=== PATIENT | female | born 1940 | race Caucasian/White ===

== ENCOUNTER 2016-07-31 18:40 | Inpatient (IN) | payer MEDICARE, BC ==
[~2016-07-31] VITALS: Ht 152.4 cm; Wt 57.1 kg
[2016-07-31] MEDS ORDERED: IV NORMAL SALINE 1,000ML 1,000 ML IV SCH (19:09)
[2016-07-31] MEDS ORDERED: 0.9 % SODIUM CHLORIDE 10 ML DISP.SYRIN. IV PRN (19:15)
--- NOTE | 2016-07-31 19:25 | PHYS DOC ---
General Chief Complaint: PSYCH EVALUATION Stated Complaint: patient is not eating or drinking and refuses to cooperate with staff Time Seen by MD: 18:44 Source: patient, family, EMS, EMS notes reviewed, [facility] records Exam Limitations: clinical condition Problems: History of Present Illness Initial Comments Patient is a pleasant 75-year-old female with history of Alzheimer's, Parkinson' s, spinal stenosis, unspecified breast mass and breast cancer, with a history of hypertension and hyperlipidemia who presents because she is refusing medication her sleep cycles off she combative since being admitted to their [facility] facility she's been throwing shoes refusing to eat refusing to cooperate with staff. She is also continuing to deteriorate in the way of effusion despite being given something for sleep at night. She was recently had Ambien added to her regimen for sleep as well as melatonin and Ativan. She's been referred to our hospital for inpatient evaluation and admission for psychiatric services. She at this time denies any chest pain abdominal pain or other complaints. Timing/Duration: getting worse, changing over time Severity: moderate Associated Symptoms: denies symptoms Past Medical History Psych/General History: other (Alzheimer's, Parkinson's, dementia, spinal stenosis, breast cancer, hypertension, hyperlipidemia,) Family History Significant Family History: no pertinent family hx Social History Smoker: non-smoker Alcohol: none Drugs: none Review of Systems Constitutional: no symptoms reported EENTM: no symptoms reported Respiratory: no symptoms reported Cardiovascular: no symptoms reported Gastrointestinal: no symptoms reported Genitourinary: no symptoms reported Musculoskeletal: no symptoms reported Skin: no symptoms reported Psychiatric/Neurological: see HPI All Other Systems: Reviewed and Negative Physical Exam General Appearance: no apparent distress, thin HEENT: PERRL/EOMI, normal ENT inspection, pharynx normal Neck: non-tender, full range of motion, supple, normal inspection Respiratory: chest non-tender, lungs clear, normal breath sounds, no respiratory distress Cardiovascular: normal peripheral pulses, regular rate, rhythm, no edema Gastrointestinal: normal bowel sounds, non tender Extremities: non-tender, normal range of motion Neurological/Psychiatric: alert, calm, responds to pain Appearance/Memory/Insight: appropriate appearance, denies illness, impaired insight, impaired recent memory Behavior/Eye Contact/Speech: cooperative Thoughts/Hallucinations: delusions Skin: normal color, warm/dry Orders, Labs, Meds Patient is oriented except at the scene peripheral health care unit here at [facility] we will complete a medical screening exam to ensure that no other source of infection is causing her altered mental status changes to include urinalysis, solid non-ST segment elevated patient my as well as electrolyte abnormalities or localized infection. 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 SUJATHA CORONADO MD Jul 31, 2016 19:24
[2016-07-31 19:55] LABS: BASO % 0 % (0-3); EOS # 0.1 x10^3/uL (0.0-0.7); EOS % 2 % (0-3); HEMATOCRIT 36.9 % (36.0-47.0); HEMOGLOBIN 12.1 g/dL (12.0-15.5); LYMPH # 2.1 x10^3/uL (1.0-4.8); LYMPH % 36 % (24-48); MEAN CORPUSCULAR HEMOGLOBIN 30 pg (25-35); MEAN CORPUSCULAR HGB CONC 33 g/dL (31-37); MEAN CORPUSCULAR VOLUME 91 fL (79-100); MONO # 0.9 x10^3/uL (0.0-1.1); MONO % 16 % (0-9); NEUT # 2.7 x10^3uL (1.8-7.7); NEUT % 46 % (31-73); PLATELET COUNT 364 x10^3/uL (140-400); RED BLOOD COUNT 4.04 x10^6/uL (3.50-5.40); RED CELL DISTRIBUTION WIDTH 14.2 % (11.5-14.5); WHITE BLOOD COUNT 5.9 x10^3/uL (4.0-11.0)
[2016-07-31 20:05] LABS: CALCIUM 8.8 mg/dL (8.5-10.1); CREATININE 1.3 mg/dL (0.6-1.0); GFR 39.9; MAGNESIUM 1.8 mg/dL (1.8-2.4); POTASSIUM 3.5 mmol/L (3.5-5.1)
[2016-07-31 20:11] LABS: ACETAMIN < 2 mcg/mL (10-30); SALIC 0.3 mg/dL (2.8-20.0)
[2016-07-31 20:54] LABS: BILIRUBIN,URINE NEG (NEG); CLARITY,URINE CLOUDY; COLOR,URINE AMBER; GLUCOSE,URINE 100 mg/dL (NEG)
[2016-07-31 20:55] LABS: NITRITE,URINE NEG (NEG); UROBILINOGEN,URINE 2 mg/dL (0.2 mg/dL)
[2016-07-31 20:56] LABS: BACTERIA,URINE FEW /HPF (0-FEW); SQUAMOUS EPITHELIAL CELL,UR MANY /LPF
--- NOTE | 2016-07-31 22:10 | ACF ---
Admission Criteria Forms PSYCHIATRIC DISORDERS Clinical Indications for Inpatient Care (Place 'X' for any and all applicable criteria): Ongoing inpatient care may be needed for ANY ONE of the following(1)(2)(3)(4)(6) (7)(8): [ ]I. Danger to self or others not manageable at lower level of care. [ ]II. Grave disability (eg, inability to perform self care necessary at lower level of care) [X ]III. Agitation or inappropriate behavior interfering with care for primary condition (eg, attempting to discontinue lines or drains prematurely, unable to cooperate with respiratory care) [ ]IV. Severe disability or disorder indicated by ALL of the following: [ ]a) Severe behavioral health disorder-related symptoms or condition indicated by ANY ONE of the following: [ ]i) Severe problem with cognition, memory, judgment, or impulse control [ ]ii) Severe clinical manifestations (eg, hallucinations, delusions, other acute psychotic symptoms, terrell, extreme agitation or anxiety) [ ]b) Patient management at lower level of care is not feasible until acute intervention or modification is initiated. Extended stay beyond goal length of stay for the primary condition may be indicated when ANY ONE of the following is present: (1)(2)(3)(4): [ ]a) Patient is a danger to self or others and not manageable at lower level of care. [ ]b) Behavior crisis management, including physical or chemical restraints, is required and is not available at a lower level of care. [ ]c) Behavioral symptoms (e.g., agitation, somnolence, inappropriate behavior) are present, and are not manageable at a lower level of care. [ ]d) Patient cannot understand follow-up treatment and crisis plan. [ ]e) Provider and supports are not sufficiently available at lower level of care. [ ]f) Patient cannot participate (e.g., verify absence of plan for harm) and is in needed of monitoring. The original [employer] content created by [employer] has been revised. The portions of the content which have been revised are identified through the use of italic text or in bold, and [facility] has neither reviewed nor approved the modified material. All other unmodified content is copyright [facility] [employer]. Please see references footnoted in the original [employer] [facility] edition 2016 Admission Criteria Met?: Yes DMITRY BARRAZA Jul 31, 2016 22:10
[2016-08-01] MEDS ORDERED: NIFE60TA16 PO (00:16)
[2016-08-01] MEDS ORDERED: LEVO88TA4 PO (00:17)
[2016-08-01] MEDS ORDERED: FENO160T PO (00:19)
[2016-08-01] MEDS ORDERED: CITA40TA5 PO (00:19)
[2016-08-01] MEDS ORDERED: BUPR150T11 PO (00:20)
[2016-08-01] MEDS ORDERED: METO100T11 PO (00:21)
[2016-08-01] MEDS ORDERED: TRIA1CAP3 PO (00:22)
[2016-08-01] MEDS ORDERED: POLY17PO5 PO (00:26)
[2016-08-01] MEDS ORDERED: DOCU100C28 PO (00:31)
[2016-08-01] MEDS ORDERED: DONE10TA7 PO (00:31)
[2016-08-01] MEDS ORDERED: LORA0.5T PO ×2 (00:31)
[2016-08-01] MEDS ORDERED: CARB1TAB2 PO (00:31)
[2016-08-01] MEDS ORDERED: TRAV5DRO OU (00:31)
[2016-08-01] MEDS ORDERED: ASPI-612 PO (00:31)
[2016-08-01] MEDS ORDERED: MELA3TAB2 PO (00:31)
[2016-08-01] MEDS ORDERED: TIMO5DRO5 EACHEYE (00:31)
--- NOTE | 2016-08-01 00:40 | NUR ---
Pt arrived to floor @0030 accompanied by EMS. Pt admitted to Dr. Laguna, Dx: Dementia w/BD. Pt A/O to self. Pt calm, compliant, cooperative w/assessment and questions. Pt thinks she is here for a job. LCTA, HRRR, no edema noted, active bowel sounds all quads, abdomen soft, non-distended. Pt has a large bruise to left hip from previous fall prior to admit. Pt/DPOA oriented to room and unit. All questions answered at this time.
[2016-08-01 00:56] VITALS: BP 153/54
[2016-08-01 01:00] VITALS: BP 153/54
[2016-08-01] MEDS ORDERED: METHYL SALICYLATE/MENTHOL TOPICAL OINTMENT 29GM TUBE. TP PRN (01:15)
[2016-08-01] MEDS ORDERED: POLYETHYLENE GLYCOL 3350 17 GM PACKET. PO PRN (01:15)
[2016-08-01] MEDS ORDERED: MAG HYDROX/AL HYDROX/SIMETH 30 ML ORAL.SUSP PO PRN (01:15)
[2016-08-01] MEDS ORDERED: DOCUSATE SODIUM 100 MG CAPSULE PO PRN (01:15)
[2016-08-01] MEDS ORDERED: MAGNESIUM HYDROXIDE 2,400 MG/30 ML ORAL.SUSP. PO PRN (01:15)
[2016-08-01] MEDS ORDERED: ACETAMINOPHEN 325 MG TABLET PO PRN (01:15)
--- NOTE | 2016-08-01 04:21 | EKG ---
[address] [address] Test Date: 2016-07-31 Test Time: 19:16:36 Pat Name: DESI SLATER Department: Room: [address] [place] [address] Gender: F [employer]ision Instrument Maker And Repairer: : 1940 Requested By: SUJATHA CORONADO Order Number: [id number] Reading MD: Lenny White Measurements Intervals [place] Rate: 82 P: 41 UT: 130 QRS: 14 QRSD: 84 T: 39 QT: 396 QTc: 466 Interpretive Statements SINUS RHYTHM Electronically Signed On 08-04-2016 9:37:55 CDT by Lenny White
[2016-08-01 05:48] VITALS: BP 129/79
[2016-08-01] MEDS: LORazepam 0.5 MG TABLET PO SCH ×2 (08:07→19:13)
[2016-08-01] MEDS: LEVOTHYROXINE 88 MCG TABLET PO SCH (08:08)
[2016-08-01] MEDS: TRIAMTERENE/HCTZ 37.5/25MG TABLET. PO SCH (08:08)
[2016-08-01] MEDS: CARBIDOPA/LEVODOPA 25/100MG TABLET PO SCH ×3 (08:08→19:13)
[2016-08-01] MEDS: FENOFIBRATE NANOCRYSTALLIZED 145 MG TABLET PO SCH (08:08)
[2016-08-01] MEDS: CITALOPRAM 20 MG TABLET. PO SCH (08:08)
[2016-08-01] MEDS: ASPIRIN ENTERIC COATED 81 MG TABLET.DR. PO SCH (08:08)
[2016-08-01] MEDS: DONEPEZIL HCL 10 MG TABLET PO SCH (08:09)
[2016-08-01] MEDS: buPROPion SR 150 MG TABLET.SA PO SCH ×2 (08:09→19:13)
[2016-08-01] MEDS: TIMOLOL 0.5% OPHTH SOLUTION 5ML BOTTLE. OU SCH ×2 (08:09→19:13)
[2016-08-01] MEDS: METOPROLOL SUCC 24HR ER 100 MG TAB.ER.24H. PO SCH (08:09)
--- NOTE | 2016-08-01 08:25 | NUR ---
Behavior Intervention Response and Plan: BIRP Note: Behavior: Assumed Care of patient, patient located in Day Room at shift change. Patient exhibited the following behavior Calm, Disorganized, Compliant. Brief assessment on rounds of vital signs, medication needs, lab studies, and pain. Treatment plan problems 1 & 2. Intervention: Patient assessed and the following interventions initiated safety checks 15 Minute Checks Cognitive Assessment , Head to toe Assessment , Medications. Response: After interactions and interventions patient responded in the following manner, Calm , Compliant ,Cooperative. Continue to assess behaviors and condition will continue to monitor throughout the shift as needed. 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 Continue to assess patient for changes in above assessment. Monitor for medication needs, pain, and safety concerns. Hourly rounding performed to ensure safe environment.
--- NOTE | 2016-08-01 09:37 | NUR ---
SW reviewed Pt insurance upon admit. Face sheet, C-Snap and intake state Pt's insurance is Medicare and [employer].
[2016-08-01 15:34] VITALS: BP 155/66
[2016-08-01] MEDS: LATANOPROST 0.005% OPHTH SOLUTION 2.5ML BOTTLE. OU SCH (19:13)
--- NOTE | 2016-08-01 20:55 | PDOC ---
Exam Benson Demential Exam: Benson Note: Please also refer to the separate dictated note~for this date of service dictated separately.~Patient seen individually. Discussed the patient with Nursing staff reviewed the chart.~Reviewed interim history and current functioning. Reviewed vital signs,~Labs/ Radiology~and current medications noted below. Continue current treatment with the changes noted in the dictated addendum note Assessment: Vital Signs: Vital Signs Date Time Temp Pulse Resp B/P Pulse Ox O2 Delivery O2 Flow Rate FiO2 08/01/16 15:34 97.5 62 16 155/66 95 Room Air I&O Intake and Output 08/01/16 07:00 Intake Total 100 ml Balance 100 ml Intake Oral 100 ml # Voids 2 Current Medications: Meds: Current Medications Sodium Chloride (Iv Sodium Chloride 0.9% 1,000ml) 1,000 ml @ 100 mls/hr Q10H IV Last administered on 07/31/16 19:09; Start 07/31/16 at 19:09; Stop at 05:08; Status DC Sodium Chloride (Normal Saline Flush) 10 ml QSHIFT PRN IV AFTER MEDS AND BLOOD DRAWS Last administered on 07/31/16 20:05; Start 07/31/16 at 19:15 Acetaminophen (Tylenol) 650 mg PRN Q6HRS PRN PO PAIN / TEMP; Start 08/01/16 at 01:15 Multi-Ingredient Ointment (Analgesic Darfur) 1 shadia PRN QID PRN TP MUSCLE PAIN; Start 08/01/16 at 01:15 Al Hydroxide/Mg Hydroxide (Mylanta Plus Xs) 15 ml PRN AFTMEALHC PRN PO DYSPEPSIA; Start 08/01/16 at 01:15 Magnesium Hydroxide (Milk Of Magnesia) 2,400 mg PRN QHS PRN PO CONSTIPATION; Start 08/01/16 at 01:15 Aspirin (Aspirin Enteric Coated) 81 mg DAILY PO Last administered on 08/01/16 08:08; Start 08/01/16 at 09:00 Carbidopa/Levodopa (Sinemet 25/100) 1 tab TID PO Last administered on 19:13; Start 08/01/16 at 09:00 Docusate Sodium (Colace) 100 mg PRN DAILY PRN PO CONSTIPATION; Start 08/01/16 at 01:15 Levothyroxine Sodium (Synthroid) 88 mcg DAILYAC PO Last administered on 08:08; Start 08/01/16 at 07:30 Metoprolol Succinate (Toprol Xl) 100 mg DAILY PO Last administered on 08:09; Start 08/01/16 at 09:00 Polyethylene Glycol (miraLAX) 17 gm PRN DAILY PRN PO CONSTIPATION; Start at 01:15 Timolol Maleate (Timoptic 0.5% [facility]) 1 drop BID OU Last administered on 19:13; Start 08/01/16 at 09:00 Fenofibrate (Tricor) 145 mg DAILY PO Last administered on 08/01/16 08:08; Start 08/01/16 at 09:00 Nifedipine (Procardia Xl) 60 mg DAILY PO Last administered on 08/01/16 08:10; Start 08/01/16 at 09:00 Latanoprost (Xalatan) 1 drop QHS OU Last administered on 08/01/16 19:13; Start 08/01/16 at 21:00 Triamterene/HCTZ (Maxzide 37.5/ 25mg) 1 tab DAILY PO Last administered on 08:08; Start 08/01/16 at 09:00 Bupropion HCl (Wellbutrin Sr) 150 mg BID PO Last administered on 08/01/16 19: 13; Start 08/01/16 at 09:00 Donepezil HCl (Aricept) 10 mg DAILY PO Last administered on 08/01/16 08:09; Start 08/01/16 at 09:00 Lorazepam (Ativan) 0.5 mg BID PO Last administered on 08/01/16 19:13; Start at 09:00 Lorazepam (Ativan) 0.5 mg PRN Q6HRS PRN PO ANXIETY / AGITATION; Start 08/01/16 at 01:15 Melatonin 3 mg PRN QHS PRN PO INSOMNIA; Start 08/01/16 at 01:15 Citalopram Hydrobromide (Celexa) 40 mg DAILY PO Last administered on 08/01/16 08:08; Start 08/01/16 at 09:00 Active Scripts Active Reported Timolol Maleate 10 Ml Drops 1 Drop EACHEYE BID Docusate Sodium 100 Mg Capsule 100 Mg PO PRN DAILY PRN Melatonin 3 Mg Tablet 3 Mg PO PRN QHS PRN Lorazepam 0.5 Mg Tablet 0.5 Mg PO PRN Q6HRS PRN Travatan Z (Travoprost) 5 Ml Drops 1 Drop OU QHS Lorazepam 0.5 Mg Tablet 0.5 Mg PO BID Donepezil Hcl 10 Mg Tablet 10 Mg PO DAILY Sinemet 25-100 Mg Tablet (Carbidopa/Levodopa) 1 Each Tablet 1 Tab PO TID Aspirin Ec (Aspirin) 81 Mg Tablet.dr 81 Mg PO DAILY Miralax (Polyethylene Glycol 3350) 17 Gm Powd.pack 17 Gm PO PRN DAILY PRN Triamterene-Hctz 37.5-25 Mg Cp (Triamterene/Hydrochlorothiazid) 1 Each Capsule 1 Tab PO DAILY PRN Metoprolol Succinate ( Xl ) (Metoprolol Succinate) 100 Mg Tab.er.24h 100 Mg PO DAILY Bupropion Hcl Sr (Bupropion Hcl) 150 Mg Tablet.er 150 Mg PO BID Citalopram Hbr (Citalopram Hydrobromide) 40 Mg Tablet 40 Mg PO DAILY Fenofibrate 160 Mg Tablet 160 Mg PO DAILY Levothyroxine Sodium 88 Mcg Tablet 88 Mcg PO DAILYAC Nifedipine Er (Nifedipine) 60 Mg Tab.er.24 60 Mg PO DAILY Diagnosis: Problems: (1) Altered mental status (2) Acute adjustment disorder BHAVNA CAMARA MD Aug 01, 2016 20:55
--- NOTE | 2016-08-02 03:15 | NUR ---
Behavior Intervention Response and Plan: BIRP Note: Behavior: Assumed Care of patient, patient located in Day Room at shift change. Patient exhibited the following behavior Calm, Interactive, Cooperative. Brief assessment on rounds of vital signs, medication needs, lab studies, and pain. Treatment plan problems 1 and 2. Intervention: Patient assessed and the following interventions initiated safety checks 15 Minute Checks Cognitive Assessment , Head to toe Assessment , Medications. Response: After interactions and interventions patient responded in the following manner, Calm , Compliant ,Cooperative. Continue to assess behaviors and condition will continue to monitor throughout the shift as needed. 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 Continue to assess patient for changes in above assessment. Monitor for medication needs, pain, and safety concerns. Hourly rounding performed to ensure safe environment.
[2016-08-02 05:10] LABS: HEMOGLOBIN A1C 5.3 % (4.8-5.6)
[2016-08-02 05:54] VITALS: BP 97/62
[2016-08-02 06:09] LABS: T3 TOTAL 68 ng/dL (71-180); THYROXINE 6.6 ug/dL (4.5-12.0)
[2016-08-02] MEDS: METOPROLOL SUCC 24HR ER 100 MG TAB.ER.24H. PO SCH (09:00)
[2016-08-02] MEDS: DONEPEZIL HCL 10 MG TABLET PO SCH (09:38)
[2016-08-02] MEDS: TRIAMTERENE/HCTZ 37.5/25MG TABLET. PO SCH (09:38)
[2016-08-02] MEDS: buPROPion SR 150 MG TABLET.SA PO SCH ×2 (09:38→19:44)
[2016-08-02] MEDS: FENOFIBRATE NANOCRYSTALLIZED 145 MG TABLET PO SCH (09:38)
[2016-08-02] MEDS: CARBIDOPA/LEVODOPA 25/100MG TABLET PO SCH ×3 (09:38→19:44)
[2016-08-02] MEDS: LEVOTHYROXINE 88 MCG TABLET PO SCH (09:39)
[2016-08-02] MEDS: CITALOPRAM 20 MG TABLET. PO SCH (09:39)
[2016-08-02] MEDS: ASPIRIN ENTERIC COATED 81 MG TABLET.DR. PO SCH (09:39)
[2016-08-02] MEDS: LORazepam 0.5 MG TABLET PO SCH ×2 (09:41→19:44)
[2016-08-02] MEDS: TIMOLOL 0.5% OPHTH SOLUTION 5ML BOTTLE. OU SCH ×2 (09:41→19:44)
--- NOTE | 2016-08-02 12:01 | NUR ---
Patient was leaning on cupboard in day room and was witnessed sliding to the floor. No injuries were obtained. Patient could not answer what she was doing. Patient appeared unsteady when assisted to standing and kept closing her eyes. Asked her if she is tired, she denies. Assisted to chair and will continue to monitor. Addendum: 08/02/16 at 1859 by NOELLE ALFARO RN per Dr. powers, consulted Dr. Heredia. He is concerned that it may have been seizure like. Yan paged and notified.
--- NOTE | 2016-08-02 15:03 | CONS ---
DATE OF CONSULTATION: 08/01/2016 REASON FOR CONSULTATION: Medical management. HISTORY OF PRESENT ILLNESS: The patient is a 75-year-old female patient with past medical history significant for Alzheimer disease, Parkinson's disease, spinal stenosis, who came from [facility] in account of using medication. Her sleep cycle off. She is combatic since being admitted to that [place] [facility]. She has been throwing shoes, refusing to eat, refusing to cooperate with staff. She also continued to deteriorate in the way of confusion despite being given something for sleep at night. She was recently on Ambien and that was added to her regimen for sleep as well as melatonin and Ativan and was [facility]. The patient herself seemed to be extremely confused, was in no apparent distress and denied any complaint. PAST MEDICAL HISTORY: Significant for breast cancer, hypertension, hyperlipidemia, hypothyroidism, Parkinson's disease, spinal stenosis. PAST PSYCHIATRIC HISTORY: Significant for Alzheimer's disease for advanced dementia. PAST SURGICAL HISTORY: Unremarkable. FAMILY HISTORY: Noncontributory. SOCIAL HISTORY: She is a [place] [facility] resident. Does not smoke, drink alcohol or use recreational drugs. REVIEW OF SYSTEMS: As per history of present illness. ALLERGIES: She is allergic to LOVASTATIN, NIACIN, NICKEL and . MEDICATIONS: She is currently on following medications: She is on aspirin 81 mg once a day, Wellbutrin 150 mg twice a day, carbidopa/levodopa 25/100 one tablet 3 times a day, citalopram hydrobromide 40 mg once a day, sodium 100 mg once a day, Aricept 10 mg once a day, fenofibrate 160 mg once a day, levothyroxine sodium 88 mcg once a day, lorazepam 0.5 mg twice a day, lorazepam 0.5 mg every 6 hours as needed, melatonin 3 mg tablet once a day, metoprolol succinate 100 mg once a day, nifedipine 60 mg daily, polyethylene glycol 17 grams as needed for constipation, timolol maleate 10 mL one drop to each eye twice a day, travoprost for Travatan 1 drop to both eyes at bedtime, triamterene/hydrochlorothiazide 37.5/25 one tablet once a day. PHYSICAL EXAMINATION: GENERAL: When I examined her, she looked well and was clearly in no apparent respiratory distress, pale, but no jaundice, cyanosis or thyromegaly. No jugular venous distention. No limb edema. VITAL SIGNS: Her heart rate was 62, blood pressure 155/66, temperature was 97.5, respiratory rate was 16 and oxygen saturation was 95%. HEAD, EYES, EARS, NOSE AND THROAT: Showed normocephalic, atraumatic. NECK: Supple. HEART: Showed normal first and second heart sounds with no gallop, rub or murmur. CHEST: Clear to auscultation. No crepitation or rhonchi. ABDOMEN: Distended, soft, nontender. No guarding or rigidity. No organomegaly. All hernial orifices intact. Bowel sounds normal. NEUROLOGIC: She is demented, very confused, but all her cranial nerves are intact. EXTREMITIES: She moves her extremities without difficulty. She ambulates without assistance or assistive devices. LABORATORY DATA: Showed a white cell count of 5900, hemoglobin 12, hematocrit 36, MCV 91, and platelet count of 364,000 with normal manual differential. Her chemistry showed a serum sodium 140, potassium 3.5, chloride 104, bicarbonate 28, anion gap of 8, BUN 32, creatinine 1.3, estimated GFR was 40 mL per minute. Her glucose was 108, calcium was 8.8, and magnesium was 1.8. Her TSH was 2.295. Serum iron was 53, total iron binding capacity was 223 and percent saturation was 24%. Her urinalysis showed the urine was cloudy with a pH of 7, specific gravity of 115. There was trace of protein, small amount of glucose, trace of ketones, trace of blood, negative for nitrite and small amount of leukocyte esterase, 1 to 2 rbc's, 11 to 20 wbc's, very few bacteria. Toxic screen was negative. IMPRESSION: In summary, this is a 75-year-old female patient, resident at [facility], who was admitted on the account of refusing her medication. Her sleep cycle off. She is combative since being admitted to the [place] [facility]. She has been throwing shoes, refusing to eat, refusing to cooperate with staff. She is also continuing to deteriorate in the way of confusion despite being given something for sleep at night time. She was admitted to this unit for inpatient psychiatric stabilization. She has multiple medical problems including hyperlipidemia, hypertension, Parkinson's disease, hypothyroidism, breast cancer and spinal stenosis. When evaluating her vital signs are all within acceptable range. Her lab works are also within acceptable range except that her BUN and creatinine are slightly elevated, probably reflecting the fact that she is not eating and drinking. She is also on diuretics. I will definitely continue with all her medication from now. We will push fluid and repeat her labs. Her lab work, perhaps tomorrow or Thursday to make sure that her BUN and creatinine are back to the baseline. Thank you, Dr. Laguna for allowing me to participate in the care of this patient. LUCIANA GUERRERO MD DR: AZAR/zunilda JOB#: [id number] / [id number]
--- NOTE | 2016-08-02 15:43 | NUR ---
Behavior Intervention Response and Plan: BIRP Note: Behavior: Assumed Care of patient, patient located in Day Room at shift change. Patient exhibited the following behavior Drowsy, Non Compliant with Meds, Disorganized. Brief assessment on rounds of vital signs, medication needs, lab studies, and pain. Treatment plan problems 1 and 2. Intervention: Patient assessed and the following interventions initiated safety checks 15 Minute Checks Head to toe Assessment , Medications , Oral Hydration. Response: After interactions and interventions patient responded in the following manner, Calm , Disorganized ,Compliant. Continue to assess behaviors and condition will continue to monitor throughout the shift as needed. Plan: Continue to monitor Master Treatment Plan for patient's progress toward short term goals of Decreased Agitation, Decreased Aggression, laborer marine terminal goals to return to previous living setting vs placement. Continue to assess patient for changes in above assessment. Monitor for medication needs, pain, and safety concerns. Hourly rounding performed to ensure safe environment.
[2016-08-02 16:22] VITALS: BP 93/53
[2016-08-02] MEDS: LATANOPROST 0.005% OPHTH SOLUTION 2.5ML BOTTLE. OU SCH (19:44)
--- NOTE | 2016-08-02 22:22 | PDOC ---
Exam Benson Demential Exam: Benson Note: Please also refer to the separate dictated note~for this date of service dictated separately.~Patient seen individually. Discussed the patient with Nursing staff reviewed the chart.~Reviewed interim history and current functioning. Reviewed vital signs,~Labs/ Radiology~and current medications noted below. Continue current treatment with the changes noted in the dictated addendum note Assessment: Vital Signs: Vital Signs Date Time Temp Pulse Resp B/P Pulse Ox O2 Delivery O2 Flow Rate FiO2 08/02/16 16:22 96.8 76 16 93/53 97 08/01/16 15:34 Room Air I&O Intake and Output 08/02/16 07:00 Intake Total 700 ml Balance 700 ml Intake Oral 700 ml Current Medications: Meds: Current Medications Sodium Chloride (Iv Sodium Chloride 0.9% 1,000ml) 1,000 ml @ 100 mls/hr Q10H IV Last administered on 07/31/16 19:09; Start 07/31/16 at 19:09; Stop at 05:08; Status DC Sodium Chloride (Normal Saline Flush) 10 ml QSHIFT PRN IV AFTER MEDS AND BLOOD DRAWS Last administered on 07/31/16 20:05; Start 07/31/16 at 19:15 Acetaminophen (Tylenol) 650 mg PRN Q6HRS PRN PO PAIN / TEMP; Start 08/01/16 at 01:15 Multi-Ingredient Ointment (Analgesic [place]) 1 shadia PRN QID PRN TP MUSCLE PAIN; Start 08/01/16 at 01:15 Al Hydroxide/Mg Hydroxide (Mylanta Plus Xs) 15 ml PRN AFTMEALHC PRN PO DYSPEPSIA; Start 08/01/16 at 01:15 Magnesium Hydroxide (Milk Of Magnesia) 2,400 mg PRN QHS PRN PO CONSTIPATION; Start 08/01/16 at 01:15 Aspirin (Aspirin Enteric Coated) 81 mg DAILY PO Last administered on 08/02/16 09:39; Start 08/01/16 at 09:00 Carbidopa/Levodopa (Sinemet 25/100) 1 tab TID PO Last administered on 19:44; Start 08/01/16 at 09:00 Docusate Sodium (Colace) 100 mg PRN DAILY PRN PO CONSTIPATION; Start 08/01/16 at 01:15 Levothyroxine Sodium (Synthroid) 88 mcg DAILYAC PO Last administered on 09:39; Start 08/01/16 at 07:30 Metoprolol Succinate (Toprol Xl) 100 mg DAILY PO Last administered on 08:09; Start 08/01/16 at 09:00 Polyethylene Glycol (miraLAX) 17 gm PRN DAILY PRN PO CONSTIPATION; Start at 01:15 Timolol Maleate (Timoptic 0.5% [facility]) 1 drop BID OU Last administered on 19:44; Start 08/01/16 at 09:00 Fenofibrate (Tricor) 145 mg DAILY PO Last administered on 08/02/16 09:38; Start 08/01/16 at 09:00 Nifedipine (Procardia Xl) 60 mg DAILY PO Last administered on 08/01/16 08:10; Start 08/01/16 at 09:00 Latanoprost (Xalatan) 1 drop QHS OU Last administered on 08/02/16 19:44; Start 08/01/16 at 21:00 Triamterene/HCTZ (Maxzide 37.5/ 25mg) 1 tab DAILY PO Last administered on 09:38; Start 08/01/16 at 09:00 Bupropion HCl (Wellbutrin Sr) 150 mg BID PO Last administered on 08/02/16 19: 44; Start 08/01/16 at 09:00 Donepezil HCl (Aricept) 10 mg DAILY PO Last administered on 08/02/16 09:38; Start 08/01/16 at 09:00 Lorazepam (Ativan) 0.5 mg BID PO Last administered on 08/02/16 19:44; Start at 09:00 Lorazepam (Ativan) 0.5 mg PRN Q6HRS PRN PO ANXIETY / AGITATION; Start 08/01/16 at 01:15 Melatonin 3 mg PRN QHS PRN PO INSOMNIA; Start 08/01/16 at 01:15 Citalopram Hydrobromide (Celexa) 40 mg DAILY PO Last administered on 08/02/16 09:39; Start 08/01/16 at 09:00 Active Scripts Active Reported Timolol Maleate 10 Ml Drops 1 Drop EACHEYE BID Docusate Sodium 100 Mg Capsule 100 Mg PO PRN DAILY PRN Melatonin 3 Mg Tablet 3 Mg PO PRN QHS PRN Lorazepam 0.5 Mg Tablet 0.5 Mg PO PRN Q6HRS PRN Travatan Z (Travoprost) 5 Ml Drops 1 Drop OU QHS Lorazepam 0.5 Mg Tablet 0.5 Mg PO BID Donepezil Hcl 10 Mg Tablet 10 Mg PO DAILY Sinemet 25-100 Mg Tablet (Carbidopa/Levodopa) 1 Each Tablet 1 Tab PO TID Aspirin Ec (Aspirin) 81 Mg Tablet.dr 81 Mg PO DAILY Miralax (Polyethylene Glycol 3350) 17 Gm Powd.pack 17 Gm PO PRN DAILY PRN Triamterene-Hctz 37.5-25 Mg Cp (Triamterene/Hydrochlorothiazid) 1 Each Capsule 1 Tab PO DAILY PRN Metoprolol Succinate ( Xl ) (Metoprolol Succinate) 100 Mg Tab.er.24h 100 Mg PO DAILY Bupropion Hcl Sr (Bupropion Hcl) 150 Mg Tablet.er 150 Mg PO BID Citalopram Hbr (Citalopram Hydrobromide) 40 Mg Tablet 40 Mg PO DAILY Fenofibrate 160 Mg Tablet 160 Mg PO DAILY Levothyroxine Sodium 88 Mcg Tablet 88 Mcg PO DAILYAC Nifedipine Er (Nifedipine) 60 Mg Tab.er.24 60 Mg PO DAILY Diagnosis: Problems: (1) Altered mental status (2) Acute adjustment disorder BHAVNA CAMARA MD Aug 02, 2016 22:22
[2016-08-02] MEDS: LORazepam 0.5 MG TABLET PO PRN (22:42)
[2016-08-02] MEDS: MELATONIN 3 MG TABLET PO PRN (22:42)
--- NOTE | 2016-08-02 22:45 | NUR ---
Pt anxious and unable to sleep, attempting to get OOB without assist several times. PRN Melatonin for sleep and PRN Ativan for anxiety administered as ordered at this time.
--- NOTE | 2016-08-02 23:25 | NUR ---
Behavior Intervention Response and Plan: BIRP Note: Behavior: Assumed Care of patient, patient located in Day Room at shift change. Patient exhibited the following behavior Restless, Disorganized, Compliant. Brief assessment on rounds of vital signs, medication needs, lab studies, and pain. Treatment plan problems 1 and 2. Intervention: Patient assessed and the following interventions initiated safety checks 15 Minute Checks Cognitive Assessment , Head to toe Assessment , Medications. Response: After interactions and interventions patient responded in the following manner, Calm , Compliant ,Anxious. Continue to assess behaviors and condition will continue to monitor throughout the shift as needed. Plan: Continue to monitor Master Treatment Plan for patient's progress toward short term goals of Decreased Anxiety, Medication Compliance, extermination inspector goals to return to previous living setting vs placement. Continue to assess patient for changes in above assessment. Monitor for medication needs, pain, and safety concerns. Hourly rounding performed to ensure safe environment.
[2016-08-03 06:05] VITALS: BP 108/64
[2016-08-03] MEDS: LEVOTHYROXINE 88 MCG TABLET PO SCH (07:30)
[2016-08-03] MEDS: METOPROLOL SUCC 24HR ER 100 MG TAB.ER.24H. PO SCH ×2 (07:46→09:00)
[2016-08-03] MEDS: CARBIDOPA/LEVODOPA 25/100MG TABLET PO SCH ×4 (07:46→19:58)
[2016-08-03] MEDS: CITALOPRAM 20 MG TABLET. PO SCH ×2 (07:46→09:00)
[2016-08-03] MEDS: buPROPion SR 150 MG TABLET.SA PO SCH ×3 (07:46→19:58)
[2016-08-03] MEDS: ASPIRIN ENTERIC COATED 81 MG TABLET.DR. PO SCH ×2 (07:46→09:00)
[2016-08-03] MEDS: TRIAMTERENE/HCTZ 37.5/25MG TABLET. PO SCH ×2 (07:47→09:00)
[2016-08-03] MEDS: FENOFIBRATE NANOCRYSTALLIZED 145 MG TABLET PO SCH ×2 (07:47→09:00)
[2016-08-03] MEDS: DONEPEZIL HCL 10 MG TABLET PO SCH ×2 (07:47→09:00)
[2016-08-03] MEDS: LORazepam 0.5 MG TABLET PO SCH ×3 (07:49→19:58)
[2016-08-03] MEDS: TIMOLOL 0.5% OPHTH SOLUTION 5ML BOTTLE. OU SCH ×3 (07:49→19:58)
--- NOTE | 2016-08-03 12:51 | NUR ---
Patient very disoriented today, she slept in until approx. 1130, and is not able to follow instructions without being told multiple times to do something, and has to be guided. She has her arms crossed and eyes shut while in the dining room and is refusing to take medications after multiple attempts, she just swings her hands toward staff. Patient is also refusing VS at this time, will continue to monitor.
--- NOTE | 2016-08-03 13:12 | NUR ---
Behavior Intervention Response and Plan: BIRP Note: Behavior: Assumed Care of patient, patient located in Patient Room at shift change. Patient exhibited the following behavior Resistive, Irritable, Non Compliant with Meds. Brief assessment on rounds of vital signs, medication needs, lab studies, and pain. Treatment plan problems . Intervention: Patient assessed and the following interventions initiated safety checks 15 Minute Checks , Head to toe Assessment , Medications. Response: After interactions and interventions patient responded in the following manner, Calm , Compliant ,Cooperative. Continue to assess behaviors and condition will continue to monitor throughout the shift as needed. Plan: Continue to monitor Master Treatment Plan for patient's progress toward short term goals of Decreased Anxiety, Medication Compliance, fci goals to return to previous living setting vs placement. Continue to assess patient for changes in above assessment. Monitor for medication needs, pain, and safety concerns. Hourly rounding performed to ensure safe environment.
[2016-08-03 17:39] VITALS: BP 125/80
[2016-08-03] MEDS: LATANOPROST 0.005% OPHTH SOLUTION 2.5ML BOTTLE. OU SCH (19:58)
[2016-08-03] MEDS: busPIRone 5 MG TABLET. PO SCH (19:59)
--- NOTE | 2016-08-04 01:05 | NUR ---
Behavior Intervention Response and Plan: BIRP Note: Behavior: Assumed Care of patient, patient located in Patient Room at shift change. Patient exhibited the following behavior Withdrawn, Somatic, Drowsy. Brief assessment on rounds of vital signs, medication needs, lab studies, and pain. Treatment plan problems 1-2. Intervention: Patient assessed and the following interventions initiated safety checks 15 Minute Checks Cognitive Assessment , Head to toe Assessment , Medications. Response: After interactions and interventions patient responded in the following manner, Calm , Sleeping ,Withdrawn. Continue to assess behaviors and condition will continue to monitor throughout the shift as needed. 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 Continue to assess patient for changes in above assessment. Monitor for medication needs, pain, and safety concerns. Hourly rounding performed to ensure safe environment.
[2016-08-04 06:04] VITALS: BP 103/55
[2016-08-04] MEDS: LEVOTHYROXINE 88 MCG TABLET PO SCH (06:44)
[2016-08-04] MEDS: TIMOLOL 0.5% OPHTH SOLUTION 5ML BOTTLE. OU SCH ×2 (06:49→20:16)
--- NOTE | 2016-08-04 07:37 | NUR ---
Patient in day room sitting up on the couch with eyes closed and arms crossed. Nurse approached patient and asked her if she needed to use the restroom, patient responded, "get away from me before I slap you in the face right here", will attempt to collect urine at another time. Addendum: 08/04/16 at 0930 by RL BAGLEY RN Patient extremely combative during shower, screaming and punching at staff. She continues to refuse to eat and take her medications, will continue to monitor. Addendum: 08/04/16 at 1418 by RL BAGLEY RN Nurse approached patient, who is sitting outside dining room with arms crossed and eyes shut. Patient is still refusing medications, because she states we are being mean to her but would not elaborate, will continue to monitor.
[2016-08-04] MEDS: DONEPEZIL HCL 10 MG TABLET PO SCH (09:00)
[2016-08-04] MEDS: buPROPion SR 150 MG TABLET.SA PO SCH ×2 (09:00→20:10)
[2016-08-04] MEDS: busPIRone 5 MG TABLET. PO SCH ×2 (09:00→20:09)
[2016-08-04] MEDS: CHOLECALCIFEROL (VITAMIN D3) 50,000 UNIT CAPSULE PO SCH (09:00)
[2016-08-04] MEDS: LORazepam 0.5 MG TABLET PO SCH ×2 (09:00→20:11)
[2016-08-04] MEDS: CARBIDOPA/LEVODOPA 25/100MG TABLET PO SCH ×3 (09:00→20:10)
[2016-08-04] MEDS: ASPIRIN ENTERIC COATED 81 MG TABLET.DR. PO SCH (09:00)
[2016-08-04] MEDS: TRIAMTERENE/HCTZ 37.5/25MG TABLET. PO SCH (09:00)
[2016-08-04] MEDS: METOPROLOL SUCC 24HR ER 100 MG TAB.ER.24H. PO SCH (09:00)
[2016-08-04] MEDS: FENOFIBRATE NANOCRYSTALLIZED 145 MG TABLET PO SCH (09:00)
[2016-08-04] MEDS: CITALOPRAM 20 MG TABLET. PO SCH (09:00)
[2016-08-04 11:02] LABS: AMORPHOUS SEDIMENT,UR PRESENT /HPF; BACTERIA,URINE 0 /HPF (0-FEW); BILIRUBIN,URINE NEG (NEG); CLARITY,URINE CLEAR; COLOR,URINE YELLOW; GLUCOSE,URINE NEG (NEG); HYALINE CASTS, URINE OCC /HPF; NITRITE,URINE NEG (NEG); RBC,URINE 0 /HPF (0-2); SQUAMOUS EPITHELIAL CELL,UR FEW /LPF; UROBILINOGEN,URINE 0.2 mg/dL (0.2 mg/dL); WBC,URINE RARE /HPF (0-4)
--- NOTE | 2016-08-04 12:00 | HP ---
ADMIT DATE: 08/01/2016 PSYCHIATRIC ADMISSION HISTORY AND EVALUATION IDENTIFYING DATA: The patient is a 75-year-old female referred to us from [facility] by Dr. Ramsey Jordan on account of increasing agitation. The patient was refusing medications, having significant sleep changes, agitated, combative, refusing to eat and will only eat if her son comes in and that is even very intermittently. She is being treated for diagnosis of Lewy body dementia, which has been increasingly psychotic recently, unmanageable, referred for this inpatient psychiatric stabilization. CHIEF COMPLAINT: "No, I don't know." The patient responded after I introduced myself and asked her when she came here and from where. HISTORY OF PRESENT ILLNESS: The patient reportedly has a history of dementia, Lewy body type versus Alzheimer's, vascular. She has been residing at the above facility for some time. More recently she has appeared increasingly agitated, confused, paranoid, psychotic. She has had sleep and appetite changes and behaviors have been unmanageable, potentially dangerous, thus resulting in this referral. No clear symptoms of bipolar disorder, suicidal or homicidal ideation. PAST PSYCHIATRIC HISTORY: As above. MEDICAL HISTORY: Positive for Parkinson's disease, hyperlipidemia, hypertension, hypothyroidism, spinal stenosis, osteoarthritis, sleep apnea, chronic kidney disease, chronic constipation. UA was positive in the ER. Culture is pending. CODE STATUS: DNR. ALLERGIES: NIASPAN, LOVASTATIN, VESICARE, NICKEL. CURRENT PSYCHOTROPICS: Wellbutrin 150 mg b.i.d., Celexa 40 mg a day, Aricept 10 mg a day, Ativan 0.5 b.i.d. plus p.r.n., melatonin 3 mg at bedtime p.r.n. FAMILY HISTORY: Noncontributory. SOCIAL HISTORY: No history of alcohol or drug abuse, physical, sexual, or elder abuse history is noted. She is not known to be a perpetrator. MENTAL STATUS EXAMINATION: The patient was seen individually on 08/01/2016. She ambulates on her own. Oriented to herself. Insight, judgment, recent and remote memory, attention, concentration, fund of knowledge poor, consistent with her diagnosis. VITAL SIGNS: Temperature 97.5, pulse 62, BP 155/66. REVIEW OF SYSTEMS: No CV, , pulmonary, eye, ENT system symptoms on review. Reliability poor. IMPRESSION: Major neurocognitive disorder, Lewy body, Alzheimer's, vascular with depression, delusion, behavioral disturbance; anxiety disorder, unspecified; impulse control disorder, unspecified. Rest diagnoses unchanged. PLAN: Admit to the geropsychiatry unit at [facility]. I will see the patient daily individually. Medical follow up with Dr. Joseph/Dr. Espinoza. Continue the patient on current medications. Treat the UTI if confirmed. We will defer to Dr. Espinoza. Observe baseline, then adjust psychotropics as clinically indicated. MAN Hannah CAMARA MD DR: RYLIE/zunilda JOB#: [id number] / [id number]
--- NOTE | 2016-08-04 12:05 | PN ---
DATE: 08/02/2016 PSYCHIATRIC PROGRESS NOTE This is a late entry 08/02/2016, covers elements not covered in my initial note. SUBJECTIVE: The patient remains confused. Blood pressure was low morning at 08/02/2016 of 97/62. Metoprolol was held. She refused her a.m. medications, took them later at 10:00 a.m. Slid herself down to the floor, questionable seizure-like activity, but probably not, as the family felt she feigns illness. Nevertheless, we will have a Neurology consult with Dr. Heredia. Gait somewhat unsteady. REVIEW OF SYSTEMS: No CV, , pulmonary, eye, ENT system symptoms on review. Reliability poor. MENTAL STATUS EXAM: Oriented to herself. Insight, judgment, recent and remote memory, attention, concentration, fund of knowledge poor, consistent with her diagnosis mentioned in my initial note. IMPRESSION: Major neurocognitive disorder, Alzheimer, vascular and Lewy body with depression, delusion and behavioral disturbance; anxiety disorder, unspecified; impulse control disorder, unspecified. Rest unchanged. Possible urinary tract infection. PLAN: Admit to Geropsychiatry Unit at [facility]. I will see the patient daily individually, medical followup with Dr. Joseph/Dr. Espinoza possibly treat the UTI. Make further adjustments in the psychotropics as clinically indicated. MAN Hannah CAMARA MD DR: RYLIE/zunilda JOB#: [id number] / [id number]
--- NOTE | 2016-08-04 15:20 | NUR ---
ACTIVITY THERAPY ASSESSMENT Completed based on observations and interview on this day at this time in [facility]. FLYER MAKER approached Pt. after she had vital signs taken. She had her eyes closed the entire time and appeared to be calm. Pt. would not greet FLYER MAKER and mumbled answers. She opened her eyes occasionally. As the questions continued, Pt. kicked FLYER MAKER twice and clearly stated "look lady, I'm not going to talk to you." She closed her eyes, crossed her arms and ignored FLYER MAKER. Pt. has minimal to no interaction with others. Initial goal: Pt. will participate fully in at least one group before discharge.
[2016-08-04 15:44] VITALS: BP 145/67
--- NOTE | 2016-08-04 20:05 | NUR ---
Nursing: Dr. Heredia here to see patient for neuro consult. Pt up in chair at end of dumas, sitting with eyes closed and arms crossed. Pt did open eyes and respond to several questions. Amb in dumas with Dr. Heredia and went to sit with peers in dayroom. Agreed to take HS pills whole, but required some coaxing. Drank entire juice. Then proceeded to close eyes and cross arms, refusing to open them to admin eye drops. Will monitor.
[2016-08-04] MEDS: MEMANTINE 5 MG TABLET. PO SCH (20:10)
[2016-08-04] MEDS: QUEtiapine 25 MG TABLET. PO SCH (20:10)
[2016-08-04] MEDS: MELATONIN 3 MG TABLET PO PRN (20:10)
[2016-08-04] MEDS: LATANOPROST 0.005% OPHTH SOLUTION 2.5ML BOTTLE. OU SCH (20:16)
--- NOTE | 2016-08-04 20:37 | PDOC ---
Exam Benson Demential Exam: Benson Note: Please also refer to the separate dictated note~for this date of service dictated separately.~Patient seen individually. Discussed the patient with Nursing staff reviewed the chart.~Reviewed interim history and current functioning. Reviewed vital signs,~Labs/ Radiology~and current medications noted below. Continue current treatment with the changes noted in the dictated addendum note Assessment: Vital Signs: Vital Signs Date Time Temp Pulse Resp B/P Pulse Ox O2 Delivery O2 Flow Rate FiO2 08/04/16 15:44 97.0 74 19 145/67 96 08/01/16 15:34 Room Air I&O Intake and Output 08/04/16 07:00 Intake Total 650 ml Balance 650 ml Intake Oral 0 ml Tube Feeding 650 ml Labs: Laboratory Tests Test 08/04/16 00:00 Urine Collection Type U cath Urine Color Yellow Urine Clarity Clear Urine pH 5.0 Urine Specific [place] 1.010 Urine Protein Neg (NEG-TRACE) Urine Glucose (UA) Negmg/dL (NEG) Urine Ketones (Stick) Negmg/dL (NEG) Urine Blood Neg (NEG) Urine Nitrite Neg (NEG) Urine Bilirubin Neg (NEG) Urine Urobilinogen Dipstick 0.2mg/dL (0.2 mg/dL) Urine Leukocyte Esterase Neg (NEG) Urine RBC 0/HPF (0-2) Urine WBC Rare/HPF (0-4) Urine Squamous Epithelial Cells Few/LPF Urine Transitional Epithelial Cells Occ/LPF Urine Amorphous Sediment Present/HPF Urine Bacteria 0/HPF (0-FEW) Urine Hyaline Casts Occ/HPF Urine Mucus Slight/LPF Current Medications: Meds: Current Medications Sodium Chloride (Iv Sodium Chloride 0.9% 1,000ml) 1,000 ml @ 100 mls/hr Q10H IV Last administered on 07/31/16 19:09; Start 07/31/16 at 19:09; Stop at 05:08; Status DC Sodium Chloride (Normal Saline Flush) 10 ml QSHIFT PRN IV AFTER MEDS AND BLOOD DRAWS Last administered on 07/31/16 20:05; Start 07/31/16 at 19:15 Acetaminophen (Tylenol) 650 mg PRN Q6HRS PRN PO PAIN / TEMP; Start 08/01/16 at 01:15 Multi-Ingredient Ointment (Analgesic [place]) 1 shadia PRN QID PRN TP MUSCLE PAIN; Start 08/01/16 at 01:15 Al Hydroxide/Mg Hydroxide (Mylanta Plus Xs) 15 ml PRN AFTMEALHC PRN PO DYSPEPSIA; Start 08/01/16 at 01:15 Magnesium Hydroxide (Milk Of Magnesia) 2,400 mg PRN QHS PRN PO CONSTIPATION; Start 08/01/16 at 01:15 Aspirin (Aspirin Enteric Coated) 81 mg DAILY PO Last administered on 08/02/16 09:39; Start 08/01/16 at 09:00 Carbidopa/Levodopa (Sinemet 25/100) 1 tab TID PO Last administered on 08/04/16 20:10; Start 08/01/16 at 09:00 Docusate Sodium (Colace) 100 mg PRN DAILY PRN PO CONSTIPATION; Start 08/01/16 at 01:15 Levothyroxine Sodium (Synthroid) 88 mcg DAILYAC PO Last administered on 07:30; Start 08/01/16 at 07:30; Stop 08/03/16 at 07:43; Status DC Metoprolol Succinate (Toprol Xl) 100 mg DAILY PO Last administered on 08:09; Start 08/01/16 at 09:00 Polyethylene Glycol (miraLAX) 17 gm PRN DAILY PRN PO CONSTIPATION; Start at 01:15 Timolol Maleate (Timoptic 0.5% [facility]) 1 drop BID OU Last administered on 19:58; Start 08/01/16 at 09:00 Fenofibrate (Tricor) 145 mg DAILY PO Last administered on 08/02/16 09:38; Start 08/01/16 at 09:00 Nifedipine (Procardia Xl) 60 mg DAILY PO Last administered on 08/01/16 08:10; Start 08/01/16 at 09:00 Latanoprost (Xalatan) 1 drop QHS OU Last administered on 08/03/16 19:58; Start 08/01/16 at 21:00 Triamterene/HCTZ (Maxzide 37.5/ 25mg) 1 tab DAILY PO Last administered on 09:38; Start 08/01/16 at 09:00 Bupropion HCl (Wellbutrin Sr) 150 mg BID PO Last administered on 08/04/16 20:10 ; Start 08/01/16 at 09:00 Donepezil HCl (Aricept) 10 mg DAILY PO Last administered on 08/02/16 09:38; Start 08/01/16 at 09:00 Lorazepam (Ativan) 0.5 mg BID PO Last administered on 08/04/16 20:11; Start at 09:00 Lorazepam (Ativan) 0.5 mg PRN Q6HRS PRN PO ANXIETY / AGITATION Last administered on 08/02/16 22:42; Start 08/01/16 at 01:15 Melatonin 3 mg PRN QHS PRN PO INSOMNIA Last administered on 08/04/16 20:10; Start 08/01/16 at 01:15 Citalopram Hydrobromide (Celexa) 40 mg DAILY PO Last administered on 08/02/16 09:39; Start 08/01/16 at 09:00; Stop 08/03/16 at 18:27; Status DC Levothyroxine Sodium (Synthroid) 88 mcg DAILY06 PO Last administered on 06:44; Start 08/04/16 at 06:00 Vitamin D (Vitamin D3) 50,000 unit WEEKLY PO ; Start 08/04/16 at 09:00 Citalopram Hydrobromide (Celexa) 20 mg DAILY PO ; Start 08/04/16 at 09:00 Buspirone HCl (Buspar) 5 mg BID PO Last administered on 08/04/16 20:09; Start 08/03/16 at 21:00 Memantine (Namenda) 5 mg BID PO Last administered on 08/04/16 20:10; Start 08/04 at 21:00 Quetiapine Fumarate (SEROquel) 12.5 mg BID PO Last administered on 08/04/16 20: 10; Start 08/04/16 at 21:00 Active Scripts Active Reported Timolol Maleate 10 Ml Drops 1 Drop EACHEYE BID Docusate Sodium 100 Mg Capsule 100 Mg PO PRN DAILY PRN Melatonin 3 Mg Tablet 3 Mg PO PRN QHS PRN Lorazepam 0.5 Mg Tablet 0.5 Mg PO PRN Q6HRS PRN Travatan Z (Travoprost) 5 Ml Drops 1 Drop OU QHS Lorazepam 0.5 Mg Tablet 0.5 Mg PO BID Donepezil Hcl 10 Mg Tablet 10 Mg PO DAILY Sinemet 25-100 Mg Tablet (Carbidopa/Levodopa) 1 Each Tablet 1 Tab PO TID Aspirin Ec (Aspirin) 81 Mg Tablet.dr 81 Mg PO DAILY Miralax (Polyethylene Glycol 3350) 17 Gm Powd.pack 17 Gm PO PRN DAILY PRN Triamterene-Hctz 37.5-25 Mg Cp (Triamterene/Hydrochlorothiazid) 1 Each Capsule 1 Tab PO DAILY PRN Metoprolol Succinate ( Xl ) (Metoprolol Succinate) 100 Mg Tab.er.24h 100 Mg PO DAILY Bupropion Hcl Sr (Bupropion Hcl) 150 Mg Tablet.er 150 Mg PO BID Citalopram Hbr (Citalopram Hydrobromide) 40 Mg Tablet 40 Mg PO DAILY Fenofibrate 160 Mg Tablet 160 Mg PO DAILY Levothyroxine Sodium 88 Mcg Tablet 88 Mcg PO DAILYAC Nifedipine Er (Nifedipine) 60 Mg Tab.er.24 60 Mg PO DAILY Diagnosis: Problems: (1) Altered mental status (2) Acute adjustment disorder (3) Anxiety disorder (4) Impulse control disorder (5) Dementia, vascular, with depression (6) Dementia, vascular, with delusions (7) Dementia in Alzheimer's disease with depression (8) Dementia in Alzheimer's disease with delusions BHAVNA CAMARA MD August 04, 2016 20:37
--- NOTE | 2016-08-04 22:05 | NUR ---
Behavior Intervention Response and Plan: BIRP Note: Behavior: Assumed Care of patient, patient located in Patient Room at shift change. Patient exhibited the following behavior Withdrawn, Somatic, Non-compliant. Brief assessment on rounds of vital signs, medication needs, lab studies, and pain. Treatment plan problems 1-2. Intervention: Patient assessed and the following interventions initiated safety checks 15 Minute Checks Cognitive Assessment , Head to toe Assessment , Medications. Response: After interactions and interventions patient responded in the following manner, Meds with coaxing, Resting. Continue to assess behaviors and condition will continue to monitor throughout the shift as needed. 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 Continue to assess patient for changes in above assessment. Monitor for medication needs, pain, and safety concerns. Hourly rounding performed to ensure safe environment.
--- NOTE | 2016-08-05 02:01 | PN ---
DATE: 08/03/2016 PSYCHIATRIC PROGRESS NOTE This is late entry of 08/03/2016, covers elements not covered in my initial note. OBJECTIVE: Temperature 97.6, BP 106/56, respirations 20, pulse 70. SUBJECTIVE: The patient has been in bed all day on 08/03/2016, up for lunch, arms crossed in front of her, paranoid, suspicious, refused oral intake, refused her medications. UA showed mixed long, will be repeated. Slept 4-3/4 hours previous night. REVIEW OF SYSTEMS: No CV, , pulmonary, eye, ENT system symptoms on review. Reliability poor. MENTAL STATUS EXAMINATION: Oriented to herself. Insight, judgment, recent and remote memory, attention, concentration, fund of knowledge poor, consistent with her diagnosis. IMPRESSION: Major neurocognitive disorder, Alzheimer, vascular with depression, delusion, behavioral disturbance. Rest unchanged. PLAN: Maintain Wellbutrin 150 b.i.d., reduce Celexa from 40 to 20 mg a day, continue Aricept 10 mg a day, Ativan p.r.n., melatonin p.r.n., repeat UA, start BuSpar 5 b.i.d., consider adding Remeron, but since she is oversleeping I would like to avoid this. BHAVNA CAMARA MD DR: RYLIE/zunilda JOB#: [id number] / [id number]
[2016-08-05] MEDS: LEVOTHYROXINE 88 MCG TABLET PO SCH ×2 (05:41→05:51)
--- NOTE | 2016-08-05 05:54 | NUR ---
Nursing: Offered PO fluids, pt declined to take a drink. Pt refused Synthroid this AM, after multiple attempts, swinging at this RN. Remains in bed with eyes closed and in position. Bed in lowest position with alarm set.
[2016-08-05 06:15] LABS: HEMATOCRIT 37.7 % (36.0-47.0); HEMOGLOBIN 12.4 g/dL (12.0-15.5); RED BLOOD COUNT 4.13 x10^6/uL (3.50-5.40); RED CELL DISTRIBUTION WIDTH 14.2 % (11.5-14.5); WHITE BLOOD COUNT 6.1 x10^3/uL (4.0-11.0)
[2016-08-05 06:23] LABS: ALBUMIN 2.7 g/dL (3.4-5.0); ALBUMIN/GLOBULIN RATIO 0.8 (1.0-1.7); CALCIUM 8.6 mg/dL (8.5-10.1); CREATININE 1.8 mg/dL (0.6-1.0); GFR 27.4; MAGNESIUM 1.8 mg/dL (1.8-2.4); POTASSIUM 3.8 mmol/L (3.5-5.1); TOTAL BILIRUBIN 0.6 mg/dL (0.2-1.0); TOTAL PROTEIN 6.3 g/dL (6.4-8.2)
[2016-08-05 06:25] VITALS: BP 122/77
[2016-08-05] MEDS: CARBIDOPA/LEVODOPA 25/100MG TABLET PO SCH ×3 (09:57→20:50)
[2016-08-05] MEDS: TRIAMTERENE/HCTZ 37.5/25MG TABLET. PO SCH (09:57)
[2016-08-05] MEDS: CITALOPRAM 20 MG TABLET. PO SCH (09:57)
[2016-08-05] MEDS: QUEtiapine 25 MG TABLET. PO SCH ×2 (09:57→20:50)
[2016-08-05] MEDS: FENOFIBRATE NANOCRYSTALLIZED 145 MG TABLET PO SCH (09:57)
[2016-08-05] MEDS: DONEPEZIL HCL 10 MG TABLET PO SCH (09:57)
[2016-08-05] MEDS: MEMANTINE 5 MG TABLET. PO SCH ×2 (09:57→20:50)
[2016-08-05] MEDS: ASPIRIN ENTERIC COATED 81 MG TABLET.DR. PO SCH (09:58)
[2016-08-05] MEDS: buPROPion SR 150 MG TABLET.SA PO SCH ×2 (09:58→20:50)
[2016-08-05] MEDS: busPIRone 5 MG TABLET. PO SCH ×2 (09:58→20:50)
[2016-08-05] MEDS: METOPROLOL SUCC 24HR ER 100 MG TAB.ER.24H. PO SCH (10:01)
[2016-08-05] MEDS: LORazepam 0.5 MG TABLET PO SCH ×2 (10:01→20:54)
[2016-08-05] MEDS: TIMOLOL 0.5% OPHTH SOLUTION 5ML BOTTLE. OU SCH ×2 (10:03→20:56)
--- NOTE | 2016-08-05 14:00 | NUR ---
Behavior Intervention Response and Plan: BIRP Note: Behavior: Assumed Care of patient, patient located in Patient Room at shift change. Patient exhibited the following behavior Calm, Disorganized, Compliant. Brief assessment on rounds of vital signs, medication needs, lab studies, and pain. Treatment plan problems. Intervention: Patient assessed and the following interventions initiated safety checks 15 Minute Checks Call rivera in reach , Medications , Head to toe Assessment. Response: After interactions and interventions patient responded in the following manner, Calm , Disorganized ,Compliant. Continue to assess behaviors and condition will continue to monitor throughout the shift as needed. Plan: Continue to monitor Master Treatment Plan for patient's progress toward short term goals of Decreased Agitation, Decreased Anxiety, custodial goals to return to previous living setting vs placement. Continue to assess patient for changes in above assessment. Monitor for medication needs, pain, and safety concerns. Hourly rounding performed to ensure safe environment.
--- NOTE | 2016-08-05 14:17 | NUR ---
SW tried to engage pt, however pt would not talk or interact with food writer.
[2016-08-05 15:54] VITALS: BP 128/55
[2016-08-05] MEDS: CYPROHEPTADINE 4 MG TABLET. PO SCH (20:54)
[2016-08-05] MEDS: LATANOPROST 0.005% OPHTH SOLUTION 2.5ML BOTTLE. OU SCH (20:56)
[2016-08-05] MEDS ORDERED: CYPROHEPTADINE 4 MG TABLET. PO PRN (21:00)
--- NOTE | 2016-08-05 21:12 | PDOC ---
Exam Benson Demential Exam: Benson Note: Please also refer to the separate dictated note~for this date of service dictated separately.~Patient seen individually. Discussed the patient with Nursing staff reviewed the chart.~Reviewed interim history and current functioning. Reviewed vital signs,~Labs/ Radiology~and current medications noted below. Continue current treatment with the changes noted in the dictated addendum note Assessment: Vital Signs: Vital Signs Date Time Temp Pulse Resp B/P Pulse Ox O2 Delivery O2 Flow Rate FiO2 08/05/16 15:54 97.2 20 20 128/55 96 08/01/16 15:34 Room Air I&O Intake and Output 08/05/16 07:00 Intake Total 200 ml Balance 200 ml Intake Oral 200 ml # Voids 1 Labs: Laboratory Tests Test 08/05/16 05:57 White Blood Count 6.1x10^3/uL (4.0-11.0) Red Blood Count 4.13x10^6/uL (3.50-5.40) Hemoglobin 12.4g/dL (12.0-15.5) Hematocrit 37.7% (36.0-47.0) Mean Corpuscular Volume 91fL (79-100) Mean Corpuscular Hemoglobin 30pg (25-35) Mean Corpuscular Hemoglobin Concent 33g/dL (31-37) Red Cell Distribution Width 14.2% (11.5-14.5) Platelet Count 303x10^3/uL (140-400) Sodium Level 141mmol/L (136-145) Potassium Level 3.8mmol/L (3.5-5.1) Chloride Level 104mmol/L (98-107) Carbon Dioxide Level 31mmol/L (21-32) Anion Gap 6 (6-14) Blood Urea Nitrogen 31mg/dL (7-20) H Creatinine 1.8mg/dL (0.6-1.0) H Estimated GFR (Cockcroft-Gault) 27.4 BUN/Creatinine Ratio 17 (6-20) Glucose Level 79mg/dL (70-99) Calcium Level 8.6mg/dL (8.5-10.1) Magnesium Level 1.8mg/dL (1.8-2.4) Total Bilirubin 0.6mg/dL (0.2-1.0) Aspartate Amino Transferase (AST) 81U/L (15-37) H Alanine Aminotransferase (ALT) 33U/L (14-59) Alkaline Phosphatase 37U/L (46-116) L Total Protein 6.3g/dL (6.4-8.2) L Albumin 2.7g/dL (3.4-5.0) L Albumin/Globulin Ratio 0.8 (1.0-1.7) L Current Medications: Meds: Current Medications Sodium Chloride (Iv Sodium Chloride 0.9% 1,000ml) 1,000 ml @ 100 mls/hr Q10H IV Last administered on 07/31/16 19:09; Start 07/31/16 at 19:09; Stop at 05:08; Status DC Sodium Chloride (Normal Saline Flush) 10 ml QSHIFT PRN IV AFTER MEDS AND BLOOD DRAWS Last administered on 07/31/16 20:05; Start 07/31/16 at 19:15 Acetaminophen (Tylenol) 650 mg PRN Q6HRS PRN PO PAIN / TEMP; Start 08/01/16 at 01:15 Multi-Ingredient Ointment (Analgesic [place]) 1 shadia PRN QID PRN TP MUSCLE PAIN; Start 08/01/16 at 01:15 Al Hydroxide/Mg Hydroxide (Mylanta Plus Xs) 15 ml PRN AFTMEALHC PRN PO DYSPEPSIA; Start 08/01/16 at 01:15 Magnesium Hydroxide (Milk Of Magnesia) 2,400 mg PRN QHS PRN PO CONSTIPATION; Start 08/01/16 at 01:15 Aspirin (Aspirin Enteric Coated) 81 mg DAILY PO Last administered on 08/05/16 09:58; Start 08/01/16 at 09:00 Carbidopa/Levodopa (Sinemet 25/100) 1 tab TID PO Last administered on 08/05/16 20:50; Start 08/01/16 at 09:00 Docusate Sodium (Colace) 100 mg PRN DAILY PRN PO CONSTIPATION; Start 08/01/16 at 01:15 Levothyroxine Sodium (Synthroid) 88 mcg DAILYAC PO Last administered on 07:30; Start 08/01/16 at 07:30; Stop 08/03/16 at 07:43; Status DC Metoprolol Succinate (Toprol Xl) 100 mg DAILY PO Last administered on 08/05/16 10:01; Start 08/01/16 at 09:00 Polyethylene Glycol (miraLAX) 17 gm PRN DAILY PRN PO CONSTIPATION; Start at 01:15 Timolol Maleate (Timoptic 0.5% Ophth) 1 drop BID OU Last administered on 20:56; Start 08/01/16 at 09:00 Fenofibrate (Tricor) 145 mg DAILY PO Last administered on 08/05/16 09:57; Start 08/01/16 at 09:00 Nifedipine (Procardia Xl) 60 mg DAILY PO Last administered on 08/05/16 09:59; Start 08/01/16 at 09:00 Latanoprost (Xalatan) 1 drop QHS OU Last administered on 08/05/16 20:56; Start 08/01/16 at 21:00 Triamterene/HCTZ (Maxzide 37.5/ 25mg) 1 tab DAILY PO Last administered on 09:57; Start 08/01/16 at 09:00 Bupropion HCl (Wellbutrin Sr) 150 mg BID PO Last administered on 08/05/16 20:50 ; Start 08/01/16 at 09:00 Donepezil HCl (Aricept) 10 mg DAILY PO Last administered on 08/05/16 09:57; Start 08/01/16 at 09:00 Lorazepam (Ativan) 0.5 mg BID PO Last administered on 08/05/16 10:01; Start at 09:00; Stop 08/05/16 at 19:21; Status DC Lorazepam (Ativan) 0.5 mg PRN Q6HRS PRN PO ANXIETY / AGITATION Last administered on 08/02/16 22:42; Start 08/01/16 at 01:15 Melatonin 3 mg PRN QHS PRN PO INSOMNIA Last administered on 08/04/16 20:10; Start 08/01/16 at 01:15 Citalopram Hydrobromide (Celexa) 40 mg DAILY PO Last administered on 08/02/16 09:39; Start 08/01/16 at 09:00; Stop 08/03/16 at 18:27; Status DC Levothyroxine Sodium (Synthroid) 88 mcg DAILY06 PO Last administered on 06:44; Start 08/04/16 at 06:00 Vitamin D (Vitamin D3) 50,000 unit WEEKLY PO ; Start 08/04/16 at 09:00 Citalopram Hydrobromide (Celexa) 20 mg DAILY PO Last administered on 08/05/16 09:57; Start 08/04/16 at 09:00 Buspirone HCl (Buspar) 5 mg BID PO Last administered on 08/05/16 20:50; Start 08/03/16 at 21:00 Memantine (Namenda) 5 mg BID PO Last administered on 08/05/16 20:50; Start 08/04 at 21:00 Quetiapine Fumarate (SEROquel) 12.5 mg BID PO Last administered on 08/05/16 20: 50; Start 08/04/16 at 21:00 Cyproheptadine HCl (Periactin) 2 mg PRN QHS PRN PO SUPPLEMENT; Start 08/05/16 at 21:00; Stop 08/05/16 at 21:00; Status DC Cyproheptadine HCl (Periactin) 2 mg HS PO Last administered on 08/05/16 20:54; Start 08/05/16 at 21:00 Lorazepam (Ativan) 0.25 mg BID PO Last administered on 08/05/16 20:54; Start at 21:00; Stop 08/07/16 at 20:59 Lorazepam (Ativan) 0.25 mg DAILY PO ; Start 08/08/16 at 09:00; Stop 08/09/16 at 21 :00 Active Scripts Active Reported Timolol Maleate 10 Ml Drops 1 Drop EACHEYE BID Docusate Sodium 100 Mg Capsule 100 Mg PO PRN DAILY PRN Melatonin 3 Mg Tablet 3 Mg PO PRN QHS PRN Lorazepam 0.5 Mg Tablet 0.5 Mg PO PRN Q6HRS PRN Travatan Z (Travoprost) 5 Ml Drops 1 Drop OU QHS Lorazepam 0.5 Mg Tablet 0.5 Mg PO BID Donepezil Hcl 10 Mg Tablet 10 Mg PO DAILY Sinemet 25-100 Mg Tablet (Carbidopa/Levodopa) 1 Each Tablet 1 Tab PO TID Aspirin Ec (Aspirin) 81 Mg Tablet.dr 81 Mg PO DAILY Miralax (Polyethylene Glycol 3350) 17 Gm Powd.pack 17 Gm PO PRN DAILY PRN Triamterene-Hctz 37.5-25 Mg Cp (Triamterene/Hydrochlorothiazid) 1 Each Capsule 1 Tab PO DAILY PRN Metoprolol Succinate ( Xl ) (Metoprolol Succinate) 100 Mg Tab.er.24h 100 Mg PO DAILY Bupropion Hcl Sr (Bupropion Hcl) 150 Mg Tablet.er 150 Mg PO BID Citalopram Hbr (Citalopram Hydrobromide) 40 Mg Tablet 40 Mg PO DAILY Fenofibrate 160 Mg Tablet 160 Mg PO DAILY Levothyroxine Sodium 88 Mcg Tablet 88 Mcg PO DAILYAC Nifedipine Er (Nifedipine) 60 Mg Tab.er.24 60 Mg PO DAILY Diagnosis: Problems: (1) Altered mental status (2) Acute adjustment disorder (3) Anxiety disorder (4) Impulse control disorder (5) Dementia, vascular, with depression (6) Dementia, vascular, with delusions (7) Dementia in Alzheimer's disease with depression (8) Dementia in Alzheimer's disease with delusions BHAVNA CAMARA MD August 05, 2016 21:12
--- NOTE | 2016-08-05 21:30 | NUR ---
Behavior Intervention Response and Plan: BIRP Note: Behavior: Assumed Care of patient, patient located in Patient Room at shift change. Patient exhibited the following behavior Wandering, Labile Mood alternating between calm and anxious , Disorganized. Brief assessment on rounds of vital signs, medication needs, lab studies, and pain. Treatment plan problems: Dementia with BD and Fall Risk . Intervention: Patient assessed and the following interventions initiated safety checks 15 Minute Checks Cognitive Assessment , Head to toe Assessment , Medications, Oral Hydration, Encouraged Nutrition. Response: After interactions and interventions patient responded in the following manner, Calm , Withdrawn ,Cooperative. Continue to assess behaviors and condition will continue to monitor throughout the shift as needed. Plan: Continue to monitor Master Treatment Plan for patient's progress toward short term goals of Decreased Anxiety, Medication Compliance, Improved Mood, terminologist goals to return to previous living setting vs placement. Continue to assess patient for changes in above assessment. Monitor for medication needs, pain, and safety concerns. Hourly rounding performed to ensure safe environment.
--- NOTE | 2016-08-06 03:40 | PN ---
DATE: 08/04/2016 This late entry for 08/04/2016 covers elements not covered in my initial note. SUBJECTIVE: Per nursing report, the patient has been combative, yelling, screaming, punching at staff, especially during showers. She refuses her medications, withdrawn at other times, irritable, labile, confused. REVIEW OF SYSTEMS: No CV, , pulmonary, eye, ENT system symptoms on review. Reliability poor. MENTAL STATUS EXAM: She sat on the chair, arms crossed across the chest as I met with her. Insight, judgment, recent and remote memory, attention, concentration, fund of knowledge poor, consistent with her diagnosis mentioned in my initial note. PLAN: Start Namenda 5 mg twice a day. Continue Wellbutrin 150 twice a day, start Seroquel 12.5 mg twice a day, Celexa we will continue 20 mg a day, Aricept 10 mg a day, Ativan 0.5 b.i.d. plus p.r.n., melatonin 3 mg at bedtime p.r.n. IMPRESSION: Major neurocognitive disorder, Lewy body, Alzheimer's, vascular with depression, delusion, behavioral disturbance; anxiety disorder, unspecified; impulse control disorder, unspecified. MAN Hannah CAMARA MD DR: RYLIE/zunilda JOB#: [id number] / [id number]
[2016-08-06] MEDS: LEVOTHYROXINE 88 MCG TABLET PO SCH (05:47)
--- NOTE | 2016-08-06 06:20 | NUR ---
Patient resistive with am Synthroid, but eventually able to take with clear, simple explanation re: medication indication and compliance. Attempted to encourage fluid intake with water this am and patient only agreeable to drink 120 ml of water with her medication. Nursing will continue to follow and encourage fluid and nutrition intake.
[2016-08-06 06:24] VITALS: BP 112/55
[2016-08-06] MEDS: buPROPion SR 150 MG TABLET.SA PO SCH ×2 (08:22→20:25)
[2016-08-06] MEDS: busPIRone 5 MG TABLET. PO SCH ×2 (08:22→20:25)
[2016-08-06] MEDS: MEMANTINE 5 MG TABLET. PO SCH ×2 (08:22→20:25)
[2016-08-06] MEDS: ASPIRIN ENTERIC COATED 81 MG TABLET.DR. PO SCH (08:23)
[2016-08-06] MEDS: CARBIDOPA/LEVODOPA 25/100MG TABLET PO SCH ×3 (08:23→20:25)
[2016-08-06] MEDS: CITALOPRAM 20 MG TABLET. PO SCH (08:23)
[2016-08-06] MEDS: FENOFIBRATE NANOCRYSTALLIZED 145 MG TABLET PO SCH (08:23)
[2016-08-06] MEDS: QUEtiapine 25 MG TABLET. PO SCH ×2 (08:26→20:26)
[2016-08-06] MEDS: DONEPEZIL HCL 10 MG TABLET PO SCH (08:27)
[2016-08-06] MEDS: LORazepam 0.5 MG TABLET PO SCH ×2 (08:43→20:24)
[2016-08-06] MEDS: TIMOLOL 0.5% OPHTH SOLUTION 5ML BOTTLE. OU SCH ×2 (09:00→20:27)
[2016-08-06] MEDS: TRIAMTERENE/HCTZ 37.5/25MG TABLET. PO SCH (09:30)
[2016-08-06] MEDS: METOPROLOL SUCC 24HR ER 100 MG TAB.ER.24H. PO SCH (09:33)
--- NOTE | 2016-08-06 10:00 | NUR ---
Behavior Intervention Response and Plan: BIRP Note: Behavior: Assumed Care of patient, patient located in Day Room at shift change. Patient exhibited the following behavior Disorganized, Compliant, Calm. Brief assessment on rounds of vital signs, medication needs, lab studies, and pain. Treatment plan problems . Intervention: Patient assessed and the following interventions initiated safety checks 15 Minute Checks Call rivera in reach , Medications , Nutrition. Response: After interactions and interventions patient responded in the following manner, Calm , Compliant ,Disorganized. Continue to assess behaviors and condition will continue to monitor throughout the shift as needed. Plan: Continue to monitor Master Treatment Plan for patient's progress toward short term goals of Decreased Agitation, Decreased Anxiety, skilled nursing goals to return to previous living setting vs placement. Continue to assess patient for changes in above assessment. Monitor for medication needs, pain, and safety concerns. Hourly rounding performed to ensure safe environment.
[2016-08-06 15:40] VITALS: BP 94/62
--- NOTE | 2016-08-06 17:16 | NUR ---
SW met with pt son while he was helping his mother eat, Pt son will participate by phone for treatment team.
--- NOTE | 2016-08-06 17:16 | NUR ---
Start Time: 13:40 End Time: 1420 Problem: Anxiety Purpose: Reduction of Agitation, Increase awareness, Express feelings Level of Participation: low Behaviors or Symptoms Observed: Pt sat with group and interacted with each other and SW regarding what makes them sad and what makes them happy. Interventions: Reinforcement Response: Pts told or wrote on rain drops what makes them sad/angry as well as how their body responds. Plan: Group Participation Additional Comments: Pt sat at table with the group.
[2016-08-06] MEDS: CYPROHEPTADINE 4 MG TABLET. PO SCH (20:25)
[2016-08-06] MEDS: MELATONIN 3 MG TABLET PO PRN (20:26)
[2016-08-06] MEDS: LATANOPROST 0.005% OPHTH SOLUTION 2.5ML BOTTLE. OU SCH (20:27)
--- NOTE | 2016-08-06 20:58 | PDOC ---
Exam Benson Demential Exam: Benson Note: Please also refer to the separate dictated note~for this date of service dictated separately.~Patient seen individually. Discussed the patient with Nursing staff reviewed the chart.~Reviewed interim history and current functioning. Reviewed vital signs,~Labs/ Radiology~and current medications noted below. Continue current treatment with the changes noted in the dictated addendum note Assessment: Vital Signs: Vital Signs Date Time Temp Pulse Resp B/P Pulse Ox O2 Delivery O2 Flow Rate FiO2 08/06/16 15:40 97.1 76 18 94/62 99 08/01/16 15:34 Room Air I&O Intake and Output 08/06/16 07:00 Intake Total 80 ml Balance 80 ml Intake Oral 80 ml # Voids 1 Current Medications: Meds: Current Medications Sodium Chloride (Iv Sodium Chloride 0.9% 1,000ml) 1,000 ml @ 100 mls/hr Q10H IV Last administered on 07/31/16 19:09; Start 07/31/16 at 19:09; Stop at 05:08; Status DC Sodium Chloride (Normal Saline Flush) 10 ml QSHIFT PRN IV AFTER MEDS AND BLOOD DRAWS Last administered on 07/31/16 20:05; Start 07/31/16 at 19:15 Acetaminophen (Tylenol) 650 mg PRN Q6HRS PRN PO PAIN / TEMP; Start 08/01/16 at 01:15 Multi-Ingredient Ointment (Analgesic [place]) 1 shadia PRN QID PRN TP MUSCLE PAIN; Start 08/01/16 at 01:15 Al Hydroxide/Mg Hydroxide (Mylanta Plus Xs) 15 ml PRN AFTMEALHC PRN PO DYSPEPSIA; Start 08/01/16 at 01:15 Magnesium Hydroxide (Milk Of Magnesia) 2,400 mg PRN QHS PRN PO CONSTIPATION; Start 08/01/16 at 01:15 Aspirin (Aspirin Enteric Coated) 81 mg DAILY PO Last administered on 08/06/16 08:23; Start 08/01/16 at 09:00 Carbidopa/Levodopa (Sinemet 25/100) 1 tab TID PO Last administered on 08/06/16 20:25; Start 08/01/16 at 09:00 Docusate Sodium (Colace) 100 mg PRN DAILY PRN PO CONSTIPATION; Start 08/01/16 at 01:15 Levothyroxine Sodium (Synthroid) 88 mcg DAILYAC PO Last administered on 07:30; Start 08/01/16 at 07:30; Stop 08/03/16 at 07:43; Status DC Metoprolol Succinate (Toprol Xl) 100 mg DAILY PO Last administered on 08/06/16 09:33; Start 08/01/16 at 09:00 Polyethylene Glycol (miraLAX) 17 gm PRN DAILY PRN PO CONSTIPATION; Start at 01:15 Timolol Maleate (Timoptic 0.5% [facility]) 1 drop BID OU Last administered on 20:27; Start 08/01/16 at 09:00 Fenofibrate (Tricor) 145 mg DAILY PO Last administered on 08/06/16 08:23; Start 08/01/16 at 09:00 Nifedipine (Procardia Xl) 60 mg DAILY PO Last administered on 08/06/16 09:32; Start 08/01/16 at 09:00 Latanoprost (Xalatan) 1 drop QHS OU Last administered on 08/06/16 20:27; Start 08/01/16 at 21:00 Triamterene/HCTZ (Maxzide 37.5/ 25mg) 1 tab DAILY PO Last administered on 09:30; Start 08/01/16 at 09:00 Bupropion HCl (Wellbutrin Sr) 150 mg BID PO Last administered on 08/06/16 20:25 ; Start 08/01/16 at 09:00 Donepezil HCl (Aricept) 10 mg DAILY PO Last administered on 08/06/16 08:27; Start 08/01/16 at 09:00 Lorazepam (Ativan) 0.5 mg BID PO Last administered on 08/05/16 10:01; Start at 09:00; Stop 08/05/16 at 19:21; Status DC Lorazepam (Ativan) 0.5 mg PRN Q6HRS PRN PO ANXIETY / AGITATION Last administered on 08/02/16 22:42; Start 08/01/16 at 01:15 Melatonin 3 mg PRN QHS PRN PO INSOMNIA Last administered on 08/06/16 20:26; Start 08/01/16 at 01:15 Citalopram Hydrobromide (Celexa) 40 mg DAILY PO Last administered on 08/02/16 09:39; Start 08/01/16 at 09:00; Stop 08/03/16 at 18:27; Status DC Levothyroxine Sodium (Synthroid) 88 mcg DAILY06 PO Last administered on 05:47; Start 08/04/16 at 06:00 Vitamin D (Vitamin D3) 50,000 unit WEEKLY PO ; Start 08/04/16 at 09:00 Citalopram Hydrobromide (Celexa) 20 mg DAILY PO Last administered on 08/06/16 08:23; Start 08/04/16 at 09:00 Buspirone HCl (Buspar) 5 mg BID PO Last administered on 08/06/16 20:25; Start 08/03/16 at 21:00 Memantine (Namenda) 5 mg BID PO Last administered on 08/06/16 20:25; Start 08/04 at 21:00 Quetiapine Fumarate (SEROquel) 12.5 mg BID PO Last administered on 08/06/16 20: 26; Start 08/04/16 at 21:00 Cyproheptadine HCl (Periactin) 2 mg PRN QHS PRN PO SUPPLEMENT; Start 08/05/16 at 21:00; Stop 08/05/16 at 21:00; Status DC Cyproheptadine HCl (Periactin) 2 mg HS PO Last administered on 08/06/16 20:25; Start 08/05/16 at 21:00 Lorazepam (Ativan) 0.25 mg BID PO Last administered on 08/06/16 20:24; Start at 21:00; Stop 08/07/16 at 20:59 Lorazepam (Ativan) 0.25 mg DAILY PO ; Start 08/08/16 at 09:00; Stop 08/09/16 at 21 :00 Active Scripts Active Reported Timolol Maleate 10 Ml Drops 1 Drop EACHEYE BID Docusate Sodium 100 Mg Capsule 100 Mg PO PRN DAILY PRN Melatonin 3 Mg Tablet 3 Mg PO PRN QHS PRN Lorazepam 0.5 Mg Tablet 0.5 Mg PO PRN Q6HRS PRN Travatan Z (Travoprost) 5 Ml Drops 1 Drop OU QHS Lorazepam 0.5 Mg Tablet 0.5 Mg PO BID Donepezil Hcl 10 Mg Tablet 10 Mg PO DAILY Sinemet 25-100 Mg Tablet (Carbidopa/Levodopa) 1 Each Tablet 1 Tab PO TID Aspirin Ec (Aspirin) 81 Mg Tablet.dr 81 Mg PO DAILY Miralax (Polyethylene Glycol 3350) 17 Gm Powd.pack 17 Gm PO PRN DAILY PRN Triamterene-Hctz 37.5-25 Mg Cp (Triamterene/Hydrochlorothiazid) 1 Each Capsule 1 Tab PO DAILY PRN Metoprolol Succinate ( Xl ) (Metoprolol Succinate) 100 Mg Tab.er.24h 100 Mg PO DAILY Bupropion Hcl Sr (Bupropion Hcl) 150 Mg Tablet.er 150 Mg PO BID Citalopram Hbr (Citalopram Hydrobromide) 40 Mg Tablet 40 Mg PO DAILY Fenofibrate 160 Mg Tablet 160 Mg PO DAILY Levothyroxine Sodium 88 Mcg Tablet 88 Mcg PO DAILYAC Nifedipine Er (Nifedipine) 60 Mg Tab.er.24 60 Mg PO DAILY Diagnosis: Problems: (1) Altered mental status (2) Acute adjustment disorder (3) Anxiety disorder (4) Impulse control disorder (5) Dementia, vascular, with depression (6) Dementia, vascular, with delusions (7) Dementia in Alzheimer's disease with depression (8) Dementia in Alzheimer's disease with delusions BHAVNA CAMARA MD August 06, 2016 20:58
--- NOTE | 2016-08-06 22:54 | NUR ---
Behavior Intervention Response and Plan: BIRP Note: Behavior: Assumed Care of patient, patient located in Day Room at shift change. Patient exhibited the following behavior Restless, Irritable, Disorganized. Brief assessment on rounds of vital signs, medication needs, lab studies, and pain. Treatment plan problems 1 and 2. Intervention: Patient assessed and the following interventions initiated safety checks 15 Minute Checks Cognitive Assessment , Head to toe Assessment , Medications. Response: After interactions and interventions patient responded in the following manner, Wandering , Calm ,Cooperative. Continue to assess behaviors and condition will continue to monitor throughout the shift as needed. Plan: Continue to monitor Master Treatment Plan for patient's progress toward short term goals of Medication Compliance, Decreased Agitation, retirement goals to return to previous living setting vs placement. Continue to assess patient for changes in above assessment. Monitor for medication needs, pain, and safety concerns. Hourly rounding performed to ensure safe environment.
--- NOTE | 2016-08-06 23:45 | NUR ---
Pt up OOB @this time having had emesis x1. Pt and linens changed, pt refused PRN Mylanta and layed down on the other bed in her room and closed her eyes. Will continue to monitor.
--- NOTE | 2016-08-07 02:34 | PN ---
DATE: 08/05/2016 PSYCHIATRIC PROGRESS NOTE This is a late entry for 08/05/2016, covers elements not covered in my initial note. SUBJECTIVE: Per nursing report, the patient took a.m. medications and noon medications, sits with her arms crossed across her chest, eyes closed and son says . She has been for some time. Appetite is poor. REVIEW OF SYSTEMS: I met with her in her room. No CV, , eye, ENT or pulmonary system symptoms on review. Reliability poor. MENTAL STATUS EXAM: Oriented to herself. Insight, judgment, recent and remote memory, attention, concentration, fund of knowledge poor, consistent with her diagnosis mentioned in my initial note. PLAN: Taper and stop the Ativan. Add Periactin 2 mg at bedtime. Maintain the rest of the psychotropics on my initial note. MAN Hannah CAMARA MD DR: RYLIE/zunilda JOB#: [id number] / [id number]
[2016-08-07] MEDS: LEVOTHYROXINE 88 MCG TABLET PO SCH (06:00)
--- NOTE | 2016-08-07 07:23 | NUR ---
Synthroid given from shift engineer, charted in had chart.
[2016-08-07 07:29] VITALS: BP 107/66
[2016-08-07] MEDS: buPROPion SR 150 MG TABLET.SA PO SCH ×2 (09:00→19:40)
[2016-08-07] MEDS: TIMOLOL 0.5% OPHTH SOLUTION 5ML BOTTLE. OU SCH ×2 (09:00→19:39)
[2016-08-07] MEDS: busPIRone 5 MG TABLET. PO SCH ×2 (09:00→19:37)
[2016-08-07] MEDS: MEMANTINE 5 MG TABLET. PO SCH ×2 (09:00→19:37)
[2016-08-07] MEDS: QUEtiapine 25 MG TABLET. PO SCH ×2 (09:00→19:38)
[2016-08-07] MEDS: ASPIRIN ENTERIC COATED 81 MG TABLET.DR. PO SCH (09:00)
[2016-08-07] MEDS: DONEPEZIL HCL 10 MG TABLET PO SCH (09:00)
[2016-08-07] MEDS: FENOFIBRATE NANOCRYSTALLIZED 145 MG TABLET PO SCH (09:00)
[2016-08-07] MEDS: LORazepam 0.5 MG TABLET PO SCH (09:00)
[2016-08-07] MEDS: METOPROLOL SUCC 24HR ER 100 MG TAB.ER.24H. PO SCH (09:00)
[2016-08-07] MEDS: CITALOPRAM 20 MG TABLET. PO SCH (09:00)
[2016-08-07] MEDS: TRIAMTERENE/HCTZ 37.5/25MG TABLET. PO SCH (09:00)
[2016-08-07] MEDS: CARBIDOPA/LEVODOPA 25/100MG TABLET PO SCH ×4 (09:00→19:37)
--- NOTE | 2016-08-07 10:05 | NUR ---
Behavior Intervention Response and Plan: BIRP Note: Behavior: Assumed Care of patient, patient located in Patient Room at shift change. Patient exhibited the following behavior Irritable, Compliant, Resistive. Brief assessment on rounds of vital signs, medication needs, lab studies, and pain. Treatment plan problems . Intervention: Patient assessed and the following interventions initiated safety checks 15 Minute Checks Cognitive Assessment , Head to toe Assessment , Medications. Response: After interactions and interventions patient responded in the following manner, Calm , Compliant ,Cooperative. Continue to assess behaviors and condition will continue to monitor throughout the shift as needed. Plan: Continue to monitor Master Treatment Plan for patient's progress toward short term goals of Medication Compliance, Improved Mood, assistant terminal manager goals to return to previous living setting vs placement. Continue to assess patient for changes in above assessment. Monitor for medication needs, pain, and safety concerns. Hourly rounding performed to ensure safe environment.
--- NOTE | 2016-08-07 10:59 | NUR ---
SW called and pt son was involved in treatment team, SW will follow up with son on Thursday.
[2016-08-07 13:52] VITALS: BP 72/45
--- NOTE | 2016-08-07 13:52 | NUR ---
Patient has scheduled BP medications which were given this AM. She has been refusing to eat/drink, and is withdrawn laying in bed sleeping most of the day. Nurse rechecked BP- 75/45, pulse 59, Dr. Joseph notified, will continue to monitor and attempt to push fluids.
[2016-08-07 15:49] VITALS: BP 107/63
[2016-08-07] MEDS: CYPROHEPTADINE 4 MG TABLET. PO SCH (19:36)
[2016-08-07] MEDS: LATANOPROST 0.005% OPHTH SOLUTION 2.5ML BOTTLE. OU SCH (19:38)
--- NOTE | 2016-08-07 20:18 | PDOC ---
Exam Benson Demential Exam: Benson Note: Please also refer to the separate dictated note~for this date of service dictated separately.~Patient seen individually. Discussed the patient with Nursing staff reviewed the chart.~Reviewed interim history and current functioning. Reviewed vital signs,~Labs/ Radiology~and current medications noted below. Continue current treatment with the changes noted in the dictated addendum note Assessment: Vital Signs: Vital Signs Date Time Temp Pulse Resp B/P (MAP) Pulse Ox O2 Delivery O2 Flow Rate FiO2 08/07/16 15:49 97.4 88 16 107/63 (78) 95 08/01/16 15:34 Room Air I&O Intake and Output 08/07/16 07:00 Intake Total 600 ml Balance 600 ml Intake Oral 600 ml # Voids 1 Current Medications: Meds: Current Medications Sodium Chloride 1,000 ml @ 100 mls/hr Q10H IV Last administered on 07/31/16 19:09; Start 07/31/16 at 19:09; Stop 08/01/16 at 05:08; Status DC Sodium Chloride (Normal Saline Flush) 10 ml QSHIFT PRN IV AFTER MEDS AND BLOOD DRAWS Last administered on 07/31/16 20:05; Start 07/31/16 at 19:15 Acetaminophen (Tylenol) 650 mg PRN Q6HRS PRN PO PAIN / TEMP; Start 08/01/16 at 01:15 Multi-Ingredient Ointment (Analgesic Victor) 1 shadia PRN QID PRN TP MUSCLE PAIN; Start 08/01/16 at 01:15 Al Hydroxide/Mg Hydroxide (Mylanta Plus Xs) 15 ml PRN AFTMEALHC PRN PO DYSPEPSIA; Start 08/01/16 at 01:15 Magnesium Hydroxide (Milk Of Magnesia) 2,400 mg PRN QHS PRN PO CONSTIPATION; Start 08/01/16 at 01:15 Aspirin (Aspirin Enteric Coated) 81 mg DAILY PO Last administered on 08/07/16 09:00; Start 08/01/16 at 09:00 Carbidopa/Levodopa (Sinemet 25/100) 1 tab TID PO Last administered on 08/07/16 19:37; Start 08/01/16 at 09:00 Docusate Sodium (Colace) 100 mg PRN DAILY PRN PO CONSTIPATION; Start 08/01/16 at 01:15 Levothyroxine Sodium (Synthroid) 88 mcg DAILYAC PO Last administered on 07:30; Start 08/01/16 at 07:30; Stop 08/03/16 at 07:43; Status DC Metoprolol Succinate (Toprol Xl) 100 mg DAILY PO Last administered on 08/07/16 09:00; Start 08/01/16 at 09:00 Polyethylene Glycol (miraLAX) 17 gm PRN DAILY PRN PO CONSTIPATION; Start at 01:15 Timolol Maleate (Timoptic 0.5% [facility]) 1 drop BID OU Last administered on 19:39; Start 08/01/16 at 09:00 Fenofibrate (Tricor) 145 mg DAILY PO Last administered on 08/07/16 09:00; Start 08/01/16 at 09:00 Nifedipine (Procardia Xl) 60 mg DAILY PO Last administered on 08/07/16 09:00; Start 08/01/16 at 09:00; Stop 08/07/16 at 14:03; Status DC Latanoprost (Xalatan) 1 drop QHS OU Last administered on 08/07/16 19:38; Start 08/01/16 at 21:00 Triamterene/HCTZ (Maxzide 37.5/ 25mg) 1 tab DAILY PO Last administered on 09:00; Start 08/01/16 at 09:00; Stop 08/07/16 at 14:03; Status DC Bupropion HCl (Wellbutrin Sr) 150 mg BID PO Last administered on 08/07/16 19:40 ; Start 08/01/16 at 09:00 Donepezil HCl (Aricept) 10 mg DAILY PO Last administered on 08/07/16 09:00; Start 08/01/16 at 09:00 Lorazepam (Ativan) 0.5 mg BID PO Last administered on 08/05/16 10:01; Start at 09:00; Stop 08/05/16 at 19:21; Status DC Lorazepam (Ativan) 0.5 mg PRN Q6HRS PRN PO ANXIETY / AGITATION Last administered on 08/02/16 22:42; Start 08/01/16 at 01:15 Melatonin 3 mg PRN QHS PRN PO INSOMNIA Last administered on 08/06/16 20:26; Start 08/01/16 at 01:15 Citalopram Hydrobromide (Celexa) 40 mg DAILY PO Last administered on 08/02/16 09:39; Start 08/01/16 at 09:00; Stop 08/03/16 at 18:27; Status DC Levothyroxine Sodium (Synthroid) 88 mcg DAILY06 PO Last administered on 05:47; Start 08/04/16 at 06:00 Vitamin D (Vitamin D3) 50,000 unit WEEKLY PO ; Start 08/04/16 at 09:00 Citalopram Hydrobromide (Celexa) 20 mg DAILY PO Last administered on 08/07/16 09:00; Start 08/04/16 at 09:00 Buspirone HCl (Buspar) 5 mg BID PO Last administered on 08/07/16 19:37; Start 08/03/16 at 21:00 Memantine (Namenda) 5 mg BID PO Last administered on 08/07/16 19:37; Start 08/04 at 21:00 Quetiapine Fumarate (SEROquel) 12.5 mg BID PO Last administered on 08/07/16 19: 38; Start 08/04/16 at 21:00 Cyproheptadine HCl (Periactin) 2 mg PRN QHS PRN PO SUPPLEMENT; Start 08/05/16 at 21:00; Stop 08/05/16 at 21:00; Status DC Cyproheptadine HCl (Periactin) 2 mg HS PO Last administered on 08/07/16 19:36; Start 08/05/16 at 21:00 Lorazepam (Ativan) 0.25 mg BID PO Last administered on 08/07/16 09:00; Start at 21:00; Stop 08/07/16 at 20:59 Lorazepam (Ativan) 0.25 mg DAILY PO ; Start 08/08/16 at 09:00; Stop 08/09/16 at 21 :00 Active Scripts Active Reported Timolol Maleate 10 Ml Drops 1 Drop EACHEYE BID Docusate Sodium 100 Mg Capsule 100 Mg PO PRN DAILY PRN Melatonin 3 Mg Tablet 3 Mg PO PRN QHS PRN Lorazepam 0.5 Mg Tablet 0.5 Mg PO PRN Q6HRS PRN Travatan Z (Travoprost) 5 Ml Drops 1 Drop OU QHS Lorazepam 0.5 Mg Tablet 0.5 Mg PO BID Donepezil Hcl 10 Mg Tablet 10 Mg PO DAILY Sinemet 25-100 Mg Tablet (Carbidopa/Levodopa) 1 Each Tablet 1 Tab PO TID Aspirin Ec (Aspirin) 81 Mg Tablet.dr 81 Mg PO DAILY Miralax (Polyethylene Glycol 3350) 17 Gm Powd.pack 17 Gm PO PRN DAILY PRN Triamterene-Hctz 37.5-25 Mg Cp (Triamterene/Hydrochlorothiazid) 1 Each Capsule 1 Tab PO DAILY PRN Metoprolol Succinate ( Xl ) (Metoprolol Succinate) 100 Mg Tab.er.24h 100 Mg PO DAILY Bupropion Hcl Sr (Bupropion Hcl) 150 Mg Tablet.er 150 Mg PO BID Citalopram Hbr (Citalopram Hydrobromide) 40 Mg Tablet 40 Mg PO DAILY Fenofibrate 160 Mg Tablet 160 Mg PO DAILY Levothyroxine Sodium 88 Mcg Tablet 88 Mcg PO DAILYAC Nifedipine Er (Nifedipine) 60 Mg Tab.er.24 60 Mg PO DAILY Diagnosis: Problems: (1) Altered mental status (2) Acute adjustment disorder (3) Anxiety disorder (4) Impulse control disorder (5) Dementia, vascular, with depression (6) Dementia, vascular, with delusions (7) Dementia in Alzheimer's disease with depression (8) Dementia in Alzheimer's disease with delusions BHAVNA CAMARA MD August 07, 2016 20:18
--- NOTE | 2016-08-07 21:30 | NUR ---
Behavior Intervention Response and Plan: BIRP Note: Behavior: Assumed Care of patient, patient located in Day Room at shift change. Patient exhibited the following behavior Paranoid, Disorganized, Delusions, Irritable, Resistive, combative at times with care/assessment. Brief assessment on rounds of vital signs, medication needs, lab studies, and pain. Treatment plan problems: Dementia with BD and Fall Risk. Intervention: Patient assessed and the following interventions initiated safety checks 15 Minute Checks Cognitive Assessment , Head to toe Assessment , Medications, Oral Hydration, Nutrition. Response: After interactions and interventions patient responded in the following manner, Cooperative , Anxious ,Wandering. Continue to assess behaviors and condition will continue to monitor throughout the shift as needed. Plan: Continue to monitor Master Treatment Plan for patient's progress toward short term goals of Decreased Anxiety, Decreased Agitation, Decreased Aggression, Improved Mood, Medication Compliance, alf goals to return to previous living setting vs placement. Continue to assess patient for changes in above assessment. Monitor for medication needs, pain, and safety concerns. Hourly rounding performed to ensure safe environment.
[2016-08-08] MEDS: LEVOTHYROXINE 88 MCG TABLET PO SCH (05:13)
[2016-08-08 06:31] VITALS: BP 117/75
[2016-08-08] MEDS: LORazepam 0.5 MG TABLET PO SCH (08:16)
[2016-08-08] MEDS: FENOFIBRATE NANOCRYSTALLIZED 145 MG TABLET PO SCH (08:17)
[2016-08-08] MEDS: MEMANTINE 5 MG TABLET. PO SCH ×2 (08:17→20:06)
[2016-08-08] MEDS: ASPIRIN ENTERIC COATED 81 MG TABLET.DR. PO SCH (08:17)
[2016-08-08] MEDS: busPIRone 5 MG TABLET. PO SCH ×2 (08:18→20:06)
[2016-08-08] MEDS: QUEtiapine 25 MG TABLET. PO SCH (08:18)
[2016-08-08] MEDS: buPROPion SR 150 MG TABLET.SA PO SCH ×2 (08:18→20:06)
[2016-08-08] MEDS: DONEPEZIL HCL 10 MG TABLET PO SCH (08:18)
[2016-08-08] MEDS: CITALOPRAM 20 MG TABLET. PO SCH (08:18)
[2016-08-08] MEDS: METOPROLOL SUCC 24HR ER 100 MG TAB.ER.24H. PO SCH (08:18)
[2016-08-08] MEDS: TIMOLOL 0.5% OPHTH SOLUTION 5ML BOTTLE. OU SCH ×2 (08:23→20:07)
--- NOTE | 2016-08-08 08:35 | NUR ---
pt sitting in hallway in chair with arms crossed. Refused to take am medications at this time, refusing to eat and drink. Swinging at nurse and stating "go away". Will reattempt at a later time.
--- NOTE | 2016-08-08 09:48 | NUR ---
Behavior Intervention Response and Plan: BIRP Note: Behavior: Assumed Care of patient, patient located in Hallway at shift change. Patient exhibited the following behavior Calm, Withdrawn, Drowsy. Brief assessment on rounds of vital signs, medication needs, lab studies, and pain. Treatment plan problems 1 and 2. Intervention: Patient assessed and the following interventions initiated safety checks 15 Minute Checks Cognitive Assessment , Medications , Oral Hydration. Response: After interactions and interventions patient responded in the following manner, Disorganized , Sleeping ,Non Compliant. Continue to assess behaviors and condition will continue to monitor throughout the shift as needed. Plan: Continue to monitor Master Treatment Plan for patient's progress toward short term goals of Decreased Agitation, Decreased Aggression, intermediate accountant goals to return to previous living setting vs placement. Continue to assess patient for changes in above assessment. Monitor for medication needs, pain, and safety concerns. Hourly rounding performed to ensure safe environment.
--- NOTE | 2016-08-08 10:00 | NUR ---
patient resistive yet compliant with medications given a few at a time.
[2016-08-08] MEDS: CARBIDOPA/LEVODOPA 25/100MG TABLET PO SCH ×2 (14:11→20:06)
[2016-08-08 15:46] VITALS: BP 97/45
--- NOTE | 2016-08-08 16:02 | NUR ---
CYNTHIA provided update to Nahed at pt placement (Morning side)
--- NOTE | 2016-08-08 18:17 | NUR ---
Pt has been sleeping most of the day and has had no urinary output to this point today. Dr. Laguna aware. Ordered CBC/CMP for tonight and DC seroquel.
[2016-08-08 19:12] LABS: ALBUMIN 2.8 g/dL (3.4-5.0); ALBUMIN/GLOBULIN RATIO 0.8 (1.0-1.7); CALCIUM 9.4 mg/dL (8.5-10.1); CREATININE 2.3 mg/dL (0.6-1.0); GFR 20.7; POTASSIUM 5.4 mmol/L (3.5-5.1); TOTAL BILIRUBIN 0.6 mg/dL (0.2-1.0); TOTAL PROTEIN 6.5 g/dL (6.4-8.2)
[2016-08-08 19:25] LABS: BASO % 0 % (0-3); EOS # 0.1 x10^3/uL (0.0-0.7); EOS % 2 % (0-3); HEMATOCRIT 38.7 % (36.0-47.0); HEMOGLOBIN 12.5 g/dL (12.0-15.5); LYMPH # 2.3 x10^3/uL (1.0-4.8); LYMPH % 37 % (24-48); MEAN CORPUSCULAR HEMOGLOBIN 30 pg (25-35); MEAN CORPUSCULAR HGB CONC 32 g/dL (31-37); MEAN CORPUSCULAR VOLUME 92 fL (79-100); MONO # 1.1 x10^3/uL (0.0-1.1); MONO % 17 % (0-9); NEUT # 2.7 x10^3uL (1.8-7.7); NEUT % 44 % (31-73); PLATELET COUNT 280 x10^3/uL (140-400); RED CELL DISTRIBUTION WIDTH 14.6 % (11.5-14.5); WHITE BLOOD COUNT 6.2 x10^3/uL (4.0-11.0)
[2016-08-08] MEDS: CYPROHEPTADINE 4 MG TABLET. PO SCH (20:06)
[2016-08-08] MEDS: LATANOPROST 0.005% OPHTH SOLUTION 2.5ML BOTTLE. OU SCH (20:06)
--- NOTE | 2016-08-08 20:08 | PDOC ---
Exam Benson Demential Exam: Benson Note: Please also refer to the separate dictated note~for this date of service dictated separately.~Patient seen individually. Discussed the patient with Nursing staff reviewed the chart.~Reviewed interim history and current functioning. Reviewed vital signs,~Labs/ Radiology~and current medications noted below. Continue current treatment with the changes noted in the dictated addendum note Assessment: Vital Signs: Vital Signs Date Time Temp Pulse Resp B/P (MAP) Pulse Ox O2 Delivery O2 Flow Rate FiO2 08/08/16 15:46 96.7 69 18 97/45 (62) 100 I&O Intake and Output 08/08/16 07:00 Intake Total 600 ml Balance 600 ml Intake Oral 600 ml # Voids 1 Labs: Laboratory Tests Test 08/08/16 18:35 White Blood Count 6.2 x10^3/uL (4.0-11.0) Red Blood Count 4.20 x10^6/uL (3.50-5.40) Hemoglobin 12.5 g/dL (12.0-15.5) Hematocrit 38.7 % (36.0-47.0) Mean Corpuscular Volume 92 fL (79-100) Mean Corpuscular Hemoglobin 30 pg (25-35) Mean Corpuscular Hemoglobin Concent 32 g/dL (31-37) Red Cell Distribution Width 14.6 % (11.5-14.5) H Platelet Count 280 x10^3/uL (140-400) Neutrophils (%) (Auto) 44 % (31-73) Lymphocytes (%) (Auto) 37 % (24-48) Monocytes (%) (Auto) 17 % (0-9) H Eosinophils (%) (Auto) 2 % (0-3) Basophils (%) (Auto) 0 % (0-3) Neutrophils # (Auto) 2.7 x10^3uL (1.8-7.7) Lymphocytes # (Auto) 2.3 x10^3/uL (1.0-4.8) Monocytes # (Auto) 1.1 x10^3/uL (0.0-1.1) Eosinophils # (Auto) 0.1 x10^3/uL (0.0-0.7) Basophils # (Auto) 0.0 x10^3/uL (0.0-0.2) Sodium Level 143 mmol/L (136-145) Potassium Level 5.4 mmol/L (3.5-5.1) H Chloride Level 105 mmol/L (98-107) Carbon Dioxide Level 34 mmol/L (21-32) H Anion Gap 4 (6-14) L Blood Urea Nitrogen 45 mg/dL (7-20) H Creatinine 2.3 mg/dL (0.6-1.0) H Estimated GFR (Cockcroft-Gault) 20.7 BUN/Creatinine Ratio 20 (6-20) Glucose Level 80 mg/dL (70-99) Calcium Level 9.4 mg/dL (8.5-10.1) Total Bilirubin 0.6 mg/dL (0.2-1.0) Aspartate Amino Transferase (AST) 77 U/L (15-37) H Alanine Aminotransferase (ALT) 50 U/L (14-59) Alkaline Phosphatase 40 U/L (46-116) L Total Protein 6.5 g/dL (6.4-8.2) Albumin 2.8 g/dL (3.4-5.0) L Albumin/Globulin Ratio 0.8 (1.0-1.7) L Current Medications: Meds: Current Medications Sodium Chloride 1,000 ml @ 100 mls/hr Q10H IV Last administered on 07/31/16 19:09; Start 07/31/16 at 19:09; Stop 08/01/16 at 05:08; Status DC Sodium Chloride (Normal Saline Flush) 10 ml QSHIFT PRN IV AFTER MEDS AND BLOOD DRAWS Last administered on 07/31/16 20:05; Start 07/31/16 at 19:15 Acetaminophen (Tylenol) 650 mg PRN Q6HRS PRN PO PAIN / TEMP; Start 08/01/16 at 01:15 Multi-Ingredient Ointment (Analgesic Ledger) 1 shadia PRN QID PRN TP MUSCLE PAIN; Start 08/01/16 at 01:15 Al Hydroxide/Mg Hydroxide (Mylanta Plus Xs) 15 ml PRN AFTMEALHC PRN PO DYSPEPSIA; Start 08/01/16 at 01:15 Magnesium Hydroxide (Milk Of Magnesia) 2,400 mg PRN QHS PRN PO CONSTIPATION; Start 08/01/16 at 01:15 Aspirin (Aspirin Enteric Coated) 81 mg DAILY PO Last administered on 08/08/16 08:17; Start 08/01/16 at 09:00 Carbidopa/Levodopa (Sinemet 25/100) 1 tab TID PO Last administered on 08/08/16 20:06; Start 08/01/16 at 09:00 Docusate Sodium (Colace) 100 mg PRN DAILY PRN PO CONSTIPATION Last administered on 08/08/16 08:17; Start 08/01/16 at 01:15 Levothyroxine Sodium (Synthroid) 88 mcg DAILYAC PO Last administered on 07:30; Start 08/01/16 at 07:30; Stop 08/03/16 at 07:43; Status DC Metoprolol Succinate (Toprol Xl) 100 mg DAILY PO Last administered on 08/08/16 08:18; Start 08/01/16 at 09:00 Polyethylene Glycol (miraLAX) 17 gm PRN DAILY PRN PO CONSTIPATION; Start at 01:15 Timolol Maleate (Timoptic 0.5% [facility]) 1 drop BID OU Last administered on 20:07; Start 08/01/16 at 09:00 Fenofibrate (Tricor) 145 mg DAILY PO Last administered on 08/08/16 08:17; Start 08/01/16 at 09:00 Nifedipine (Procardia Xl) 60 mg DAILY PO Last administered on 08/07/16 09:00; Start 08/01/16 at 09:00; Stop 08/07/16 at 14:03; Status DC Latanoprost (Xalatan) 1 drop QHS OU Last administered on 08/08/16 20:06; Start 08/01/16 at 21:00 Triamterene/HCTZ (Maxzide 37.5/ 25mg) 1 tab DAILY PO Last administered on 09:00; Start 08/01/16 at 09:00; Stop 08/07/16 at 14:03; Status DC Bupropion HCl (Wellbutrin Sr) 150 mg BID PO Last administered on 08/08/16 20:06 ; Start 08/01/16 at 09:00 Donepezil HCl (Aricept) 10 mg DAILY PO Last administered on 08/08/16 08:18; Start 08/01/16 at 09:00 Lorazepam (Ativan) 0.5 mg BID PO Last administered on 08/05/16 10:01; Start at 09:00; Stop 08/05/16 at 19:21; Status DC Lorazepam (Ativan) 0.5 mg PRN Q6HRS PRN PO ANXIETY / AGITATION Last administered on 08/02/16 22:42; Start 08/01/16 at 01:15 Melatonin 3 mg PRN QHS PRN PO INSOMNIA Last administered on 08/06/16 20:26; Start 08/01/16 at 01:15 Citalopram Hydrobromide (Celexa) 40 mg DAILY PO Last administered on 08/02/16 09:39; Start 08/01/16 at 09:00; Stop 08/03/16 at 18:27; Status DC Levothyroxine Sodium (Synthroid) 88 mcg DAILY06 PO Last administered on 05:13; Start 08/04/16 at 06:00 Vitamin D (Vitamin D3) 50,000 unit WEEKLY PO ; Start 08/04/16 at 09:00 Citalopram Hydrobromide (Celexa) 20 mg DAILY PO Last administered on 08/08/16 08:18; Start 08/04/16 at 09:00 Buspirone HCl (Buspar) 5 mg BID PO Last administered on 08/08/16 20:06; Start 08/03/16 at 21:00 Memantine (Namenda) 5 mg BID PO Last administered on 08/08/16 20:06; Start 08/04 at 21:00 Quetiapine Fumarate (SEROquel) 12.5 mg BID PO Last administered on 08/08/16 08: 18; Start 08/04/16 at 21:00; Stop 08/08/16 at 18:15; Status DC Cyproheptadine HCl (Periactin) 2 mg PRN QHS PRN PO SUPPLEMENT; Start 08/05/16 at 21:00; Stop 08/05/16 at 21:00; Status DC Cyproheptadine HCl (Periactin) 2 mg HS PO Last administered on 08/08/16 20:06; Start 08/05/16 at 21:00 Lorazepam (Ativan) 0.25 mg BID PO Last administered on 08/07/16 09:00; Start at 21:00; Stop 08/07/16 at 20:59; Status DC Lorazepam (Ativan) 0.25 mg DAILY PO Last administered on 08/08/16 08:16; Start 08/08/16 at 09:00; Stop 08/09/16 at 21:00 Active Scripts Active Reported Timolol Maleate 10 Ml Drops 1 Drop EACHEYE BID Docusate Sodium 100 Mg Capsule 100 Mg PO PRN DAILY PRN Melatonin 3 Mg Tablet 3 Mg PO PRN QHS PRN Lorazepam 0.5 Mg Tablet 0.5 Mg PO PRN Q6HRS PRN Travatan Z (Travoprost) 5 Ml Drops 1 Drop OU QHS Lorazepam 0.5 Mg Tablet 0.5 Mg PO BID Donepezil Hcl 10 Mg Tablet 10 Mg PO DAILY Sinemet 25-100 Mg Tablet (Carbidopa/Levodopa) 1 Each Tablet 1 Tab PO TID Aspirin Ec (Aspirin) 81 Mg Tablet.dr 81 Mg PO DAILY Miralax (Polyethylene Glycol 3350) 17 Gm Powd.pack 17 Gm PO PRN DAILY PRN Triamterene-Hctz 37.5-25 Mg Cp (Triamterene/Hydrochlorothiazid) 1 Each Capsule 1 Tab PO DAILY PRN Metoprolol Succinate ( Xl ) (Metoprolol Succinate) 100 Mg Tab.er.24h 100 Mg PO DAILY Bupropion Hcl Sr (Bupropion Hcl) 150 Mg Tablet.er 150 Mg PO BID Citalopram Hbr (Citalopram Hydrobromide) 40 Mg Tablet 40 Mg PO DAILY Fenofibrate 160 Mg Tablet 160 Mg PO DAILY Levothyroxine Sodium 88 Mcg Tablet 88 Mcg PO DAILYAC Nifedipine Er (Nifedipine) 60 Mg Tab.er.24 60 Mg PO DAILY Diagnosis: Problems: (1) Altered mental status (2) Acute adjustment disorder (3) Anxiety disorder (4) Impulse control disorder (5) Dementia, vascular, with depression (6) Dementia, vascular, with delusions (7) Dementia in Alzheimer's disease with depression (8) Dementia in Alzheimer's disease with delusions BHAVNA CAMARA MD August 08, 2016 20:08
--- NOTE | 2016-08-08 23:14 | NUR ---
Behavior Intervention Response and Plan: BIRP Note: Behavior: Assumed Care of patient, patient located in Patient Room at shift change. Patient exhibited the following behavior Calm, Compliant, Drowsy. Brief assessment on rounds of vital signs, medication needs, lab studies, and pain. Treatment plan problems Dementia with BD and Fall Risk. Intervention: Patient assessed and the following interventions initiated safety checks 15 Minute Checks Cognitive Assessment , Head to toe Assessment , Medications. Response: After interactions and interventions patient responded in the following manner, Calm , Cooperative ,Drowsy. Continue to assess behaviors and condition will continue to monitor throughout the shift as needed. Plan: Continue to monitor Master Treatment Plan for patient's progress toward short term goals of Decreased Agitation, Decreased Aggression, technician terminal and repeater goals to return to previous living setting vs placement. Continue to assess patient for changes in above assessment. Monitor for medication needs, pain, and safety concerns. Hourly rounding performed to ensure safe environment.
--- NOTE | 2016-08-09 02:06 | PN ---
DATE: 08/07/2016 PSYCHIATRIC PROGRESS NOTE This is a late entry for 08/07/2016, covers elements not covered in my initial note. SUBJECTIVE: The patient was staffed at a treatment team meeting with the entire team and patient's son Bird attended this lengthy conference. Reviewed the patient's history, diagnosis, and prognosis. Reportedly, the patient was hallucinating the previous evening, remains withdrawn, resistive to medications, talking to a small child when no one was there and this happened as the son visited her the previous evening. She reportedly used the [employer] as a telephone. REVIEW OF SYSTEMS: No CV, , eye, ENT or pulmonary system symptoms on review. Reliability poor. MENTAL STATUS EXAM: Oriented to herself. Insight, judgment, recent and remote memory, attention, concentration, fund of knowledge poor, consistent with her diagnosis. LABORATORY DATA: Reviewed. IMPRESSION: Unchanged from initial note. PLAN: Continue Wellbutrin, Celexa, and Aricept. Ativan has been tapered. Continue Ativan p.r.n., melatonin, Namenda, Seroquel, BuSpar, and Periactin. Adjust further as clinically indicated. MAN Hannah CAMARA MD DR: RYLIE/zunilda JOB#: [id number] / [id number]
--- NOTE | 2016-08-09 02:16 | PN ---
DATE: 08/06/2016 PSYCHIATRIC PROGRESS NOTE This is a late entry of 08/06/2016, covers elements not covered in my initial note. SUBJECTIVE: Overall, the patient refuses to eat. She did drink some boost, and son brought in some fast food for her, which she did eat intermittently. She remains withdrawn, confused, often sitting with her eyes closed. REVIEW OF SYSTEMS: No CV, , eye, ENT or pulmonary system symptoms on review. Reliability poor. MENTAL STATUS EXAM: Oriented to herself. Insight, judgment, recent and remote memory, attention, concentration, fund of knowledge poor, consistent with her diagnosis. This note covers elements not covered in my initial note. IMPRESSION: Major neurocognitive disorder, Alzheimer, vascular with depression, delusion and behavioral disturbance. Rest diagnoses unchanged. PLAN: Continue psychotropics mentioned in my initial note. Adjust further as clinically indicated. MAN Hannah CAMARA MD DR: RYLIE/zunilda JOB#: [id number] / [id number]
[2016-08-09 06:31] VITALS: BP 103/57
[2016-08-09] MEDS ORDERED: IV DEXTROSE 5 %-0.45 % NACL 1,000 ML IV SCH (08:15)
[2016-08-09] MEDS ORDERED: IV DEXTROSE 5 %-0.45 % NACL 500 ML IV ONE (08:15)
[2016-08-09] MEDS: CITALOPRAM 20 MG TABLET. PO SCH ×2 (09:00→12:45)
[2016-08-09] MEDS: ASPIRIN ENTERIC COATED 81 MG TABLET.DR. PO SCH ×2 (09:00→12:45)
[2016-08-09] MEDS: busPIRone 5 MG TABLET. PO SCH ×4 (09:00→21:32)
[2016-08-09] MEDS: CARBIDOPA/LEVODOPA 25/100MG TABLET PO SCH ×5 (09:00→21:31)
[2016-08-09] MEDS: DONEPEZIL HCL 10 MG TABLET PO SCH ×2 (09:00→12:45)
[2016-08-09] MEDS: MEMANTINE 5 MG TABLET. PO SCH ×4 (09:00→21:31)
[2016-08-09] MEDS: LORazepam 0.5 MG TABLET PO SCH (09:00)
[2016-08-09] MEDS: FENOFIBRATE NANOCRYSTALLIZED 145 MG TABLET PO SCH ×2 (09:00→12:45)
[2016-08-09] MEDS: buPROPion SR 150 MG TABLET.SA PO SCH ×4 (09:00→21:31)
[2016-08-09] MEDS: METOPROLOL SUCC 24HR ER 50 MG TAB.ER.24H. PO SCH (09:00)
[2016-08-09] MEDS: LEVOTHYROXINE 88 MCG TABLET PO SCH (09:00)
[2016-08-09] MEDS: TIMOLOL 0.5% OPHTH SOLUTION 5ML BOTTLE. OU SCH ×3 (09:00→21:00)
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
--- NOTE | 2016-08-09 11:00 | NUR ---
Behavior Intervention Response and Plan: BIRP Note: Behavior: Assumed Care of patient, patient located in Patient Room at shift change. Patient exhibited the following behavior refusing medications, hitting and slapping, refusing assessment, confused, suspicious. Brief assessment on rounds of vital signs, medication needs, lab studies, and pain. Treatment plan problems Dementia with BD and Fall Risk. Intervention: Patient assessed and the following interventions initiated safety checks 15 Minute Checks Cognitive Assessment , Head to toe Assessment , Medications. Response: After interactions and interventions patient responded in the following manner, wandering, confused, difficult to redirect. Continue to assess behaviors and condition will continue to monitor throughout the shift as needed. Plan: Continue to monitor Master Treatment Plan for patient's progress toward short term goals of Decreased Agitation, Decreased Aggression, chcf goals to return to previous living setting vs placement. Continue to assess patient for changes in above assessment. Monitor for medication needs, pain, and safety concerns. Hourly rounding performed to ensure safe environment.
--- NOTE | 2016-08-09 13:23 | NUR ---
Son and ex daughter in law here for lunch. Pt took all am medication for son and drank 1 and a half ensures, a medium diet coke from [employer] and a hamburger from [employer].
--- NOTE | 2016-08-09 16:05 | NUR ---
Pt had about 300cc of emesis and 1 liquid stool. Pt taken to shower. VS 123/80, 84, 20, 97.2, 97%
[2016-08-09 16:08] VITALS: BP 123/80
[2016-08-09 16:17] LABS: CALCIUM 9.5 mg/dL (8.5-10.1); CREATININE 2.4 mg/dL (0.6-1.0); GFR 19.7
--- NOTE | 2016-08-09 16:59 | NUR ---
Dr. Joseph spoke with son, son does not want to pursue IV fluid at this time. Son is going to look into hospice and keep staff updated into thursday.
--- NOTE | 2016-08-09 19:05 | PDOC ---
Exam Benson Demential Exam: Benson Note: Please also refer to the separate dictated note~for this date of service dictated separately.~Patient seen individually. Discussed the patient with Nursing staff reviewed the chart.~Reviewed interim history and current functioning. Reviewed vital signs,~Labs/ Radiology~and current medications noted below. Continue current treatment with the changes noted in the dictated addendum note Assessment: Vital Signs: Vital Signs Date Time Temp Pulse Resp B/P (MAP) Pulse Ox O2 Delivery O2 Flow Rate FiO2 08/09/16 16:08 97.2 84 20 123/80 (94) 97 I&O Intake and Output 08/09/16 07:00 Intake Total 120 ml Balance 120 ml Intake Oral 120 ml # Voids 1 Labs: Laboratory Tests Test 08/09/16 16:00 Sodium Level 142 mmol/L (136-145) Potassium Level 4.0 mmol/L (3.5-5.1) Chloride Level 102 mmol/L (98-107) Carbon Dioxide Level 28 mmol/L (21-32) Anion Gap 12 (6-14) Blood Urea Nitrogen 47 mg/dL (7-20) H Creatinine 2.4 mg/dL (0.6-1.0) H Estimated GFR (Cockcroft-Gault) 19.7 Glucose Level 92 mg/dL (70-99) Calcium Level 9.5 mg/dL (8.5-10.1) Magnesium Level 2.0 mg/dL (1.8-2.4) Current Medications: Meds: Current Medications Sodium Chloride 1,000 ml @ 100 mls/hr Q10H IV Last administered on 07/31/16 19:09; Start 07/31/16 at 19:09; Stop 08/01/16 at 05:08; Status DC Sodium Chloride (Normal Saline Flush) 10 ml QSHIFT PRN IV AFTER MEDS AND BLOOD DRAWS Last administered on 07/31/16 20:05; Start 07/31/16 at 19:15 Acetaminophen (Tylenol) 650 mg PRN Q6HRS PRN PO PAIN / TEMP; Start 08/01/16 at 01:15 Multi-Ingredient Ointment (Analgesic [place]) 1 shadia PRN QID PRN TP MUSCLE PAIN; Start 08/01/16 at 01:15 Al Hydroxide/Mg Hydroxide (Mylanta Plus Xs) 15 ml PRN AFTMEALHC PRN PO DYSPEPSIA; Start 08/01/16 at 01:15 Magnesium Hydroxide (Milk Of Magnesia) 2,400 mg PRN QHS PRN PO CONSTIPATION; Start 08/01/16 at 01:15 Aspirin (Aspirin Enteric Coated) 81 mg DAILY PO Last administered on 08/09/16 12:45; Start 08/01/16 at 09:00 Carbidopa/Levodopa (Sinemet 25/100) 1 tab TID PO Last administered on 08/09/16 12:45; Start 08/01/16 at 09:00 Docusate Sodium (Colace) 100 mg PRN DAILY PRN PO CONSTIPATION Last administered on 08/08/16 08:17; Start 08/01/16 at 01:15 Levothyroxine Sodium (Synthroid) 88 mcg DAILYAC PO Last administered on 07:30; Start 08/01/16 at 07:30; Stop 08/03/16 at 07:43; Status DC Metoprolol Succinate (Toprol Xl) 100 mg DAILY PO Last administered on 08/08/16 08:18; Start 08/01/16 at 09:00; Stop 08/09/16 at 08:05; Status DC Polyethylene Glycol (miraLAX) 17 gm PRN DAILY PRN PO CONSTIPATION; Start at 01:15 Timolol Maleate (Timoptic 0.5% [facility]) 1 drop BID OU Last administered on 12:44; Start 08/01/16 at 09:00 Fenofibrate (Tricor) 145 mg DAILY PO Last administered on 08/09/16 12:45; Start 08/01/16 at 09:00 Nifedipine (Procardia Xl) 60 mg DAILY PO Last administered on 08/07/16 09:00; Start 08/01/16 at 09:00; Stop 08/07/16 at 14:03; Status DC Latanoprost (Xalatan) 1 drop QHS OU Last administered on 08/08/16 20:06; Start 08/01/16 at 21:00 Triamterene/HCTZ (Maxzide 37.5/ 25mg) 1 tab DAILY PO Last administered on 09:00; Start 08/01/16 at 09:00; Stop 08/07/16 at 14:03; Status DC Bupropion HCl (Wellbutrin Sr) 150 mg BID PO Last administered on 08/09/16 12:45 ; Start 08/01/16 at 09:00 Donepezil HCl (Aricept) 10 mg DAILY PO Last administered on 08/09/16 12:45; Start 08/01/16 at 09:00 Lorazepam (Ativan) 0.5 mg BID PO Last administered on 08/05/16 10:01; Start at 09:00; Stop 08/05/16 at 19:21; Status DC Lorazepam (Ativan) 0.5 mg PRN Q6HRS PRN PO ANXIETY / AGITATION Last administered on 08/02/16 22:42; Start 08/01/16 at 01:15 Melatonin 3 mg PRN QHS PRN PO INSOMNIA Last administered on 08/06/16 20:26; Start 08/01/16 at 01:15 Citalopram Hydrobromide (Celexa) 40 mg DAILY PO Last administered on 08/02/16 09:39; Start 08/01/16 at 09:00; Stop 08/03/16 at 18:27; Status DC Levothyroxine Sodium (Synthroid) 88 mcg DAILY06 PO Last administered on 05:13; Start 08/04/16 at 06:00 Vitamin D (Vitamin D3) 50,000 unit WEEKLY PO ; Start 08/04/16 at 09:00 Citalopram Hydrobromide (Celexa) 20 mg DAILY PO Last administered on 08/09/16 12:45; Start 08/04/16 at 09:00 Buspirone HCl (Buspar) 5 mg BID PO Last administered on 08/09/16 12:45; Start 08/03/16 at 21:00 Memantine (Namenda) 5 mg BID PO Last administered on 08/09/16 12:45; Start 08/04 at 21:00 Quetiapine Fumarate (SEROquel) 12.5 mg BID PO Last administered on 08/08/16 08: 18; Start 08/04/16 at 21:00; Stop 08/08/16 at 18:15; Status DC Cyproheptadine HCl (Periactin) 2 mg PRN QHS PRN PO SUPPLEMENT; Start 08/05/16 at 21:00; Stop 08/05/16 at 21:00; Status DC Cyproheptadine HCl (Periactin) 2 mg HS PO Last administered on 08/08/16 20:06; Start 08/05/16 at 21:00 Lorazepam (Ativan) 0.25 mg BID PO Last administered on 08/07/16 09:00; Start at 21:00; Stop 08/07/16 at 20:59; Status DC Lorazepam (Ativan) 0.25 mg DAILY PO Last administered on 08/08/16 08:16; Start 08/08/16 at 09:00; Stop 08/09/16 at 21:00 Metoprolol Succinate (Toprol Xl) 50 mg DAILY PO ; Start 08/09/16 at 09:00 Dextrose/Sodium Chloride 500 ml @ 0 mls/hr 1X ONCE IV ; Start 08/09/16 at 08:15 ; Stop 08/09/16 at 18:05; Status DC Dextrose/Sodium Chloride 1,000 ml @ 100 mls/hr Q10H IV ; Start 08/09/16 at 08:15 ; Stop 08/09/16 at 18:05; Status DC Active Scripts Active Reported Timolol Maleate 10 Ml Drops 1 Drop EACHEYE BID Docusate Sodium 100 Mg Capsule 100 Mg PO PRN DAILY PRN Melatonin 3 Mg Tablet 3 Mg PO PRN QHS PRN Lorazepam 0.5 Mg Tablet 0.5 Mg PO PRN Q6HRS PRN Travatan Z (Travoprost) 5 Ml Drops 1 Drop OU QHS Lorazepam 0.5 Mg Tablet 0.5 Mg PO BID Donepezil Hcl 10 Mg Tablet 10 Mg PO DAILY Sinemet 25-100 Mg Tablet (Carbidopa/Levodopa) 1 Each Tablet 1 Tab PO TID Aspirin Ec (Aspirin) 81 Mg Tablet.dr 81 Mg PO DAILY Miralax (Polyethylene Glycol 3350) 17 Gm Powd.pack 17 Gm PO PRN DAILY PRN Triamterene-Hctz 37.5-25 Mg Cp (Triamterene/Hydrochlorothiazid) 1 Each Capsule 1 Tab PO DAILY PRN Metoprolol Succinate ( Xl ) (Metoprolol Succinate) 100 Mg Tab.er.24h 100 Mg PO DAILY Bupropion Hcl Sr (Bupropion Hcl) 150 Mg Tablet.er 150 Mg PO BID Citalopram Hbr (Citalopram Hydrobromide) 40 Mg Tablet 40 Mg PO DAILY Fenofibrate 160 Mg Tablet 160 Mg PO DAILY Levothyroxine Sodium 88 Mcg Tablet 88 Mcg PO DAILYAC Nifedipine Er (Nifedipine) 60 Mg Tab.er.24 60 Mg PO DAILY Diagnosis: Problems: (1) Altered mental status (2) Acute adjustment disorder (3) Anxiety disorder (4) Impulse control disorder (5) Dementia, vascular, with depression (6) Dementia, vascular, with delusions (7) Dementia in Alzheimer's disease with depression (8) Dementia in Alzheimer's disease with delusions BHAVNA CAMARA MD August 09, 2016 19:05
[2016-08-09] MEDS: CYPROHEPTADINE 4 MG TABLET. PO SCH ×2 (21:00→21:31)
[2016-08-09] MEDS: LATANOPROST 0.005% OPHTH SOLUTION 2.5ML BOTTLE. OU SCH (21:29)
--- NOTE | 2016-08-10 00:56 | NUR ---
Behavior Intervention Response and Plan: BIRP Note: Behavior: Assumed Care of patient, patient located in Day Room at shift change. Patient exhibited the following behavior Calm, Drowsy, Non Compliant. Brief assessment on rounds of vital signs, medication needs, lab studies, and pain. Treatment plan problems:1-2 Intervention: Patient assessed and the following interventions initiated safety checks 15 Minute Checks Cognitive Assessment , Head to toe Assessment , Medications. Response: After interactions and interventions patient responded in the following manner, Disorganized , Defensive ,Non Compliant. Continue to assess behaviors and condition will continue to monitor throughout the shift as needed. Pt spat out her HS meds. She was nonverbal tonight But would nod/shake her head appropriately to simple questions- she also did not open her eyes, even when asked, during our interaction. Pt spat out her HS meds. Plan: Continue to monitor Master Treatment Plan for patient's progress toward short term goals of Medication Compliance, Improved Mood, detention goals to return to previous living setting vs placement. Continue to assess patient for changes in above assessment. Monitor for medication needs, pain, and safety concerns. Hourly rounding performed to ensure safe environment.
[2016-08-10] MEDS: LEVOTHYROXINE 88 MCG TABLET PO SCH (06:01)
[2016-08-10 06:31] VITALS: BP 109/48
[2016-08-10 06:38] LABS: BASO % 0 % (0-3); EOS % 0 % (0-3); HEMATOCRIT 38.8 % (36.0-47.0); HEMOGLOBIN 12.7 g/dL (12.0-15.5); LYMPH # 2.1 x10^3/uL (1.0-4.8); LYMPH % 23 % (24-48); MEAN CORPUSCULAR HEMOGLOBIN 30 pg (25-35); MEAN CORPUSCULAR HGB CONC 33 g/dL (31-37); MEAN CORPUSCULAR VOLUME 92 fL (79-100); MONO % 11 % (0-9); NEUT % 65 % (31-73); PLATELET COUNT 283 x10^3/uL (140-400); RED BLOOD COUNT 4.23 x10^6/uL (3.50-5.40); RED CELL DISTRIBUTION WIDTH 14.4 % (11.5-14.5); WHITE BLOOD COUNT 9.2 x10^3/uL (4.0-11.0)
[2016-08-10 06:57] LABS: ALBUMIN/GLOBULIN RATIO 0.8 (1.0-1.7); CREATININE 2.7 mg/dL (0.6-1.0); GFR 17.2; TOTAL BILIRUBIN 0.7 mg/dL (0.2-1.0)
[2016-08-10 07:07] LABS: % BANDS 2 % (0-9); % LYMPHS 27 % (24-48); % MONOS 10 % (0-10); % SEGS 61 % (35-66)
[2016-08-10 07:08] LABS: PLT ESTIMATE ADEQUATE (ADEQUATE)
[2016-08-10 07:09] LABS: TOXIC GRANULATION SLIGHT
--- NOTE | 2016-08-10 10:57 | NUR ---
Behavior Intervention Response and Plan: BIRP Note: Behavior: Assumed Care of patient, patient located in Patient Room at shift change. Patient exhibited the following behavior refusing medications, confused, withdrawn, refusing medication, sitting with eyes closed. Brief assessment on rounds of vital signs, medication needs, lab studies, and pain. Treatment plan problems Dementia with BD and Fall Risk. Intervention: Patient assessed and the following interventions initiated safety checks 15 Minute Checks Cognitive Assessment , Head to toe Assessment , Medications. Response: After interactions and interventions patient responded in the following manner, sitting quietly, confused. Continue to assess behaviors and condition will continue to monitor throughout the shift as needed. Plan: Continue to monitor Master Treatment Plan for patient's progress toward short term goals of Decreased Agitation, Decreased Aggression, half-way goals to return to previous living setting vs placement. Continue to assess patient for changes in above assessment. Monitor for medication needs, pain, and safety concerns. Hourly rounding performed to ensure safe environment.
[2016-08-10] MEDS: busPIRone 5 MG TABLET. PO SCH ×2 (12:05→21:38)
[2016-08-10] MEDS: CITALOPRAM 20 MG TABLET. PO SCH (12:05)
[2016-08-10] MEDS: CARBIDOPA/LEVODOPA 25/100MG TABLET PO SCH ×3 (12:05→21:38)
[2016-08-10] MEDS: MEMANTINE 5 MG TABLET. PO SCH ×2 (12:06→21:38)
[2016-08-10] MEDS: buPROPion SR 150 MG TABLET.SA PO SCH ×2 (12:06→21:38)
[2016-08-10] MEDS: ASPIRIN ENTERIC COATED 81 MG TABLET.DR. PO SCH (12:06)
[2016-08-10] MEDS: METOPROLOL SUCC 24HR ER 50 MG TAB.ER.24H. PO SCH (12:06)
[2016-08-10] MEDS: DONEPEZIL HCL 10 MG TABLET PO SCH (12:06)
[2016-08-10] MEDS: TIMOLOL 0.5% OPHTH SOLUTION 5ML BOTTLE. OU SCH ×2 (12:09→21:00)
[2016-08-10] MEDS: FENOFIBRATE NANOCRYSTALLIZED 145 MG TABLET PO SCH (12:09)
[2016-08-10 15:39] VITALS: BP 131/55
--- NOTE | 2016-08-10 18:43 | PN ---
DATE: 08/08/2016 PSYCHIATRIC PROGRESS NOTE This is late entry of 08/08/2016, covers elements not covered in my initial note. SUBJECTIVE: The patient slept 2-1/4 hours previous night, refused medications morning of 08/08/2016, oral intake remains poor, blood pressure is better per nursing report. REVIEW OF SYSTEMS: No CV, , pulmonary, eye, ENT system symptoms on review. MENTAL STATUS EXAMINATION: Oriented to herself. Insight, judgment, recent and remote memory, attention, concentration, fund of knowledge poor, consistent with her diagnosis mentioned in my initial note. PLAN: The patient is quite sedated. We will stop Seroquel 12.5 b.i.d. Maintain rest unchanged as noted in my initial note, may need to add Remeron to help with her insomnia. BHAVNA CAMARA MD DR: RYLIE/zunilda JOB#: [id number] / [id number]
--- NOTE | 2016-08-10 18:48 | PN ---
DATE: 08/09/2016 PSYCHIATRIC PROGRESS NOTE This is late entry of 08/09/2016, covers elements not covered in my initial note. SUBJECTIVE: The patient takes her medications crushed, oral intake is poor, BUN 45, creatinine 2.3, potassium 5.4. We will defer to Dr. Joseph for medical management. She gets agitated at times, was hitting, punching at staff, slapping at nursing staff when they attempted to place an IV. REVIEW OF SYSTEMS: No CV, , eye, ENT or pulmonary system symptoms on review. Reliability poor. MENTAL STATUS EXAMINATION: Oriented to herself. Insight, judgment, recent and remote memory, attention, concentration, fund of knowledge poor, consistent with her diagnosis mentioned in my initial note. PLAN: Continue current psychotropics, Seroquel has been stopped. We will make further adjustments as clinically indicated. MAN Hannah CAMARA MD DR: RYLIE/zunilda JOB#: [id number] / [id number]
--- NOTE | 2016-08-10 19:43 | PDOC ---
Exam Benson Demential Exam: Benson Note: Please also refer to the separate dictated note~for this date of service dictated separately.~Patient seen individually. Discussed the patient with Nursing staff reviewed the chart.~Reviewed interim history and current functioning. Reviewed vital signs,~Labs/ Radiology~and current medications noted below. Continue current treatment with the changes noted in the dictated addendum note Assessment: Vital Signs: Vital Signs Date Time Temp Pulse Resp B/P (MAP) Pulse Ox O2 Delivery O2 Flow Rate FiO2 08/10/16 15:39 97.6 84 16 131/55 (80) 92 I&O Intake and Output 08/10/16 07:00 Intake Total 1727 ml Output Total 300 ml Balance 1427 ml Intake Oral 1727 ml Output Emesis 300 ml # Bowel Movements 1 Labs: Laboratory Tests Test 08/10/16 06:29 White Blood Count 9.2 x10^3/uL (4.0-11.0) Red Blood Count 4.23 x10^6/uL (3.50-5.40) Hemoglobin 12.7 g/dL (12.0-15.5) Hematocrit 38.8 % (36.0-47.0) Mean Corpuscular Volume 92 fL (79-100) Mean Corpuscular Hemoglobin 30 pg (25-35) Mean Corpuscular Hemoglobin Concent 33 g/dL (31-37) Red Cell Distribution Width 14.4 % (11.5-14.5) Platelet Count 283 x10^3/uL (140-400) Neutrophils (%) (Auto) 65 % (31-73) Lymphocytes (%) (Auto) 23 % (24-48) L Monocytes (%) (Auto) 11 % (0-9) H Eosinophils (%) (Auto) 0 % (0-3) Basophils (%) (Auto) 0 % (0-3) Neutrophils # (Auto) 6.0 x10^3uL (1.8-7.7) Lymphocytes # (Auto) 2.1 x10^3/uL (1.0-4.8) Monocytes # (Auto) 1.0 x10^3/uL (0.0-1.1) Eosinophils # (Auto) 0.0 x10^3/uL (0.0-0.7) Basophils # (Auto) 0.0 x10^3/uL (0.0-0.2) Segmented Neutrophils % 61 % (35-66) Band Neutrophils % 2 % (0-9) Lymphocytes % 27 % (24-48) Monocytes % 10 % (0-10) Toxic Granulation Slight Platelet Estimate Adequate (ADEQUATE) Large Platelets Occ Sodium Level 141 mmol/L (136-145) Potassium Level 4.0 mmol/L (3.5-5.1) Chloride Level 103 mmol/L (98-107) Carbon Dioxide Level 31 mmol/L (21-32) Anion Gap 7 (6-14) Blood Urea Nitrogen 51 mg/dL (7-20) H Creatinine 2.7 mg/dL (0.6-1.0) H Estimated GFR (Cockcroft-Gault) 17.2 BUN/Creatinine Ratio 19 (6-20) Glucose Level 102 mg/dL (70-99) H Calcium Level 9.0 mg/dL (8.5-10.1) Magnesium Level 2.0 mg/dL (1.8-2.4) Total Bilirubin 0.7 mg/dL (0.2-1.0) Aspartate Amino Transferase (AST) 97 U/L (15-37) H Alanine Aminotransferase (ALT) 68 U/L (14-59) H Alkaline Phosphatase 43 U/L (46-116) L Total Protein 7.0 g/dL (6.4-8.2) Albumin 3.0 g/dL (3.4-5.0) L Albumin/Globulin Ratio 0.8 (1.0-1.7) L Current Medications: Meds: Current Medications Sodium Chloride 1,000 ml @ 100 mls/hr Q10H IV Last administered on 07/31/16 19:09; Start 07/31/16 at 19:09; Stop 08/01/16 at 05:08; Status DC Sodium Chloride (Normal Saline Flush) 10 ml QSHIFT PRN IV AFTER MEDS AND BLOOD DRAWS Last administered on 07/31/16 20:05; Start 07/31/16 at 19:15 Acetaminophen (Tylenol) 650 mg PRN Q6HRS PRN PO PAIN / TEMP; Start 08/01/16 at 01:15 Multi-Ingredient Ointment (Analgesic [place]) 1 shadia PRN QID PRN TP MUSCLE PAIN; Start 08/01/16 at 01:15 Al Hydroxide/Mg Hydroxide (Mylanta Plus Xs) 15 ml PRN AFTMEALHC PRN PO DYSPEPSIA; Start 08/01/16 at 01:15 Magnesium Hydroxide (Milk Of Magnesia) 2,400 mg PRN QHS PRN PO CONSTIPATION; Start 08/01/16 at 01:15 Aspirin (Aspirin Enteric Coated) 81 mg DAILY PO Last administered on 08/10/16 12:06; Start 08/01/16 at 09:00 Carbidopa/Levodopa (Sinemet 25/100) 1 tab TID PO Last administered on 08/10/16 12:05; Start 08/01/16 at 09:00 Docusate Sodium (Colace) 100 mg PRN DAILY PRN PO CONSTIPATION Last administered on 08/08/16 08:17; Start 08/01/16 at 01:15 Levothyroxine Sodium (Synthroid) 88 mcg DAILYAC PO Last administered on 07:30; Start 08/01/16 at 07:30; Stop 08/03/16 at 07:43; Status DC Metoprolol Succinate (Toprol Xl) 100 mg DAILY PO Last administered on 08/08/16 08:18; Start 08/01/16 at 09:00; Stop 08/09/16 at 08:05; Status DC Polyethylene Glycol (miraLAX) 17 gm PRN DAILY PRN PO CONSTIPATION; Start at 01:15 Timolol Maleate (Timoptic 0.5% [facility]) 1 drop BID OU Last administered on 12:44; Start 08/01/16 at 09:00 Fenofibrate (Tricor) 145 mg DAILY PO Last administered on 08/09/16 12:45; Start 08/01/16 at 09:00 Nifedipine (Procardia Xl) 60 mg DAILY PO Last administered on 08/07/16 09:00; Start 08/01/16 at 09:00; Stop 08/07/16 at 14:03; Status DC Latanoprost (Xalatan) 1 drop QHS OU Last administered on 08/09/16 21:29; Start 08/01/16 at 21:00 Triamterene/HCTZ (Maxzide 37.5/ 25mg) 1 tab DAILY PO Last administered on 09:00; Start 08/01/16 at 09:00; Stop 08/07/16 at 14:03; Status DC Bupropion HCl (Wellbutrin Sr) 150 mg BID PO Last administered on 08/10/16 12:06 ; Start 08/01/16 at 09:00 Donepezil HCl (Aricept) 10 mg DAILY PO Last administered on 08/10/16 12:06; Start 08/01/16 at 09:00 Lorazepam (Ativan) 0.5 mg BID PO Last administered on 08/05/16 10:01; Start at 09:00; Stop 08/05/16 at 19:21; Status DC Lorazepam (Ativan) 0.5 mg PRN Q6HRS PRN PO ANXIETY / AGITATION Last administered on 08/02/16 22:42; Start 08/01/16 at 01:15 Melatonin 3 mg PRN QHS PRN PO INSOMNIA Last administered on 08/06/16 20:26; Start 08/01/16 at 01:15 Citalopram Hydrobromide (Celexa) 40 mg DAILY PO Last administered on 08/02/16 09:39; Start 08/01/16 at 09:00; Stop 08/03/16 at 18:27; Status DC Levothyroxine Sodium (Synthroid) 88 mcg DAILY06 PO Last administered on 06:01; Start 08/04/16 at 06:00 Vitamin D (Vitamin D3) 50,000 unit WEEKLY PO ; Start 08/04/16 at 09:00 Citalopram Hydrobromide (Celexa) 20 mg DAILY PO Last administered on 08/10/16 12:05; Start 08/04/16 at 09:00 Buspirone HCl (Buspar) 5 mg BID PO Last administered on 08/10/16 12:05; Start 08/03/16 at 21:00 Memantine (Namenda) 5 mg BID PO Last administered on 08/10/16 12:06; Start 08/04 at 21:00 Quetiapine Fumarate (SEROquel) 12.5 mg BID PO Last administered on 08/08/16 08: 18; Start 08/04/16 at 21:00; Stop 08/08/16 at 18:15; Status DC Cyproheptadine HCl (Periactin) 2 mg PRN QHS PRN PO SUPPLEMENT; Start 08/05/16 at 21:00; Stop 08/05/16 at 21:00; Status DC Cyproheptadine HCl (Periactin) 2 mg HS PO Last administered on 08/08/16 20:06; Start 08/05/16 at 21:00 Lorazepam (Ativan) 0.25 mg BID PO Last administered on 08/07/16 09:00; Start at 21:00; Stop 08/07/16 at 20:59; Status DC Lorazepam (Ativan) 0.25 mg DAILY PO Last administered on 08/08/16 08:16; Start 08/08/16 at 09:00; Stop 08/09/16 at 21:00; Status DC Metoprolol Succinate (Toprol Xl) 50 mg DAILY PO ; Start 08/09/16 at 09:00 Dextrose/Sodium Chloride 500 ml @ 0 mls/hr 1X ONCE IV ; Start 08/09/16 at 08:15 ; Stop 08/09/16 at 18:05; Status DC Dextrose/Sodium Chloride 1,000 ml @ 100 mls/hr Q10H IV ; Start 08/09/16 at 08:15 ; Stop 08/09/16 at 18:05; Status DC Active Scripts Active Reported Timolol Maleate 10 Ml Drops 1 Drop EACHEYE BID Docusate Sodium 100 Mg Capsule 100 Mg PO PRN DAILY PRN Melatonin 3 Mg Tablet 3 Mg PO PRN QHS PRN Lorazepam 0.5 Mg Tablet 0.5 Mg PO PRN Q6HRS PRN Travatan Z (Travoprost) 5 Ml Drops 1 Drop OU QHS Lorazepam 0.5 Mg Tablet 0.5 Mg PO BID Donepezil Hcl 10 Mg Tablet 10 Mg PO DAILY Sinemet 25-100 Mg Tablet (Carbidopa/Levodopa) 1 Each Tablet 1 Tab PO TID Aspirin Ec (Aspirin) 81 Mg Tablet.dr 81 Mg PO DAILY Miralax (Polyethylene Glycol 3350) 17 Gm Powd.pack 17 Gm PO PRN DAILY PRN Triamterene-Hctz 37.5-25 Mg Cp (Triamterene/Hydrochlorothiazid) 1 Each Capsule 1 Tab PO DAILY PRN Metoprolol Succinate ( Xl ) (Metoprolol Succinate) 100 Mg Tab.er.24h 100 Mg PO DAILY Bupropion Hcl Sr (Bupropion Hcl) 150 Mg Tablet.er 150 Mg PO BID Citalopram Hbr (Citalopram Hydrobromide) 40 Mg Tablet 40 Mg PO DAILY Fenofibrate 160 Mg Tablet 160 Mg PO DAILY Levothyroxine Sodium 88 Mcg Tablet 88 Mcg PO DAILYAC Nifedipine Er (Nifedipine) 60 Mg Tab.er.24 60 Mg PO DAILY Diagnosis: Problems: (1) Altered mental status (2) Acute adjustment disorder (3) Anxiety disorder (4) Impulse control disorder (5) Dementia, vascular, with depression (6) Dementia, vascular, with delusions (7) Dementia in Alzheimer's disease with depression (8) Dementia in Alzheimer's disease with delusions BHAVNA CAMARA MD August 10, 2016 19:43
[2016-08-10] MEDS: LATANOPROST 0.005% OPHTH SOLUTION 2.5ML BOTTLE. OU SCH (21:37)
[2016-08-10] MEDS: CYPROHEPTADINE 4 MG TABLET. PO SCH (21:38)
--- NOTE | 2016-08-11 03:03 | NUR ---
Behavior Intervention Response and Plan: BIRP Note: Behavior: Assumed Care of patient, patient located in Day Room at shift change. Patient exhibited the following behavior Calm, Disorganized, Withdrawn. Brief assessment on rounds of vital signs, medication needs, lab studies, and pain. Treatment plan problems:1-2 Intervention: Patient assessed and the following interventions initiated safety checks 15 Minute Checks , Head to toe Assessment , Medications. Response: After interactions and interventions patient responded in the following manner, Calm , Able to Focus on Task ,Cooperative. Continue to assess behaviors and condition will continue to monitor throughout the shift as needed. Plan: Continue to monitor Master Treatment Plan for patient's progress toward short term goals of Medication Compliance, Improved Mood, long-term goals to return to previous living setting vs placement. Continue to assess patient for changes in above assessment. Monitor for medication needs, pain, and safety concerns. Hourly rounding performed to ensure safe environment.
--- NOTE | 2016-08-11 03:08 | NUR ---
Nsg Note: Pt drank 240ml of a boost tonight along w/ approx.40ml of H2O & 60ml of pudding w/ her HS meds. She was slightly more animated tonight vs last night. In addition, she had her eyes open & answered a few simple questions appropriately. Will cont. to monitor & encourage po intake.
[2016-08-11] MEDS: LEVOTHYROXINE 88 MCG TABLET PO SCH (06:26)
[2016-08-11 06:44] VITALS: BP 104/66
[2016-08-11] MEDS: TIMOLOL 0.5% OPHTH SOLUTION 5ML BOTTLE. OU SCH ×2 (08:14→20:18)
[2016-08-11] MEDS: DONEPEZIL HCL 10 MG TABLET PO SCH (08:15)
[2016-08-11] MEDS: ASPIRIN ENTERIC COATED 81 MG TABLET.DR. PO SCH (08:15)
[2016-08-11] MEDS: CARBIDOPA/LEVODOPA 25/100MG TABLET PO SCH ×3 (08:15→20:17)
[2016-08-11] MEDS: MEMANTINE 5 MG TABLET. PO SCH ×2 (08:15→20:17)
[2016-08-11] MEDS: CITALOPRAM 20 MG TABLET. PO SCH (08:15)
[2016-08-11] MEDS: busPIRone 5 MG TABLET. PO SCH ×2 (08:15→20:18)
[2016-08-11] MEDS: buPROPion SR 150 MG TABLET.SA PO SCH ×2 (08:16→20:18)
[2016-08-11] MEDS: FENOFIBRATE NANOCRYSTALLIZED 145 MG TABLET PO SCH (08:16)
[2016-08-11] MEDS: CHOLECALCIFEROL (VITAMIN D3) 50,000 UNIT CAPSULE PO SCH (08:19)
[2016-08-11] MEDS: METOPROLOL SUCC 24HR ER 50 MG TAB.ER.24H. PO SCH (09:00)
--- NOTE | 2016-08-11 10:01 | NUR ---
Behavior Intervention Response and Plan: BIRP Note: Behavior: Assumed Care of patient, patient located in Patient Room at shift change. Patient exhibited the following behavior walking in hallway and pushing her wc, smiling, confused, and cooperative. Brief assessment on rounds of vital signs, medication needs, lab studies, and pain. Treatment plan problems Dementia with BD and Fall Risk. Intervention: Patient assessed and the following interventions initiated safety checks 15 Minute Checks Cognitive Assessment , Head to toe Assessment , Medications. Response: After interactions and interventions patient responded in the following manner, confused, calm, cooperative. Continue to assess behaviors and condition will continue to monitor throughout the shift as needed. Plan: Continue to monitor Master Treatment Plan for patient's progress toward short term goals of Decreased Agitation, Decreased Aggression, [facility] goals to return to previous living setting vs placement. Continue to assess patient for changes in above assessment. Monitor for medication needs, pain, and safety concerns. Hourly rounding performed to ensure safe environment.
--- NOTE | 2016-08-11 10:16 | NUR ---
SW spoke with pt son, he would like pt to be eval for hospice if possible. SW will send information over if pt has a decline. CYNTHIA explained pt was up this am and talking as well as eating some.
--- NOTE | 2016-08-11 10:17 | NUR ---
SW tried to engage pt in group activity, pt was watching TV and did not want to join, pt eyes were open and she was smiling. Pt was sitting in wheel chair however would stand up and sit back down multiple times while watching TV in day room. SW observed her throughout the group time.
--- NOTE | 2016-08-11 10:19 | NUR ---
SW spoke with pt facility and provided them an update. SW will fax over update at a later time today.
[2016-08-11 16:05] VITALS: BP 106/68
--- NOTE | 2016-08-11 19:57 | PDOC ---
Exam Benson Demential Exam: Benson Note: Please also refer to the separate dictated note~for this date of service dictated separately.~Patient seen individually. Discussed the patient with Nursing staff reviewed the chart.~Reviewed interim history and current functioning. Reviewed vital signs,~Labs/ Radiology~and current medications noted below. Continue current treatment with the changes noted in the dictated addendum note Assessment: Vital Signs: Vital Signs Date Time Temp Pulse Resp B/P (MAP) Pulse Ox O2 Delivery O2 Flow Rate FiO2 08/11/16 16:05 97.6 71 16 106/68 (81) 97 I&O Intake and Output 08/11/16 07:00 Intake Total 1060 ml Balance 1060 ml Intake Oral 1060 ml Current Medications: Meds: Current Medications Sodium Chloride 1,000 ml @ 100 mls/hr Q10H IV Last administered on 07/31/16 19:09; Start 07/31/16 at 19:09; Stop 08/01/16 at 05:08; Status DC Sodium Chloride (Normal Saline Flush) 10 ml QSHIFT PRN IV AFTER MEDS AND BLOOD DRAWS Last administered on 07/31/16 20:05; Start 07/31/16 at 19:15 Acetaminophen (Tylenol) 650 mg PRN Q6HRS PRN PO PAIN / TEMP; Start 08/01/16 at 01:15 Multi-Ingredient Ointment (Analgesic [place]) 1 shadia PRN QID PRN TP MUSCLE PAIN; Start 08/01/16 at 01:15 Al Hydroxide/Mg Hydroxide (Mylanta Plus Xs) 15 ml PRN AFTMEALHC PRN PO DYSPEPSIA; Start 08/01/16 at 01:15 Magnesium Hydroxide (Milk Of Magnesia) 2,400 mg PRN QHS PRN PO CONSTIPATION; Start 08/01/16 at 01:15 Aspirin (Aspirin Enteric Coated) 81 mg DAILY PO Last administered on 08/11/16 08:15; Start 08/01/16 at 09:00 Carbidopa/Levodopa (Sinemet 25/100) 1 tab TID PO Last administered on 08/11/16 13:29; Start 08/01/16 at 09:00 Docusate Sodium (Colace) 100 mg PRN DAILY PRN PO CONSTIPATION Last administered on 08/08/16 08:17; Start 08/01/16 at 01:15 Levothyroxine Sodium (Synthroid) 88 mcg DAILYAC PO Last administered on 07:30; Start 08/01/16 at 07:30; Stop 08/03/16 at 07:43; Status DC Metoprolol Succinate (Toprol Xl) 100 mg DAILY PO Last administered on 08/08/16 08:18; Start 08/01/16 at 09:00; Stop 08/09/16 at 08:05; Status DC Polyethylene Glycol (miraLAX) 17 gm PRN DAILY PRN PO CONSTIPATION; Start at 01:15 Timolol Maleate (Timoptic 0.5% [facility]) 1 drop BID OU Last administered on 08:14; Start 08/01/16 at 09:00 Fenofibrate (Tricor) 145 mg DAILY PO Last administered on 08/11/16 08:16; Start 08/01/16 at 09:00 Nifedipine (Procardia Xl) 60 mg DAILY PO Last administered on 08/07/16 09:00; Start 08/01/16 at 09:00; Stop 08/07/16 at 14:03; Status DC Latanoprost (Xalatan) 1 drop QHS OU Last administered on 08/10/16 21:37; Start 08/01/16 at 21:00 Triamterene/HCTZ (Maxzide 37.5/ 25mg) 1 tab DAILY PO Last administered on 09:00; Start 08/01/16 at 09:00; Stop 08/07/16 at 14:03; Status DC Bupropion HCl (Wellbutrin Sr) 150 mg BID PO Last administered on 08/11/16 08:16 ; Start 08/01/16 at 09:00 Donepezil HCl (Aricept) 10 mg DAILY PO Last administered on 08/11/16 08:15; Start 08/01/16 at 09:00 Lorazepam (Ativan) 0.5 mg BID PO Last administered on 08/05/16 10:01; Start at 09:00; Stop 08/05/16 at 19:21; Status DC Lorazepam (Ativan) 0.5 mg PRN Q6HRS PRN PO ANXIETY / AGITATION Last administered on 08/02/16 22:42; Start 08/01/16 at 01:15 Melatonin 3 mg PRN QHS PRN PO INSOMNIA Last administered on 08/06/16 20:26; Start 08/01/16 at 01:15 Citalopram Hydrobromide (Celexa) 40 mg DAILY PO Last administered on 08/02/16 09:39; Start 08/01/16 at 09:00; Stop 08/03/16 at 18:27; Status DC Levothyroxine Sodium (Synthroid) 88 mcg DAILY06 PO Last administered on 06:26; Start 08/04/16 at 06:00 Vitamin D (Vitamin D3) 50,000 unit WEEKLY PO Last administered on 08/11/16 08: 19; Start 08/04/16 at 09:00 Citalopram Hydrobromide (Celexa) 20 mg DAILY PO Last administered on 08/11/16 08:15; Start 08/04/16 at 09:00 Buspirone HCl (Buspar) 5 mg BID PO Last administered on 08/11/16 08:15; Start 08/03/16 at 21:00 Memantine (Namenda) 5 mg BID PO Last administered on 08/11/16 08:15; Start 08/04 at 21:00 Quetiapine Fumarate (SEROquel) 12.5 mg BID PO Last administered on 08/08/16 08: 18; Start 08/04/16 at 21:00; Stop 08/08/16 at 18:15; Status DC Cyproheptadine HCl (Periactin) 2 mg PRN QHS PRN PO SUPPLEMENT; Start 08/05/16 at 21:00; Stop 08/05/16 at 21:00; Status DC Cyproheptadine HCl (Periactin) 2 mg HS PO Last administered on 08/10/16 21:38; Start 08/05/16 at 21:00 Lorazepam (Ativan) 0.25 mg BID PO Last administered on 08/07/16 09:00; Start at 21:00; Stop 08/07/16 at 20:59; Status DC Lorazepam (Ativan) 0.25 mg DAILY PO Last administered on 08/08/16 08:16; Start 08/08/16 at 09:00; Stop 08/09/16 at 21:00; Status DC Metoprolol Succinate (Toprol Xl) 50 mg DAILY PO ; Start 08/09/16 at 09:00 Dextrose/Sodium Chloride 500 ml @ 0 mls/hr 1X ONCE IV ; Start 08/09/16 at 08:15 ; Stop 08/09/16 at 18:05; Status DC Dextrose/Sodium Chloride 1,000 ml @ 100 mls/hr Q10H IV ; Start 08/09/16 at 08:15 ; Stop 08/09/16 at 18:05; Status DC Active Scripts Active Reported Timolol Maleate 10 Ml Drops 1 Drop EACHEYE BID Docusate Sodium 100 Mg Capsule 100 Mg PO PRN DAILY PRN Melatonin 3 Mg Tablet 3 Mg PO PRN QHS PRN Lorazepam 0.5 Mg Tablet 0.5 Mg PO PRN Q6HRS PRN Travatan Z (Travoprost) 5 Ml Drops 1 Drop OU QHS Lorazepam 0.5 Mg Tablet 0.5 Mg PO BID Donepezil Hcl 10 Mg Tablet 10 Mg PO DAILY Sinemet 25-100 Mg Tablet (Carbidopa/Levodopa) 1 Each Tablet 1 Tab PO TID Aspirin Ec (Aspirin) 81 Mg Tablet.dr 81 Mg PO DAILY Miralax (Polyethylene Glycol 3350) 17 Gm Powd.pack 17 Gm PO PRN DAILY PRN Triamterene-Hctz 37.5-25 Mg Cp (Triamterene/Hydrochlorothiazid) 1 Each Capsule 1 Tab PO DAILY PRN Metoprolol Succinate ( Xl ) (Metoprolol Succinate) 100 Mg Tab.er.24h 100 Mg PO DAILY Bupropion Hcl Sr (Bupropion Hcl) 150 Mg Tablet.er 150 Mg PO BID Citalopram Hbr (Citalopram Hydrobromide) 40 Mg Tablet 40 Mg PO DAILY Fenofibrate 160 Mg Tablet 160 Mg PO DAILY Levothyroxine Sodium 88 Mcg Tablet 88 Mcg PO DAILYAC Nifedipine Er (Nifedipine) 60 Mg Tab.er.24 60 Mg PO DAILY Diagnosis: Problems: (1) Altered mental status (2) Acute adjustment disorder (3) Anxiety disorder (4) Impulse control disorder (5) Dementia, vascular, with depression (6) Dementia, vascular, with delusions (7) Dementia in Alzheimer's disease with depression (8) Dementia in Alzheimer's disease with delusions BHAVNA CAMARA MD August 11, 2016 19:57
[2016-08-11] MEDS: CYPROHEPTADINE 4 MG TABLET. PO SCH (20:18)
[2016-08-11] MEDS: LATANOPROST 0.005% OPHTH SOLUTION 2.5ML BOTTLE. OU SCH (20:18)
[2016-08-11] MEDS: MELATONIN 3 MG TABLET PO PRN (20:19)
--- NOTE | 2016-08-11 23:27 | NUR ---
Behavior Intervention Response and Plan: BIRP Note: Behavior: Assumed Care of patient, patient located in Day Room at shift change. Patient exhibited the following behavior Calm, Wandering, Social. Brief assessment on rounds of vital signs, medication needs, lab studies, and pain. Treatment plan problems 1 and 2. Intervention: Patient assessed and the following interventions initiated safety checks 15 Minute Checks Cognitive Assessment , Head to toe Assessment , Medications. Response: After interactions and interventions patient responded in the following manner, Calm , Restless ,Compliant. Continue to assess behaviors and condition will continue to monitor throughout the shift as needed. Plan: Continue to monitor Master Treatment Plan for patient's progress toward short term goals of Decreased Anxiety, Decreased Anxiety, terminal carman goals to return to previous living setting vs placement. Continue to assess patient for changes in above assessment. Monitor for medication needs, pain, and safety concerns. Hourly rounding performed to ensure safe environment.
--- NOTE | 2016-08-12 00:21 | PN ---
DATE: 08/10/2016 PSYCHIATRIC PROGRESS NOTE This is a late entry of 08/10/2016 covers elements not covered in my initial note. SUBJECTIVE: The patient has been extremely confused, labile in her mood. Her son came in fed her a substantial amount of Ensure. I did feed her 3/4 of ____ supper as well myself. The previous evening, she spit out her bedtime medications. REVIEW OF SYSTEMS: Ambulation impaired, poor appetite. No CV, , Pulmonary, eye, ENT system symptoms on review. MENTAL STATUS EXAM: Oriented to herself. Insight, judgment, recent and remote memory, attention, concentration, fund of knowledge poor, consistent with her diagnosis mentioned in my initial note. PLAN: Continue Wellbutrin, Celexa, Aricept, Ativan is being tapered. Continue Ativan p.r.n., melatonin, Namenda, BuSpar, and Periactin. Adjust further as clinically indicated. BHAVNA CAMARA MD DR: RYLIE/zunilda JOB#: [id number] / [id number]
[2016-08-12] MEDS: LEVOTHYROXINE 88 MCG TABLET PO SCH (04:56)
[2016-08-12 05:54] VITALS: BP 172/82
[2016-08-12] MEDS: DONEPEZIL HCL 10 MG TABLET PO SCH (08:36)
[2016-08-12] MEDS: METOPROLOL SUCC 24HR ER 50 MG TAB.ER.24H. PO SCH (08:36)
[2016-08-12] MEDS: ASPIRIN ENTERIC COATED 81 MG TABLET.DR. PO SCH (08:36)
[2016-08-12] MEDS: buPROPion SR 150 MG TABLET.SA PO SCH ×2 (08:36→19:23)
[2016-08-12] MEDS: CITALOPRAM 20 MG TABLET. PO SCH (08:36)
[2016-08-12] MEDS: busPIRone 5 MG TABLET. PO SCH ×2 (08:36→19:23)
[2016-08-12] MEDS: FENOFIBRATE NANOCRYSTALLIZED 145 MG TABLET PO SCH (08:36)
[2016-08-12] MEDS: CARBIDOPA/LEVODOPA 25/100MG TABLET PO SCH ×3 (08:36→19:23)
[2016-08-12] MEDS: MEMANTINE 5 MG TABLET. PO SCH ×2 (08:36→19:23)
[2016-08-12] MEDS: TIMOLOL 0.5% OPHTH SOLUTION 5ML BOTTLE. OU SCH ×2 (08:37→19:22)
--- NOTE | 2016-08-12 10:13 | NUR ---
Behavior Intervention Response and Plan: BIRP Note: Behavior: Assumed Care of patient, patient located in Day Room at shift change. Patient exhibited the following behavior Wandering, Calm, Compliant. Brief assessment on rounds of vital signs, medication needs, lab studies, and pain. Treatment plan problems 1 and 2. Intervention: Patient assessed and the following interventions initiated safety checks 15 Minute Checks Cognitive Assessment , Medications , Oral Hydration. Response: After interactions and interventions patient responded in the following manner, Calm , Disorganized ,Compliant. Continue to assess behaviors and condition will continue to monitor throughout the shift as needed. Plan: Continue to monitor Master Treatment Plan for patient's progress toward short term goals of Medication Compliance, Decreased Agitation, group home goals to return to previous living setting vs placement. Continue to assess patient for changes in above assessment. Monitor for medication needs, pain, and safety concerns. Hourly rounding performed to ensure safe environment.
--- NOTE | 2016-08-12 10:14 | NUR ---
patient up ad enlida wandering in dayroom and hallway. Pleasantly confused. Medication compliant when given on a spoon. Will continue to monitor.
--- NOTE | 2016-08-12 12:56 | NUR ---
CYNTHIA provided [facility] w/an updated order to transition Pt. from HH to Hospice upon dc. CYNTHIA spoke w/Brenda and Chris from [facility].
[2016-08-12 14:42] VITALS: BP 99/62
[2016-08-12] MEDS: CYPROHEPTADINE 4 MG TABLET. PO SCH (19:22)
[2016-08-12] MEDS: LATANOPROST 0.005% OPHTH SOLUTION 2.5ML BOTTLE. OU SCH (19:22)
[2016-08-12] MEDS: MELATONIN 3 MG TABLET PO PRN (19:23)
--- NOTE | 2016-08-12 20:58 | PDOC ---
Exam Benson Demential Exam: Benson Note: Please also refer to the separate dictated note~for this date of service dictated separately.~Patient seen individually. Discussed the patient with Nursing staff reviewed the chart.~Reviewed interim history and current functioning. Reviewed vital signs,~Labs/ Radiology~and current medications noted below. Continue current treatment with the changes noted in the dictated addendum note Assessment: Vital Signs: Vital Signs Date Time Temp Pulse Resp B/P (MAP) Pulse Ox O2 Delivery O2 Flow Rate FiO2 08/12/16 14:42 97.8 69 18 99/62 (74) 98 I&O Intake and Output 08/12/16 07:00 Intake Total 480 ml Balance 480 ml Intake Oral 480 ml Current Medications: Meds: Current Medications Sodium Chloride 1,000 ml @ 100 mls/hr Q10H IV Last administered on 07/31/16 19:09; Start 07/31/16 at 19:09; Stop 08/01/16 at 05:08; Status DC Sodium Chloride (Normal Saline Flush) 10 ml QSHIFT PRN IV AFTER MEDS AND BLOOD DRAWS Last administered on 07/31/16 20:05; Start 07/31/16 at 19:15 Acetaminophen (Tylenol) 650 mg PRN Q6HRS PRN PO PAIN / TEMP; Start 08/01/16 at 01:15 Multi-Ingredient Ointment (Analgesic [place]) 1 shadia PRN QID PRN TP MUSCLE PAIN; Start 08/01/16 at 01:15 Al Hydroxide/Mg Hydroxide (Mylanta Plus Xs) 15 ml PRN AFTMEALHC PRN PO DYSPEPSIA; Start 08/01/16 at 01:15 Magnesium Hydroxide (Milk Of Magnesia) 2,400 mg PRN QHS PRN PO CONSTIPATION; Start 08/01/16 at 01:15 Aspirin (Aspirin Enteric Coated) 81 mg DAILY PO Last administered on 08/12/16 08:36; Start 08/01/16 at 09:00 Carbidopa/Levodopa (Sinemet 25/100) 1 tab TID PO Last administered on 08/12/16 19:23; Start 08/01/16 at 09:00 Docusate Sodium (Colace) 100 mg PRN DAILY PRN PO CONSTIPATION Last administered on 08/08/16 08:17; Start 08/01/16 at 01:15 Levothyroxine Sodium (Synthroid) 88 mcg DAILYAC PO Last administered on 07:30; Start 08/01/16 at 07:30; Stop 08/03/16 at 07:43; Status DC Metoprolol Succinate (Toprol Xl) 100 mg DAILY PO Last administered on 08/08/16 08:18; Start 08/01/16 at 09:00; Stop 08/09/16 at 08:05; Status DC Polyethylene Glycol (miraLAX) 17 gm PRN DAILY PRN PO CONSTIPATION; Start at 01:15 Timolol Maleate (Timoptic 0.5% [facility]) 1 drop BID OU Last administered on 19:22; Start 08/01/16 at 09:00 Fenofibrate (Tricor) 145 mg DAILY PO Last administered on 08/12/16 08:36; Start 08/01/16 at 09:00 Nifedipine (Procardia Xl) 60 mg DAILY PO Last administered on 08/07/16 09:00; Start 08/01/16 at 09:00; Stop 08/07/16 at 14:03; Status DC Latanoprost (Xalatan) 1 drop QHS OU Last administered on 08/12/16 19:22; Start 08/01/16 at 21:00 Triamterene/HCTZ (Maxzide 37.5/ 25mg) 1 tab DAILY PO Last administered on 09:00; Start 08/01/16 at 09:00; Stop 08/07/16 at 14:03; Status DC Bupropion HCl (Wellbutrin Sr) 150 mg BID PO Last administered on 08/12/16 19:23 ; Start 08/01/16 at 09:00 Donepezil HCl (Aricept) 10 mg DAILY PO Last administered on 08/12/16 08:36; Start 08/01/16 at 09:00 Lorazepam (Ativan) 0.5 mg BID PO Last administered on 08/05/16 10:01; Start at 09:00; Stop 08/05/16 at 19:21; Status DC Lorazepam (Ativan) 0.5 mg PRN Q6HRS PRN PO ANXIETY / AGITATION Last administered on 08/02/16 22:42; Start 08/01/16 at 01:15 Melatonin 3 mg PRN QHS PRN PO INSOMNIA Last administered on 08/12/16 19:23; Start 08/01/16 at 01:15 Citalopram Hydrobromide (Celexa) 40 mg DAILY PO Last administered on 08/02/16 09:39; Start 08/01/16 at 09:00; Stop 08/03/16 at 18:27; Status DC Levothyroxine Sodium (Synthroid) 88 mcg DAILY06 PO Last administered on 04:56; Start 08/04/16 at 06:00 Vitamin D (Vitamin D3) 50,000 unit WEEKLY PO Last administered on 08/11/16 08: 19; Start 08/04/16 at 09:00 Citalopram Hydrobromide (Celexa) 20 mg DAILY PO Last administered on 08/12/16 08:36; Start 08/04/16 at 09:00 Buspirone HCl (Buspar) 5 mg BID PO Last administered on 08/12/16 19:23; Start 08/03/16 at 21:00 Memantine (Namenda) 5 mg BID PO Last administered on 08/12/16 19:23; Start 08/04 at 21:00 Quetiapine Fumarate (SEROquel) 12.5 mg BID PO Last administered on 08/08/16 08: 18; Start 08/04/16 at 21:00; Stop 08/08/16 at 18:15; Status DC Cyproheptadine HCl (Periactin) 2 mg PRN QHS PRN PO SUPPLEMENT; Start 08/05/16 at 21:00; Stop 08/05/16 at 21:00; Status DC Cyproheptadine HCl (Periactin) 2 mg HS PO Last administered on 08/12/16 19:22; Start 08/05/16 at 21:00 Lorazepam (Ativan) 0.25 mg BID PO Last administered on 08/07/16 09:00; Start at 21:00; Stop 08/07/16 at 20:59; Status DC Lorazepam (Ativan) 0.25 mg DAILY PO Last administered on 08/08/16 08:16; Start 08/08/16 at 09:00; Stop 08/09/16 at 21:00; Status DC Metoprolol Succinate (Toprol Xl) 50 mg DAILY PO Last administered on 08/12/16t 08:36; Start 08/09/16 at 09:00 Dextrose/Sodium Chloride 500 ml @ 0 mls/hr 1X ONCE IV ; Start 08/09/16 at 08:15 ; Stop 08/09/16 at 18:05; Status DC Dextrose/Sodium Chloride 1,000 ml @ 100 mls/hr Q10H IV ; Start 08/09/16 at 08:15 ; Stop 08/09/16 at 18:05; Status DC Active Scripts Active Reported Timolol Maleate 10 Ml Drops 1 Drop EACHEYE BID Docusate Sodium 100 Mg Capsule 100 Mg PO PRN DAILY PRN Melatonin 3 Mg Tablet 3 Mg PO PRN QHS PRN Lorazepam 0.5 Mg Tablet 0.5 Mg PO PRN Q6HRS PRN Travatan Z (Travoprost) 5 Ml Drops 1 Drop OU QHS Lorazepam 0.5 Mg Tablet 0.5 Mg PO BID Donepezil Hcl 10 Mg Tablet 10 Mg PO DAILY Sinemet 25-100 Mg Tablet (Carbidopa/Levodopa) 1 Each Tablet 1 Tab PO TID Aspirin Ec (Aspirin) 81 Mg Tablet.dr 81 Mg PO DAILY Miralax (Polyethylene Glycol 3350) 17 Gm Powd.pack 17 Gm PO PRN DAILY PRN Triamterene-Hctz 37.5-25 Mg Cp (Triamterene/Hydrochlorothiazid) 1 Each Capsule 1 Tab PO DAILY PRN Metoprolol Succinate ( Xl ) (Metoprolol Succinate) 100 Mg Tab.er.24h 100 Mg PO DAILY Bupropion Hcl Sr (Bupropion Hcl) 150 Mg Tablet.er 150 Mg PO BID Citalopram Hbr (Citalopram Hydrobromide) 40 Mg Tablet 40 Mg PO DAILY Fenofibrate 160 Mg Tablet 160 Mg PO DAILY Levothyroxine Sodium 88 Mcg Tablet 88 Mcg PO DAILYAC Nifedipine Er (Nifedipine) 60 Mg Tab.er.24 60 Mg PO DAILY Diagnosis: Problems: (1) Altered mental status (2) Acute adjustment disorder (3) Anxiety disorder (4) Impulse control disorder (5) Dementia, vascular, with depression (6) Dementia, vascular, with delusions (7) Dementia in Alzheimer's disease with depression (8) Dementia in Alzheimer's disease with delusions BHAVNA CAMARA MD August 12, 2016 20:58
--- NOTE | 2016-08-12 23:11 | NUR ---
Behavior Intervention Response and Plan: BIRP Note: Behavior: Assumed Care of patient, patient located in Day Room at shift change. Patient exhibited the following behavior Calm, Sleeping, Cooperative. Brief assessment on rounds of vital signs, medication needs, lab studies, and pain. Treatment plan problems 1 and 2. Intervention: Patient assessed and the following interventions initiated safety checks 15 Minute Checks Cognitive Assessment , Head to toe Assessment , Medications. Response: After interactions and interventions patient responded in the following manner, Calm , Compliant ,Cooperative. Continue to assess behaviors and condition will continue to monitor throughout the shift as needed. Plan: Continue to monitor Master Treatment Plan for patient's progress toward short term goals of Medication Compliance, Improved Mood, snf goals to return to previous living setting vs placement. Continue to assess patient for changes in above assessment. Monitor for medication needs, pain, and safety concerns. Hourly rounding performed to ensure safe environment.
--- NOTE | 2016-08-12 23:41 | PN ---
DATE: 08/11/2016 This late entry for 08/11/2016 covers elements not covered in my initial note. SUBJECTIVE: The patient has done better on 08/11/2016, little more cooperative, certainly very confused. Appetite is a little better. REVIEW OF SYSTEMS: No CV, , pulmonary, eye, ENT system symptoms on review. Reliability poor. She has been ambulating intermittently on her own. I sat and fed her part of her supper and she was cooperative with this. MENTAL STATUS EXAM: Oriented to herself. Insight, judgment, recent and remote memory, attention, concentration, fund of knowledge poor, consistent with her diagnosis mentioned in my initial note. PLAN: Continue psychotropics mentioned in my initial notes. Transition to [facility] this week. MAN Hannah CAMARA MD DR: RYLIE/zunilda JOB#: [id number] / [id number]
[2016-08-13] MEDS: LORazepam 0.5 MG TABLET PO PRN (00:27)
--- NOTE | 2016-08-13 00:30 | NUR ---
Pt agitation escalating at this time. Pt was brought into day room because she no longer wanted to stay in bed. Pt then began to yell at staff, swinging her hand/fist at [employer], and swearing. Several attempts to redirect pt unsuccessful. PRN Ativan administered as ordered at this time.
[2016-08-13 00:48] VITALS: BP 134/61
[2016-08-13] MEDS: LEVOTHYROXINE 88 MCG TABLET PO SCH (04:55)
[2016-08-13 06:48] VITALS: BP 106/68
--- NOTE | 2016-08-13 08:30 | NUR ---
patient remains asleep on couch in dayroom. Saved breakfast tray and will offer when she awakens. Will continue to monitor.
[2016-08-13] MEDS: TIMOLOL 0.5% OPHTH SOLUTION 5ML BOTTLE. OU SCH ×2 (08:58→19:34)
[2016-08-13] MEDS: ASPIRIN ENTERIC COATED 81 MG TABLET.DR. PO SCH (08:58)
[2016-08-13] MEDS: CITALOPRAM 20 MG TABLET. PO SCH (08:58)
[2016-08-13] MEDS: METOPROLOL SUCC 24HR ER 50 MG TAB.ER.24H. PO SCH (08:58)
[2016-08-13] MEDS: DONEPEZIL HCL 10 MG TABLET PO SCH (08:58)
[2016-08-13] MEDS: busPIRone 5 MG TABLET. PO SCH ×2 (08:59→19:35)
[2016-08-13] MEDS: MEMANTINE 5 MG TABLET. PO SCH ×2 (08:59→19:35)
[2016-08-13] MEDS: buPROPion SR 150 MG TABLET.SA PO SCH ×2 (08:59→19:35)
[2016-08-13] MEDS: CARBIDOPA/LEVODOPA 25/100MG TABLET PO SCH ×3 (08:59→19:34)
[2016-08-13] MEDS: FENOFIBRATE NANOCRYSTALLIZED 145 MG TABLET PO SCH (08:59)
--- NOTE | 2016-08-13 11:25 | NUR ---
Behavior Intervention Response and Plan: BIRP Note: Behavior: Assumed Care of patient, patient located in Day Room at shift change. Patient exhibited the following behavior Calm, Drowsy, Sleeping. Brief assessment on rounds of vital signs, medication needs, lab studies, and pain. Treatment plan problems 1 and 2. Intervention: Patient assessed and the following interventions initiated safety checks 15 Minute Checks Cognitive Assessment , Head to toe Assessment , Medications. Response: After interactions and interventions patient responded in the following manner, Calm , Compliant ,Disorganized. Continue to assess behaviors and condition will continue to monitor throughout the shift as needed. Plan: Continue to monitor Master Treatment Plan for patient's progress toward short term goals of Medication Compliance, Decreased Agitation, half-way goals to return to previous living setting vs placement. Continue to assess patient for changes in above assessment. Monitor for medication needs, pain, and safety concerns. Hourly rounding performed to ensure safe environment.
[2016-08-13 15:49] VITALS: BP 104/49
[2016-08-13] MEDS: LATANOPROST 0.005% OPHTH SOLUTION 2.5ML BOTTLE. OU SCH (19:34)
[2016-08-13] MEDS: CYPROHEPTADINE 4 MG TABLET. PO SCH (19:35)
--- NOTE | 2016-08-13 21:57 | PDOC ---
Exam Benson Demential Exam: Benson Note: Please also refer to the separate dictated note~for this date of service dictated separately.~Patient seen individually. Discussed the patient with Nursing staff reviewed the chart.~Reviewed interim history and current functioning. Reviewed vital signs,~Labs/ Radiology~and current medications noted below. Continue current treatment with the changes noted in the dictated addendum note Assessment: Vital Signs: Vital Signs Date Time Temp Pulse Resp B/P (MAP) Pulse Ox O2 Delivery O2 Flow Rate FiO2 08/13/16 15:49 97.3 58 18 104/49 (67) 92 I&O Intake and Output 08/13/16 07:00 Intake Total 840 ml Balance 840 ml Intake Oral 840 ml Current Medications: Meds: Current Medications Sodium Chloride 1,000 ml @ 100 mls/hr Q10H IV Last administered on 07/31/16 19:09; Start 07/31/16 at 19:09; Stop 08/01/16 at 05:08; Status DC Sodium Chloride (Normal Saline Flush) 10 ml QSHIFT PRN IV AFTER MEDS AND BLOOD DRAWS Last administered on 07/31/16 20:05; Start 07/31/16 at 19:15 Acetaminophen (Tylenol) 650 mg PRN Q6HRS PRN PO PAIN / TEMP; Start 08/01/16 at 01:15 Multi-Ingredient Ointment (Analgesic [place]) 1 shadia PRN QID PRN TP MUSCLE PAIN; Start 08/01/16 at 01:15 Al Hydroxide/Mg Hydroxide (Mylanta Plus Xs) 15 ml PRN AFTMEALHC PRN PO DYSPEPSIA; Start 08/01/16 at 01:15 Magnesium Hydroxide (Milk Of Magnesia) 2,400 mg PRN QHS PRN PO CONSTIPATION; Start 08/01/16 at 01:15 Aspirin (Aspirin Enteric Coated) 81 mg DAILY PO Last administered on 08/13/16 08:58; Start 08/01/16 at 09:00 Carbidopa/Levodopa (Sinemet 25/100) 1 tab TID PO Last administered on 19:34; Start 08/01/16 at 09:00 Docusate Sodium (Colace) 100 mg PRN DAILY PRN PO CONSTIPATION Last administered on 08/08/16 08:17; Start 08/01/16 at 01:15 Levothyroxine Sodium (Synthroid) 88 mcg DAILYAC PO Last administered on 07:30; Start 08/01/16 at 07:30; Stop 08/03/16 at 07:43; Status DC Metoprolol Succinate (Toprol Xl) 100 mg DAILY PO Last administered on 08/08/16 08:18; Start 08/01/16 at 09:00; Stop 08/09/16 at 08:05; Status DC Polyethylene Glycol (miraLAX) 17 gm PRN DAILY PRN PO CONSTIPATION; Start at 01:15 Timolol Maleate (Timoptic 0.5% [facility]) 1 drop BID OU Last administered on 19:34; Start 08/01/16 at 09:00 Fenofibrate (Tricor) 145 mg DAILY PO Last administered on 08/13/16 08:59; Start 08/01/16 at 09:00 Nifedipine (Procardia Xl) 60 mg DAILY PO Last administered on 08/07/16 09:00; Start 08/01/16 at 09:00; Stop 08/07/16 at 14:03; Status DC Latanoprost (Xalatan) 1 drop QHS OU Last administered on 08/13/16 19:34; Start 08/01/16 at 21:00 Triamterene/HCTZ (Maxzide 37.5/ 25mg) 1 tab DAILY PO Last administered on 09:00; Start 08/01/16 at 09:00; Stop 08/07/16 at 14:03; Status DC Bupropion HCl (Wellbutrin Sr) 150 mg BID PO Last administered on 08/13/16 19: 35; Start 08/01/16 at 09:00 Donepezil HCl (Aricept) 10 mg DAILY PO Last administered on 08/13/16 08:58; Start 08/01/16 at 09:00 Lorazepam (Ativan) 0.5 mg BID PO Last administered on 08/05/16 10:01; Start at 09:00; Stop 08/05/16 at 19:21; Status DC Lorazepam (Ativan) 0.5 mg PRN Q6HRS PRN PO ANXIETY / AGITATION Last administered on 08/13/16 00:27; Start 08/01/16 at 01:15 Melatonin 3 mg PRN QHS PRN PO INSOMNIA Last administered on 08/12/16 19:23; Start 08/01/16 at 01:15 Citalopram Hydrobromide (Celexa) 40 mg DAILY PO Last administered on 08/02/16 09:39; Start 08/01/16 at 09:00; Stop 08/03/16 at 18:27; Status DC Levothyroxine Sodium (Synthroid) 88 mcg DAILY06 PO Last administered on 04:55; Start 08/04/16 at 06:00 Vitamin D (Vitamin D3) 50,000 unit WEEKLY PO Last administered on 08/11/16 08: 19; Start 08/04/16 at 09:00 Citalopram Hydrobromide (Celexa) 20 mg DAILY PO Last administered on 08/13/16 08:58; Start 08/04/16 at 09:00 Buspirone HCl (Buspar) 5 mg BID PO Last administered on 08/13/16 08:59; Start 08/03/16 at 21:00; Stop 08/13/16 at 18:18; Status DC Memantine (Namenda) 5 mg BID PO Last administered on 08/13/16 19:35; Start 08/04/16 at 21:00 Quetiapine Fumarate (SEROquel) 12.5 mg BID PO Last administered on 08/08/16 08: 18; Start 08/04/16 at 21:00; Stop 08/08/16 at 18:15; Status DC Cyproheptadine HCl (Periactin) 2 mg PRN QHS PRN PO SUPPLEMENT; Start 08/05/16 at 21:00; Stop 08/05/16 at 21:00; Status DC Cyproheptadine HCl (Periactin) 2 mg HS PO Last administered on 08/13/16 19:35 ; Start 08/05/16 at 21:00 Lorazepam (Ativan) 0.25 mg BID PO Last administered on 08/07/16 09:00; Start at 21:00; Stop 08/07/16 at 20:59; Status DC Lorazepam (Ativan) 0.25 mg DAILY PO Last administered on 08/08/16 08:16; Start 08/08/16 at 09:00; Stop 08/09/16 at 21:00; Status DC Metoprolol Succinate (Toprol Xl) 50 mg DAILY PO Last administered on 08/13/16 08:58; Start 08/09/16 at 09:00 Dextrose/Sodium Chloride 500 ml @ 0 mls/hr 1X ONCE IV ; Start 08/09/16 at 08:15 ; Stop 08/09/16 at 18:05; Status DC Dextrose/Sodium Chloride 1,000 ml @ 100 mls/hr Q10H IV ; Start 08/09/16 at 08:15 ; Stop 08/09/16 at 18:05; Status DC Buspirone HCl (Buspar) 5 mg TID PO Last administered on 08/13/16 19:35; Start 08/13/16 at 21:00 Active Scripts Active Reported Timolol Maleate 10 Ml Drops 1 Drop EACHEYE BID Docusate Sodium 100 Mg Capsule 100 Mg PO PRN DAILY PRN Melatonin 3 Mg Tablet 3 Mg PO PRN QHS PRN Lorazepam 0.5 Mg Tablet 0.5 Mg PO PRN Q6HRS PRN Travatan Z (Travoprost) 5 Ml Drops 1 Drop OU QHS Lorazepam 0.5 Mg Tablet 0.5 Mg PO BID Donepezil Hcl 10 Mg Tablet 10 Mg PO DAILY Sinemet 25-100 Mg Tablet (Carbidopa/Levodopa) 1 Each Tablet 1 Tab PO TID Aspirin Ec (Aspirin) 81 Mg Tablet.dr 81 Mg PO DAILY Miralax (Polyethylene Glycol 3350) 17 Gm Powd.pack 17 Gm PO PRN DAILY PRN Triamterene-Hctz 37.5-25 Mg Cp (Triamterene/Hydrochlorothiazid) 1 Each Capsule 1 Tab PO DAILY PRN Metoprolol Succinate ( Xl ) (Metoprolol Succinate) 100 Mg Tab.er.24h 100 Mg PO DAILY Bupropion Hcl Sr (Bupropion Hcl) 150 Mg Tablet.er 150 Mg PO BID Citalopram Hbr (Citalopram Hydrobromide) 40 Mg Tablet 40 Mg PO DAILY Fenofibrate 160 Mg Tablet 160 Mg PO DAILY Levothyroxine Sodium 88 Mcg Tablet 88 Mcg PO DAILYAC Nifedipine Er (Nifedipine) 60 Mg Tab.er.24 60 Mg PO DAILY BHAVNA CAMARA MD August 13, 2016 21:57
--- NOTE | 2016-08-13 23:00 | NUR ---
Behavior Intervention Response and Plan: BIRP Note: Behavior: Assumed Care of patient, patient located in Day Room at shift change. Patient exhibited the following behavior Calm, Disorganized, Cooperative. Brief assessment on rounds of vital signs, medication needs, lab studies, and pain. Treatment plan problems 1 and 2. Intervention: Patient assessed and the following interventions initiated safety checks 15 Minute Checks Cognitive Assessment , Head to toe Assessment , Medications. Response: After interactions and interventions patient responded in the following manner, Calm , Compliant ,Cooperative. Continue to assess behaviors and condition will continue to monitor throughout the shift as needed. 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 Continue to assess patient for changes in above assessment. Monitor for medication needs, pain, and safety concerns. Hourly rounding performed to ensure safe environment.
[2016-08-14] MEDS: LEVOTHYROXINE 88 MCG TABLET PO SCH (05:03)
[2016-08-14 06:12] VITALS: BP 124/59
[2016-08-14] MEDS: busPIRone 5 MG TABLET. PO SCH ×3 (09:07→19:30)
[2016-08-14] MEDS: MEMANTINE 5 MG TABLET. PO SCH ×2 (09:07→19:30)
[2016-08-14] MEDS: ASPIRIN ENTERIC COATED 81 MG TABLET.DR. PO SCH (09:07)
[2016-08-14] MEDS: METOPROLOL SUCC 24HR ER 50 MG TAB.ER.24H. PO SCH (09:08)
[2016-08-14] MEDS: buPROPion SR 150 MG TABLET.SA PO SCH ×2 (09:09→19:30)
[2016-08-14] MEDS: CARBIDOPA/LEVODOPA 25/100MG TABLET PO SCH ×3 (09:09→19:30)
[2016-08-14] MEDS: DONEPEZIL HCL 10 MG TABLET PO SCH (09:09)
[2016-08-14] MEDS: CITALOPRAM 20 MG TABLET. PO SCH (09:09)
[2016-08-14] MEDS: FENOFIBRATE NANOCRYSTALLIZED 145 MG TABLET PO SCH (09:09)
[2016-08-14] MEDS: TIMOLOL 0.5% OPHTH SOLUTION 5ML BOTTLE. OU SCH ×2 (09:10→19:31)
--- NOTE | 2016-08-14 09:41 | PN ---
DATE: 08/12/2016 PSYCHIATRIC PROGRESS NOTE This is late entry for date of service 08/12/2016 and covers elements not covered in my initial note. SUBJECTIVE: Overall, the patient is doing better, ambulating better, attempting to communicate at times, all of which is an improvement, takes her medications with a spoon and some pudding. REVIEW OF SYSTEMS: No CV, , eye, ENT or pulmonary system symptoms on review. Reliability poor. MENTAL STATUS EXAMINATION: Oriented to herself. Insight, judgment, recent and remote memory, attention, concentration, fund of knowledge poor, consistent with her diagnosis, quite pleasant, smiling, verbal with me individually. LABORATORY DATA: Reviewed. IMPRESSION: Unchanged from initial note. PLAN: Continue Wellbutrin, Celexa, Aricept, Ativan p.r.n., melatonin, Namenda, BuSpar and Periactin. Appetite is better as well. BHAVNA CAMARA MD DR: [email or web address]/zunilda JOB#: [id number] / [id number]
--- NOTE | 2016-08-14 10:15 | NUR ---
Behavior Intervention Response and Plan: BIRP Note: Behavior: Assumed Care of patient, patient located in Hallway at shift change. Patient exhibited the following behavior Wandering, Exit Seeking, Disorganized. Brief assessment on rounds of vital signs, medication needs, lab studies, and pain. Treatment plan problems 1 & 2. Intervention: Patient assessed and the following interventions initiated safety checks 15 Minute Checks Cognitive Assessment , Head to toe Assessment , Medications. Response: After interactions and interventions patient responded in the following manner, Calm , Compliant ,Cooperative. Continue to assess behaviors and condition will continue to monitor throughout the shift as needed. Plan: Continue to monitor Master Treatment Plan for patient's progress toward short term goals of Decreased Agitation, Decreased Aggression, intermediate goals to return to previous living setting vs placement. Continue to assess patient for changes in above assessment. Monitor for medication needs, pain, and safety concerns. Hourly rounding performed to ensure safe environment.
--- NOTE | 2016-08-14 10:45 | NUR ---
THERAPEUTIC RECREATION GROUP NOTE TITLE :Balloon Bop with Noodles ACTIVITY : Activities and Games GOAL : Increase socialization and alertness. Maintain/improve mental and physical functioning. DURATION : 60 Minutes RESPONSE : Minimal participation. Pt. walked in and out of group hitting the balloon a few times as she passed by. She had a smile on her face but politely said she had other things to do instead of stay and play. She sat with the group towards the end and always hit the balloon when it went to her.
--- NOTE | 2016-08-14 13:08 | NUR ---
Patient responding to auditory hallucinations, says she is talking to someone on the phone. Will continue to monitor for behaviours.
--- NOTE | 2016-08-14 13:19 | NUR ---
SW spoke with pt son regarding pt. SW provided pt son update, pt son has no other questions at this time. Pt son will be up to visit this weekend per son.
--- NOTE | 2016-08-14 14:00 | NUR ---
THERAPEUTIC RECREATION GROUP NOTE TITLE :[place]/ 21 ACTIVITY : Activities and Games GOAL : Increase social interaction, fine motor skills. Maintain or improve mental functioning. Decrease restlessness DURATION : 60 minutes RESPONSE : No participation.
[2016-08-14 16:14] VITALS: BP 114/56
[2016-08-14] MEDS: CYPROHEPTADINE 4 MG TABLET. PO SCH (19:30)
[2016-08-14] MEDS: LATANOPROST 0.005% OPHTH SOLUTION 2.5ML BOTTLE. OU SCH (19:31)
--- NOTE | 2016-08-14 20:58 | PDOC ---
Exam Benson Demential Exam: Benson Note: Please also refer to the separate dictated note~for this date of service dictated separately.~Patient seen individually. Discussed the patient with Nursing staff reviewed the chart.~Reviewed interim history and current functioning. Reviewed vital signs,~Labs/ Radiology~and current medications noted below. Continue current treatment with the changes noted in the dictated addendum note Assessment: Vital Signs: Vital Signs Date Time Temp Pulse Resp B/P (MAP) Pulse Ox O2 Delivery O2 Flow Rate FiO2 08/14/16 16:14 97.4 59 16 114/56 (75) 94 I&O Intake and Output 08/14/16 07:00 Intake Total 830 ml Balance 830 ml Intake Oral 830 ml Current Medications: Meds: Current Medications Sodium Chloride 1,000 ml @ 100 mls/hr Q10H IV Last administered on 07/31/16 19:09; Start 07/31/16 at 19:09; Stop 08/01/16 at 05:08; Status DC Sodium Chloride (Normal Saline Flush) 10 ml QSHIFT PRN IV AFTER MEDS AND BLOOD DRAWS Last administered on 07/31/16 20:05; Start 07/31/16 at 19:15 Acetaminophen (Tylenol) 650 mg PRN Q6HRS PRN PO PAIN / TEMP; Start 08/01/16 at 01:15 Multi-Ingredient Ointment (Analgesic [place]) 1 shadia PRN QID PRN TP MUSCLE PAIN; Start 08/01/16 at 01:15 Al Hydroxide/Mg Hydroxide (Mylanta Plus Xs) 15 ml PRN AFTMEALHC PRN PO DYSPEPSIA; Start 08/01/16 at 01:15 Magnesium Hydroxide (Milk Of Magnesia) 2,400 mg PRN QHS PRN PO CONSTIPATION; Start 08/01/16 at 01:15 Aspirin (Aspirin Enteric Coated) 81 mg DAILY PO Last administered on 08/14/16 09:07; Start 08/01/16 at 09:00 Carbidopa/Levodopa (Sinemet 25/100) 1 tab TID PO Last administered on 19:30; Start 08/01/16 at 09:00 Docusate Sodium (Colace) 100 mg PRN DAILY PRN PO CONSTIPATION Last administered on 08/08/16 08:17; Start 08/01/16 at 01:15 Levothyroxine Sodium (Synthroid) 88 mcg DAILYAC PO Last administered on 07:30; Start 08/01/16 at 07:30; Stop 08/03/16 at 07:43; Status DC Metoprolol Succinate (Toprol Xl) 100 mg DAILY PO Last administered on 08/08/16 08:18; Start 08/01/16 at 09:00; Stop 08/09/16 at 08:05; Status DC Polyethylene Glycol (miraLAX) 17 gm PRN DAILY PRN PO CONSTIPATION; Start at 01:15 Timolol Maleate (Timoptic 0.5% [facility]) 1 drop BID OU Last administered on 19:31; Start 08/01/16 at 09:00 Fenofibrate (Tricor) 145 mg DAILY PO Last administered on 08/14/16 09:09; Start 08/01/16 at 09:00 Nifedipine (Procardia Xl) 60 mg DAILY PO Last administered on 08/07/16 09:00; Start 08/01/16 at 09:00; Stop 08/07/16 at 14:03; Status DC Latanoprost (Xalatan) 1 drop QHS OU Last administered on 08/14/16 19:31; Start 08/01/16 at 21:00 Triamterene/HCTZ (Maxzide 37.5/ 25mg) 1 tab DAILY PO Last administered on 09:00; Start 08/01/16 at 09:00; Stop 08/07/16 at 14:03; Status DC Bupropion HCl (Wellbutrin Sr) 150 mg BID PO Last administered on 08/14/16 19: 30; Start 08/01/16 at 09:00 Donepezil HCl (Aricept) 10 mg DAILY PO Last administered on 08/14/16 09:09; Start 08/01/16 at 09:00 Lorazepam (Ativan) 0.5 mg BID PO Last administered on 08/05/16 10:01; Start at 09:00; Stop 08/05/16 at 19:21; Status DC Lorazepam (Ativan) 0.5 mg PRN Q6HRS PRN PO ANXIETY / AGITATION Last administered on 08/13/16 00:27; Start 08/01/16 at 01:15 Melatonin 3 mg PRN QHS PRN PO INSOMNIA Last administered on 08/12/16 19:23; Start 08/01/16 at 01:15 Citalopram Hydrobromide (Celexa) 40 mg DAILY PO Last administered on 08/02/16 09:39; Start 08/01/16 at 09:00; Stop 08/03/16 at 18:27; Status DC Levothyroxine Sodium (Synthroid) 88 mcg DAILY06 PO Last administered on 05:03; Start 08/04/16 at 06:00 Vitamin D (Vitamin D3) 50,000 unit WEEKLY PO Last administered on 08/11/16 08: 19; Start 08/04/16 at 09:00 Citalopram Hydrobromide (Celexa) 20 mg DAILY PO Last administered on 08/14/16 09:09; Start 08/04/16 at 09:00 Buspirone HCl (Buspar) 5 mg BID PO Last administered on 08/13/16 08:59; Start 08/03/16 at 21:00; Stop 08/13/16 at 18:18; Status DC Memantine (Namenda) 5 mg BID PO Last administered on 08/14/16 19:30; Start 08/04/16 at 21:00 Quetiapine Fumarate (SEROquel) 12.5 mg BID PO Last administered on 08/08/16 08: 18; Start 08/04/16 at 21:00; Stop 08/08/16 at 18:15; Status DC Cyproheptadine HCl (Periactin) 2 mg PRN QHS PRN PO SUPPLEMENT; Start 08/05/16 at 21:00; Stop 08/05/16 at 21:00; Status DC Cyproheptadine HCl (Periactin) 2 mg HS PO Last administered on 08/14/16 19:30 ; Start 08/05/16 at 21:00 Lorazepam (Ativan) 0.25 mg BID PO Last administered on 08/07/16 09:00; Start at 21:00; Stop 08/07/16 at 20:59; Status DC Lorazepam (Ativan) 0.25 mg DAILY PO Last administered on 08/08/16 08:16; Start 08/08/16 at 09:00; Stop 08/09/16 at 21:00; Status DC Metoprolol Succinate (Toprol Xl) 50 mg DAILY PO Last administered on 08/14/16 09:08; Start 08/09/16 at 09:00 Dextrose/Sodium Chloride 500 ml @ 0 mls/hr 1X ONCE IV ; Start 08/09/16 at 08:15 ; Stop 08/09/16 at 18:05; Status DC Dextrose/Sodium Chloride 1,000 ml @ 100 mls/hr Q10H IV ; Start 08/09/16 at 08:15 ; Stop 08/09/16 at 18:05; Status DC Buspirone HCl (Buspar) 5 mg TID PO Last administered on 08/14/16 19:30; Start 08/13/16 at 21:00 Active Scripts Active Reported Timolol Maleate 10 Ml Drops 1 Drop EACHEYE BID Docusate Sodium 100 Mg Capsule 100 Mg PO PRN DAILY PRN Melatonin 3 Mg Tablet 3 Mg PO PRN QHS PRN Lorazepam 0.5 Mg Tablet 0.5 Mg PO PRN Q6HRS PRN Travatan Z (Travoprost) 5 Ml Drops 1 Drop OU QHS Lorazepam 0.5 Mg Tablet 0.5 Mg PO BID Donepezil Hcl 10 Mg Tablet 10 Mg PO DAILY Sinemet 25-100 Mg Tablet (Carbidopa/Levodopa) 1 Each Tablet 1 Tab PO TID Aspirin Ec (Aspirin) 81 Mg Tablet.dr 81 Mg PO DAILY Miralax (Polyethylene Glycol 3350) 17 Gm Powd.pack 17 Gm PO PRN DAILY PRN Triamterene-Hctz 37.5-25 Mg Cp (Triamterene/Hydrochlorothiazid) 1 Each Capsule 1 Tab PO DAILY PRN Metoprolol Succinate ( Xl ) (Metoprolol Succinate) 100 Mg Tab.er.24h 100 Mg PO DAILY Bupropion Hcl Sr (Bupropion Hcl) 150 Mg Tablet.er 150 Mg PO BID Citalopram Hbr (Citalopram Hydrobromide) 40 Mg Tablet 40 Mg PO DAILY Fenofibrate 160 Mg Tablet 160 Mg PO DAILY Levothyroxine Sodium 88 Mcg Tablet 88 Mcg PO DAILYAC Nifedipine Er (Nifedipine) 60 Mg Tab.er.24 60 Mg PO DAILY BHAVNA CAMARA MD August 14, 2016 20:58
[2016-08-14] MEDS: MELATONIN 3 MG TABLET PO PRN (23:37)
--- NOTE | 2016-08-14 23:50 | NUR ---
Behavior Intervention Response and Plan: BIRP Note: Behavior: Assumed Care of patient, patient located in Patient Room at shift change. Patient exhibited the following behavior Calm, Compliant, Drowsy. Brief assessment on rounds of vital signs, medication needs, lab studies, and pain. Treatment plan problems Dementia with BD and Fall Risk. Intervention: Patient assessed and the following interventions initiated safety checks 15 Minute Checks Cognitive Assessment , Head to toe Assessment , Medications. Response: After interactions and interventions patient responded in the following manner, Calm , Cooperative ,Drowsy. Continue to assess behaviors and condition will continue to monitor throughout the shift as needed. 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 Continue to assess patient for changes in above assessment. Monitor for medication needs, pain, and safety concerns. Hourly rounding performed to ensure safe environment.
[2016-08-15] MEDS: LEVOTHYROXINE 88 MCG TABLET PO SCH (05:55)
[2016-08-15 06:32] VITALS: BP 100/62
[2016-08-15 06:48] LABS: BASO % 0 % (0-3); EOS # 0.1 x10^3/uL (0.0-0.7); EOS % 2 % (0-3); HEMATOCRIT 33.1 % (36.0-47.0); HEMOGLOBIN 10.8 g/dL (12.0-15.5); LYMPH # 2.3 x10^3/uL (1.0-4.8); LYMPH % 32 % (24-48); MEAN CORPUSCULAR HEMOGLOBIN 30 pg (25-35); MEAN CORPUSCULAR HGB CONC 33 g/dL (31-37); MEAN CORPUSCULAR VOLUME 91 fL (79-100); MONO % 13 % (0-9); NEUT # 3.9 x10^3uL (1.8-7.7); NEUT % 53 % (31-73); PLATELET COUNT 254 x10^3/uL (140-400); RED BLOOD COUNT 3.63 x10^6/uL (3.50-5.40); RED CELL DISTRIBUTION WIDTH 14.1 % (11.5-14.5); WHITE BLOOD COUNT 7.3 x10^3/uL (4.0-11.0)
[2016-08-15 07:01] LABS: ALBUMIN 2.4 g/dL (3.4-5.0); ALBUMIN/GLOBULIN RATIO 0.7 (1.0-1.7); CALCIUM 8.5 mg/dL (8.5-10.1); CREATININE 1.5 mg/dL (0.6-1.0); GFR 33.9; POTASSIUM 3.7 mmol/L (3.5-5.1); TOTAL BILIRUBIN 0.6 mg/dL (0.2-1.0); TOTAL PROTEIN 5.7 g/dL (6.4-8.2)
[2016-08-15] MEDS: METOPROLOL SUCC 24HR ER 50 MG TAB.ER.24H. PO SCH (09:00)
[2016-08-15] MEDS: CITALOPRAM 20 MG TABLET. PO SCH (09:28)
[2016-08-15] MEDS: busPIRone 5 MG TABLET. PO SCH ×3 (09:28→20:04)
[2016-08-15] MEDS: ASPIRIN ENTERIC COATED 81 MG TABLET.DR. PO SCH (09:28)
[2016-08-15] MEDS: buPROPion SR 150 MG TABLET.SA PO SCH ×2 (09:28→20:04)
[2016-08-15] MEDS: FENOFIBRATE NANOCRYSTALLIZED 145 MG TABLET PO SCH (09:28)
[2016-08-15] MEDS: DONEPEZIL HCL 10 MG TABLET PO SCH (09:29)
[2016-08-15] MEDS: CARBIDOPA/LEVODOPA 25/100MG TABLET PO SCH ×3 (09:29→20:04)
[2016-08-15] MEDS: MEMANTINE 5 MG TABLET. PO SCH ×2 (09:29→20:04)
[2016-08-15] MEDS: TIMOLOL 0.5% OPHTH SOLUTION 5ML BOTTLE. OU SCH ×2 (09:31→20:05)
--- NOTE | 2016-08-15 10:00 | NUR ---
THERAPEUTIC RECREATION GROUP NOTE TITLE :Characteristics of a M-[id number] ACTIVITY : Cognitive Stimulation GOAL : Stimulate memory, Increase problem solving DURATION : 45 minutes RESPONSE : No participation.
--- NOTE | 2016-08-15 11:30 | NUR ---
THERAPEUTIC RECREATION GROUP NOTE TITLE :Movement to Music: Flexibility ACTIVITY : Movement/ Exercise GOAL : Increase morale, attention, flexibility. Decrease stress/anxiety. DURATION : 25 minutes RESPONSE : No participation.
--- NOTE | 2016-08-15 11:36 | NUR ---
Behavior Intervention Response and Plan: BIRP Note: Behavior: Assumed Care of patient, patient located in Day Room at shift change. Patient exhibited the following behavior Wandering, Disorganized, Compliant. Brief assessment on rounds of vital signs, medication needs, lab studies, and pain. Treatment plan problems . Intervention: Patient assessed and the following interventions initiated safety checks 15 Minute Checks Cognitive Assessment , Head to toe Assessment , Medications. Response: After interactions and interventions patient responded in the following manner, Calm , Compliant ,Cooperative. Continue to assess behaviors and condition will continue to monitor throughout the shift as needed. Plan: Continue to monitor Master Treatment Plan for patient's progress toward short term goals of Decreased Agitation, Decreased Anxiety, snf goals to return to previous living setting vs placement. Continue to assess patient for changes in above assessment. Monitor for medication needs, pain, and safety concerns. Hourly rounding performed to ensure safe environment.
--- NOTE | 2016-08-15 14:45 | NUR ---
THERAPEUTIC RECREATION GROUP NOTE TITLE :Mother's Day Jeopardy ACTIVITY : Cognitive Stimulation GOAL : Stimulate memory, Increase problem solving DURATION : 45 minutes RESPONSE : No participation.
[2016-08-15 15:28] VITALS: BP 122/58
--- NOTE | 2016-08-15 16:00 | NUR ---
CYNTHIA called pt facility, as well as emailed Vicky with her facility regarding discharge plan multiple times. CYNTHIA left messages for [facility] and county administrator regarding pt. At this time CYNTHIA has not heard back from facility.
[2016-08-15] MEDS: CYPROHEPTADINE 4 MG TABLET. PO SCH (20:04)
[2016-08-15] MEDS: LATANOPROST 0.005% OPHTH SOLUTION 2.5ML BOTTLE. OU SCH (20:05)
--- NOTE | 2016-08-15 20:57 | PDOC ---
Exam Benson Demential Exam: Benson Note: Please also refer to the separate dictated note~for this date of service dictated separately.~Patient seen individually. Discussed the patient with Nursing staff reviewed the chart.~Reviewed interim history and current functioning. Reviewed vital signs,~Labs/ Radiology~and current medications noted below. Continue current treatment with the changes noted in the dictated addendum note Assessment: Vital Signs: Vital Signs Date Time Temp Pulse Resp B/P (MAP) Pulse Ox O2 Delivery O2 Flow Rate FiO2 08/15/16 15:28 98.4 63 16 122/58 (79) 94 I&O Intake and Output 08/15/16 07:00 Intake Total 820 ml Balance 820 ml Intake Oral 820 ml Labs: Laboratory Tests Test 08/15/16 06:35 White Blood Count 7.3 x10^3/uL (4.0-11.0) Red Blood Count 3.63 x10^6/uL (3.50-5.40) Hemoglobin 10.8 g/dL (12.0-15.5) L Hematocrit 33.1 % (36.0-47.0) L Mean Corpuscular Volume 91 fL (79-100) Mean Corpuscular Hemoglobin 30 pg (25-35) Mean Corpuscular Hemoglobin Concent 33 g/dL (31-37) Red Cell Distribution Width 14.1 % (11.5-14.5) Platelet Count 254 x10^3/uL (140-400) Neutrophils (%) (Auto) 53 % (31-73) Lymphocytes (%) (Auto) 32 % (24-48) Monocytes (%) (Auto) 13 % (0-9) H Eosinophils (%) (Auto) 2 % (0-3) Basophils (%) (Auto) 0 % (0-3) Neutrophils # (Auto) 3.9 x10^3uL (1.8-7.7) Lymphocytes # (Auto) 2.3 x10^3/uL (1.0-4.8) Monocytes # (Auto) 1.0 x10^3/uL (0.0-1.1) Eosinophils # (Auto) 0.1 x10^3/uL (0.0-0.7) Basophils # (Auto) 0.0 x10^3/uL (0.0-0.2) Sodium Level 141 mmol/L (136-145) Potassium Level 3.7 mmol/L (3.5-5.1) Chloride Level 105 mmol/L (98-107) Carbon Dioxide Level 32 mmol/L (21-32) Anion Gap 4 (6-14) L Blood Urea Nitrogen 43 mg/dL (7-20) H Creatinine 1.5 mg/dL (0.6-1.0) H Estimated GFR (Cockcroft-Gault) 33.9 BUN/Creatinine Ratio 29 (6-20) H Glucose Level 80 mg/dL (70-99) Calcium Level 8.5 mg/dL (8.5-10.1) Magnesium Level 1.8 mg/dL (1.8-2.4) Total Bilirubin 0.6 mg/dL (0.2-1.0) Aspartate Amino Transferase (AST) 91 U/L (15-37) H Alanine Aminotransferase (ALT) 37 U/L (14-59) Alkaline Phosphatase 31 U/L (46-116) L Total Protein 5.7 g/dL (6.4-8.2) L Albumin 2.4 g/dL (3.4-5.0) L Albumin/Globulin Ratio 0.7 (1.0-1.7) L Current Medications: Meds: Current Medications Sodium Chloride 1,000 ml @ 100 mls/hr Q10H IV Last administered on 07/31/16 19:09; Start 07/31/16 at 19:09; Stop 08/01/16 at 05:08; Status DC Sodium Chloride (Normal Saline Flush) 10 ml QSHIFT PRN IV AFTER MEDS AND BLOOD DRAWS Last administered on 07/31/16 20:05; Start 07/31/16 at 19:15 Acetaminophen (Tylenol) 650 mg PRN Q6HRS PRN PO PAIN / TEMP; Start 08/01/16 at 01:15 Multi-Ingredient Ointment (Analgesic [place]) 1 shadia PRN QID PRN TP MUSCLE PAIN; Start 08/01/16 at 01:15 Al Hydroxide/Mg Hydroxide (Mylanta Plus Xs) 15 ml PRN AFTMEALHC PRN PO DYSPEPSIA; Start 08/01/16 at 01:15 Magnesium Hydroxide (Milk Of Magnesia) 2,400 mg PRN QHS PRN PO CONSTIPATION; Start 08/01/16 at 01:15 Aspirin (Aspirin Enteric Coated) 81 mg DAILY PO Last administered on 08/15/16 09:28; Start 08/01/16 at 09:00 Carbidopa/Levodopa (Sinemet 25/100) 1 tab TID PO Last administered on 20:04; Start 08/01/16 at 09:00 Docusate Sodium (Colace) 100 mg PRN DAILY PRN PO CONSTIPATION Last administered on 08/08/16 08:17; Start 08/01/16 at 01:15 Levothyroxine Sodium (Synthroid) 88 mcg DAILYAC PO Last administered on 07:30; Start 08/01/16 at 07:30; Stop 08/03/16 at 07:43; Status DC Metoprolol Succinate (Toprol Xl) 100 mg DAILY PO Last administered on 08/08/16 08:18; Start 08/01/16 at 09:00; Stop 08/09/16 at 08:05; Status DC Polyethylene Glycol (miraLAX) 17 gm PRN DAILY PRN PO CONSTIPATION; Start at 01:15 Timolol Maleate (Timoptic 0.5% [facility]) 1 drop BID OU Last administered on 20:05; Start 08/01/16 at 09:00 Fenofibrate (Tricor) 145 mg DAILY PO Last administered on 08/15/16 09:28; Start 08/01/16 at 09:00 Nifedipine (Procardia Xl) 60 mg DAILY PO Last administered on 08/07/16 09:00; Start 08/01/16 at 09:00; Stop 08/07/16 at 14:03; Status DC Latanoprost (Xalatan) 1 drop QHS OU Last administered on 08/15/16 20:05; Start 08/01/16 at 21:00 Triamterene/HCTZ (Maxzide 37.5/ 25mg) 1 tab DAILY PO Last administered on 09:00; Start 08/01/16 at 09:00; Stop 08/07/16 at 14:03; Status DC Bupropion HCl (Wellbutrin Sr) 150 mg BID PO Last administered on 08/15/16 20: 04; Start 08/01/16 at 09:00 Donepezil HCl (Aricept) 10 mg DAILY PO Last administered on 08/15/16 09:29; Start 08/01/16 at 09:00 Lorazepam (Ativan) 0.5 mg BID PO Last administered on 08/05/16 10:01; Start at 09:00; Stop 08/05/16 at 19:21; Status DC Lorazepam (Ativan) 0.5 mg PRN Q6HRS PRN PO ANXIETY / AGITATION Last administered on 08/13/16 00:27; Start 08/01/16 at 01:15 Melatonin 3 mg PRN QHS PRN PO INSOMNIA Last administered on 08/14/16 23:37; Start 08/01/16 at 01:15 Citalopram Hydrobromide (Celexa) 40 mg DAILY PO Last administered on 08/02/16 09:39; Start 08/01/16 at 09:00; Stop 08/03/16 at 18:27; Status DC Levothyroxine Sodium (Synthroid) 88 mcg DAILY06 PO Last administered on 05:55; Start 08/04/16 at 06:00 Vitamin D (Vitamin D3) 50,000 unit WEEKLY PO Last administered on 08/11/16 08: 19; Start 08/04/16 at 09:00 Citalopram Hydrobromide (Celexa) 20 mg DAILY PO Last administered on 08/15/16 09:28; Start 08/04/16 at 09:00 Buspirone HCl (Buspar) 5 mg BID PO Last administered on 08/13/16 08:59; Start 08/03/16 at 21:00; Stop 08/13/16 at 18:18; Status DC Memantine (Namenda) 5 mg BID PO Last administered on 08/15/16 20:04; Start 08/04/16 at 21:00 Quetiapine Fumarate (SEROquel) 12.5 mg BID PO Last administered on 08/08/16 08: 18; Start 08/04/16 at 21:00; Stop 08/08/16 at 18:15; Status DC Cyproheptadine HCl (Periactin) 2 mg PRN QHS PRN PO SUPPLEMENT; Start 08/05/16 at 21:00; Stop 08/05/16 at 21:00; Status DC Cyproheptadine HCl (Periactin) 2 mg HS PO Last administered on 08/15/16 20:04 ; Start 08/05/16 at 21:00 Lorazepam (Ativan) 0.25 mg BID PO Last administered on 08/07/16 09:00; Start at 21:00; Stop 08/07/16 at 20:59; Status DC Lorazepam (Ativan) 0.25 mg DAILY PO Last administered on 08/08/16 08:16; Start 08/08/16 at 09:00; Stop 08/09/16 at 21:00; Status DC Metoprolol Succinate (Toprol Xl) 50 mg DAILY PO Last administered on 08/14/16 09:08; Start 08/09/16 at 09:00 Dextrose/Sodium Chloride 500 ml @ 0 mls/hr 1X ONCE IV ; Start 08/09/16 at 08:15 ; Stop 08/09/16 at 18:05; Status DC Dextrose/Sodium Chloride 1,000 ml @ 100 mls/hr Q10H IV ; Start 08/09/16 at 08:15 ; Stop 08/09/16 at 18:05; Status DC Buspirone HCl (Buspar) 5 mg TID PO Last administered on 08/15/16 20:04; Start 08/13/16 at 21:00 Active Scripts Active Reported Timolol Maleate 10 Ml Drops 1 Drop EACHEYE BID Docusate Sodium 100 Mg Capsule 100 Mg PO PRN DAILY PRN Melatonin 3 Mg Tablet 3 Mg PO PRN QHS PRN Lorazepam 0.5 Mg Tablet 0.5 Mg PO PRN Q6HRS PRN Travatan Z (Travoprost) 5 Ml Drops 1 Drop OU QHS Lorazepam 0.5 Mg Tablet 0.5 Mg PO BID Donepezil Hcl 10 Mg Tablet 10 Mg PO DAILY Sinemet 25-100 Mg Tablet (Carbidopa/Levodopa) 1 Each Tablet 1 Tab PO TID Aspirin Ec (Aspirin) 81 Mg Tablet.dr 81 Mg PO DAILY Miralax (Polyethylene Glycol 3350) 17 Gm Powd.pack 17 Gm PO PRN DAILY PRN Triamterene-Hctz 37.5-25 Mg Cp (Triamterene/Hydrochlorothiazid) 1 Each Capsule 1 Tab PO DAILY PRN Metoprolol Succinate ( Xl ) (Metoprolol Succinate) 100 Mg Tab.er.24h 100 Mg PO DAILY Bupropion Hcl Sr (Bupropion Hcl) 150 Mg Tablet.er 150 Mg PO BID Citalopram Hbr (Citalopram Hydrobromide) 40 Mg Tablet 40 Mg PO DAILY Fenofibrate 160 Mg Tablet 160 Mg PO DAILY Levothyroxine Sodium 88 Mcg Tablet 88 Mcg PO DAILYAC Nifedipine Er (Nifedipine) 60 Mg Tab.er.24 60 Mg PO DAILY BHAVNA CAMARA MD August 15, 2016 20:57
--- NOTE | 2016-08-16 04:17 | NUR ---
Behavior Intervention Response and Plan: BIRP Note: Behavior: Assumed Care of patient, patient located in Patient Room at shift change. Patient exhibited the following behavior Calm, Compliant, Drowsy. Brief assessment on rounds of vital signs, medication needs, lab studies, and pain. Treatment plan problems Dementia with BD and Fall Risk. Intervention: Patient assessed and the following interventions initiated safety checks 15 Minute Checks Cognitive Assessment , Head to toe Assessment , Medications. Response: After interactions and interventions patient responded in the following manner, Calm , Cooperative ,Drowsy. Continue to assess behaviors and condition will continue to monitor throughout the shift as needed. Plan: Continue to monitor Master Treatment Plan for patient's progress toward short term goals of Decreased Agitation, Decreased Aggression, joint terminal attack controller goals to return to previous living setting vs placement. Continue to assess patient for changes in above assessment. Monitor for medication needs, pain, and safety concerns. Hourly rounding performed to ensure safe environment.
[2016-08-16] MEDS: LEVOTHYROXINE 88 MCG TABLET PO SCH (05:56)
[2016-08-16 06:19] VITALS: BP 117/47
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
--- NOTE | 2016-08-16 07:47 | PN ---
DATE: 08/14/2016 PSYCHIATRIC PROGRESS NOTE This is late entry of 08/14/2016, covers elements not covered in my initial note. SUBJECTIVE: The patient was staffed at treatment team meeting with the entire team and then seen individually. She slept 6-1/2 hours, was feeding herself better on 08/14/2016. Previous evening, she seemed to have some hallucinations, was wandering, confused, better during the day on 08/14/2016. REVIEW OF SYSTEMS: No CV, , pulmonary, eye, ENT system symptoms on review. Reliability poor. MENTAL STATUS EXAMINATION: Oriented to herself. Insight, judgment, recent and remote memory, attention, concentration, fund of knowledge poor, consistent with her diagnosis mentioned in my initial note. IMPRESSION: Major neurocognitive disorder, Lewy body, Alzheimer, vascular with depression, delusion, behavioral disturbance. Rest diagnoses unchanged. PLAN: Continue current psychotropics including Periactin 2 mg at bedtime to stimulate her appetite, adjust as clinically indicated. MAN Hannah CAMARA MD DR: RYLIE/zunilda JOB#: [id number] / [id number]
[2016-08-16] MEDS: METOPROLOL SUCC 24HR ER 50 MG TAB.ER.24H. PO SCH (09:00)
[2016-08-16] MEDS: TIMOLOL 0.5% OPHTH SOLUTION 5ML BOTTLE. OU SCH ×2 (09:00→20:05)
[2016-08-16] MEDS: CITALOPRAM 20 MG TABLET. PO SCH (09:30)
[2016-08-16] MEDS: ASPIRIN ENTERIC COATED 81 MG TABLET.DR. PO SCH (09:30)
[2016-08-16] MEDS: buPROPion SR 150 MG TABLET.SA PO SCH ×2 (09:30→20:03)
[2016-08-16] MEDS: DONEPEZIL HCL 10 MG TABLET PO SCH (09:30)
[2016-08-16] MEDS: MEMANTINE 5 MG TABLET. PO SCH ×2 (09:30→20:03)
[2016-08-16] MEDS: FENOFIBRATE NANOCRYSTALLIZED 145 MG TABLET PO SCH (09:30)
[2016-08-16] MEDS: CARBIDOPA/LEVODOPA 25/100MG TABLET PO SCH ×3 (09:30→20:03)
[2016-08-16] MEDS: busPIRone 5 MG TABLET. PO SCH ×3 (09:31→20:04)
--- NOTE | 2016-08-16 10:07 | NUR ---
Behavior Intervention Response and Plan: BIRP Note: Behavior: Assumed Care of patient, patient located in Patient Room at shift change. Patient exhibited the following behavior Compliant, Drowsy, Withdrawn. Brief assessment on rounds of vital signs, medication needs, lab studies, and pain. Treatment plan problems . Intervention: Patient assessed and the following interventions initiated safety checks 15 Minute Checks Cognitive Assessment , Head to toe Assessment , Medications. Response: After interactions and interventions patient responded in the following manner, Calm , Compliant ,Cooperative. Continue to assess behaviors and condition will continue to monitor throughout the shift as needed. Plan: Continue to monitor Master Treatment Plan for patient's progress toward short term goals of Decreased Anxiety, Medication Compliance, skilled nursing goals to return to previous living setting vs placement. Continue to assess patient for changes in above assessment. Monitor for medication needs, pain, and safety concerns. Hourly rounding performed to ensure safe environment.
[2016-08-16 15:56] VITALS: BP 104/55
--- NOTE | 2016-08-16 17:10 | NUR ---
Patient had an episode of syncope in hallway while ambulating to dining room from day room. Patient fainted, but caught by staff member who was able to assist her to a chair. BP: 121/50 sitting and 80/40 while standing. Pupils equal and responsive to light, hand grasps strong and equal, denies chest pain, heart sounds regular, patient is alert and responding to questions, although she is keeping her eyes closed. Patient transferred to w/c and taken to dining room to eat dinner, will push fluids and continue to monitor.
[2016-08-16] MEDS: CYPROHEPTADINE 4 MG TABLET. PO SCH (20:04)
[2016-08-16] MEDS: LATANOPROST 0.005% OPHTH SOLUTION 2.5ML BOTTLE. OU SCH (20:05)
--- NOTE | 2016-08-16 20:44 | PDOC ---
Exam Benson Demential Exam: Benson Note: Please also refer to the separate dictated note~for this date of service dictated separately.~Patient seen individually. Discussed the patient with Nursing staff reviewed the chart.~Reviewed interim history and current functioning. Reviewed vital signs,~Labs/ Radiology~and current medications noted below. Continue current treatment with the changes noted in the dictated addendum note Assessment: Vital Signs: Vital Signs Date Time Temp Pulse Resp B/P (MAP) Pulse Ox O2 Delivery O2 Flow Rate FiO2 08/16/16 15:56 98.3 75 16 104/55 (71) 99 I&O Intake and Output 08/16/16 07:00 Intake Total 960 ml Balance 960 ml Intake Oral 960 ml # Voids 1 Current Medications: Meds: Current Medications Sodium Chloride 1,000 ml @ 100 mls/hr Q10H IV Last administered on 07/31/16 19:09; Start 07/31/16 at 19:09; Stop 08/01/16 at 05:08; Status DC Sodium Chloride (Normal Saline Flush) 10 ml QSHIFT PRN IV AFTER MEDS AND BLOOD DRAWS Last administered on 07/31/16 20:05; Start 07/31/16 at 19:15 Acetaminophen (Tylenol) 650 mg PRN Q6HRS PRN PO PAIN / TEMP; Start 08/01/16 at 01:15 Multi-Ingredient Ointment (Analgesic [place]) 1 shadia PRN QID PRN TP MUSCLE PAIN; Start 08/01/16 at 01:15 Al Hydroxide/Mg Hydroxide (Mylanta Plus Xs) 15 ml PRN AFTMEALHC PRN PO DYSPEPSIA; Start 08/01/16 at 01:15 Magnesium Hydroxide (Milk Of Magnesia) 2,400 mg PRN QHS PRN PO CONSTIPATION; Start 08/01/16 at 01:15 Aspirin (Aspirin Enteric Coated) 81 mg DAILY PO Last administered on 08/16/16 09:30; Start 08/01/16 at 09:00 Carbidopa/Levodopa (Sinemet 25/100) 1 tab TID PO Last administered on 20:03; Start 08/01/16 at 09:00 Docusate Sodium (Colace) 100 mg PRN DAILY PRN PO CONSTIPATION Last administered on 08/08/16 08:17; Start 08/01/16 at 01:15 Levothyroxine Sodium (Synthroid) 88 mcg DAILYAC PO Last administered on 07:30; Start 08/01/16 at 07:30; Stop 08/03/16 at 07:43; Status DC Metoprolol Succinate (Toprol Xl) 100 mg DAILY PO Last administered on 08/08/16 08:18; Start 08/01/16 at 09:00; Stop 08/09/16 at 08:05; Status DC Polyethylene Glycol (miraLAX) 17 gm PRN DAILY PRN PO CONSTIPATION; Start at 01:15 Timolol Maleate (Timoptic 0.5% [facility]) 1 drop BID OU Last administered on 20:05; Start 08/01/16 at 09:00 Fenofibrate (Tricor) 145 mg DAILY PO Last administered on 08/16/16 09:30; Start 08/01/16 at 09:00 Nifedipine (Procardia Xl) 60 mg DAILY PO Last administered on 08/07/16 09:00; Start 08/01/16 at 09:00; Stop 08/07/16 at 14:03; Status DC Latanoprost (Xalatan) 1 drop QHS OU Last administered on 08/16/16 20:05; Start 08/01/16 at 21:00 Triamterene/HCTZ (Maxzide 37.5/ 25mg) 1 tab DAILY PO Last administered on 09:00; Start 08/01/16 at 09:00; Stop 08/07/16 at 14:03; Status DC Bupropion HCl (Wellbutrin Sr) 150 mg BID PO Last administered on 08/16/16 20: 03; Start 08/01/16 at 09:00 Donepezil HCl (Aricept) 10 mg DAILY PO Last administered on 08/16/16 09:30; Start 08/01/16 at 09:00 Lorazepam (Ativan) 0.5 mg BID PO Last administered on 08/05/16 10:01; Start at 09:00; Stop 08/05/16 at 19:21; Status DC Lorazepam (Ativan) 0.5 mg PRN Q6HRS PRN PO ANXIETY / AGITATION Last administered on 08/13/16 00:27; Start 08/01/16 at 01:15 Melatonin 3 mg PRN QHS PRN PO INSOMNIA Last administered on 08/14/16 23:37; Start 08/01/16 at 01:15 Citalopram Hydrobromide (Celexa) 40 mg DAILY PO Last administered on 08/02/16 09:39; Start 08/01/16 at 09:00; Stop 08/03/16 at 18:27; Status DC Levothyroxine Sodium (Synthroid) 88 mcg DAILY06 PO Last administered on 05:56; Start 08/04/16 at 06:00 Vitamin D (Vitamin D3) 50,000 unit WEEKLY PO Last administered on 08/11/16 08: 19; Start 08/04/16 at 09:00 Citalopram Hydrobromide (Celexa) 20 mg DAILY PO Last administered on 08/16/16 09:30; Start 08/04/16 at 09:00 Buspirone HCl (Buspar) 5 mg BID PO Last administered on 08/13/16 08:59; Start 08/03/16 at 21:00; Stop 08/13/16 at 18:18; Status DC Memantine (Namenda) 5 mg BID PO Last administered on 08/16/16 20:03; Start 08/04/16 at 21:00 Quetiapine Fumarate (SEROquel) 12.5 mg BID PO Last administered on 08/08/16 08: 18; Start 08/04/16 at 21:00; Stop 08/08/16 at 18:15; Status DC Cyproheptadine HCl (Periactin) 2 mg PRN QHS PRN PO SUPPLEMENT; Start 08/05/16 at 21:00; Stop 08/05/16 at 21:00; Status DC Cyproheptadine HCl (Periactin) 2 mg HS PO Last administered on 08/16/16 20:04 ; Start 08/05/16 at 21:00 Lorazepam (Ativan) 0.25 mg BID PO Last administered on 08/07/16 09:00; Start at 21:00; Stop 08/07/16 at 20:59; Status DC Lorazepam (Ativan) 0.25 mg DAILY PO Last administered on 08/08/16 08:16; Start 08/08/16 at 09:00; Stop 08/09/16 at 21:00; Status DC Metoprolol Succinate (Toprol Xl) 50 mg DAILY PO Last administered on 08/14/16 09:08; Start 08/09/16 at 09:00 Dextrose/Sodium Chloride 500 ml @ 0 mls/hr 1X ONCE IV ; Start 08/09/16 at 08:15 ; Stop 08/09/16 at 18:05; Status DC Dextrose/Sodium Chloride 1,000 ml @ 100 mls/hr Q10H IV ; Start 08/09/16 at 08:15 ; Stop 08/09/16 at 18:05; Status DC Buspirone HCl (Buspar) 5 mg TID PO Last administered on 08/16/16 20:04; Start 08/13/16 at 21:00 Active Scripts Active Reported Timolol Maleate 10 Ml Drops 1 Drop EACHEYE BID Docusate Sodium 100 Mg Capsule 100 Mg PO PRN DAILY PRN Melatonin 3 Mg Tablet 3 Mg PO PRN QHS PRN Lorazepam 0.5 Mg Tablet 0.5 Mg PO PRN Q6HRS PRN Travatan Z (Travoprost) 5 Ml Drops 1 Drop OU QHS Lorazepam 0.5 Mg Tablet 0.5 Mg PO BID Donepezil Hcl 10 Mg Tablet 10 Mg PO DAILY Sinemet 25-100 Mg Tablet (Carbidopa/Levodopa) 1 Each Tablet 1 Tab PO TID Aspirin Ec (Aspirin) 81 Mg Tablet.dr 81 Mg PO DAILY Miralax (Polyethylene Glycol 3350) 17 Gm Powd.pack 17 Gm PO PRN DAILY PRN Triamterene-Hctz 37.5-25 Mg Cp (Triamterene/Hydrochlorothiazid) 1 Each Capsule 1 Tab PO DAILY PRN Metoprolol Succinate ( Xl ) (Metoprolol Succinate) 100 Mg Tab.er.24h 100 Mg PO DAILY Bupropion Hcl Sr (Bupropion Hcl) 150 Mg Tablet.er 150 Mg PO BID Citalopram Hbr (Citalopram Hydrobromide) 40 Mg Tablet 40 Mg PO DAILY Fenofibrate 160 Mg Tablet 160 Mg PO DAILY Levothyroxine Sodium 88 Mcg Tablet 88 Mcg PO DAILYAC Nifedipine Er (Nifedipine) 60 Mg Tab.er.24 60 Mg PO DAILY Diagnosis: Problems: (1) Acute adjustment disorder (2) Anxiety disorder (3) Impulse control disorder (4) Dementia, vascular, with depression (5) Dementia, vascular, with delusions (6) Dementia in Alzheimer's disease with depression (7) Dementia in Alzheimer's disease with delusions BHAVNA CAMARA MD August 16, 2016 20:44
[2016-08-17] MEDS: LORazepam 0.5 MG TABLET PO PRN (01:25)
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
--- NOTE | 2016-08-17 01:40 | NUR ---
Behavior Intervention Response and Plan: BIRP Note: Behavior: Assumed Care of patient, patient located in Hallway at shift change. Patient exhibited the following behavior Wandering, Disorganized, Defensive. Brief assessment on rounds of vital signs, medication needs, lab studies, and pain. Treatment plan problems . Intervention: Patient assessed and the following interventions initiated safety checks 15 Minute Checks Call rivera in reach. Response: After interactions and interventions patient responded in the following manner, Wandering , Resistive ,Agitated. Continue to assess behaviors and condition will continue to monitor throughout the shift as needed. Plan: Continue to monitor Master Treatment Plan for patient's progress toward short term goals of Decreased Agitation, Decreased Anxiety, correction goals to return to previous living setting vs placement. Continue to assess patient for changes in above assessment. Monitor for medication needs, pain, and safety concerns. Hourly rounding performed to ensure safe environment.
--- NOTE | 2016-08-17 01:44 | PN ---
DATE: 08/15/2016 This is a late entry for 08/15/2016 covers elements not covered in my initial note. SUBJECTIVE: The patient remains confused and restless the previous night, received melatonin p.r.n. then did well, takes her medications whole. Appetite is better. REVIEW OF SYSTEMS: No CV, , pulmonary, eye, ENT system symptoms on review. Reliability poor. MENTAL STATUS EXAM: Oriented to herself. Insight, judgment, recent and remote memory, attention, concentration, fund of knowledge poor, consistent with her diagnosis. IMPRESSION: Major neurocognitive disorder, Lewy body, Alzheimer, vascular with depression, delusion, behavioral disturbance. Rest unchanged. PLAN: Continue current psychotropics. Adjust further as clinically indicated. MAN Hannah CAMARA MD DR: RYLIE/zunilda JOB#: [id number] / [id number]
[2016-08-17] MEDS: LEVOTHYROXINE 88 MCG TABLET PO SCH (05:42)
[2016-08-17 06:28] VITALS: BP 110/57
[2016-08-17] MEDS: METOPROLOL SUCC 24HR ER 50 MG TAB.ER.24H. PO SCH (09:00)
[2016-08-17] MEDS: DONEPEZIL HCL 10 MG TABLET PO SCH (09:21)
[2016-08-17] MEDS: busPIRone 5 MG TABLET. PO SCH ×3 (09:21→19:37)
[2016-08-17] MEDS: MEMANTINE 5 MG TABLET. PO SCH ×2 (09:21→19:38)
[2016-08-17] MEDS: ASPIRIN ENTERIC COATED 81 MG TABLET.DR. PO SCH (09:21)
[2016-08-17] MEDS: FENOFIBRATE NANOCRYSTALLIZED 145 MG TABLET PO SCH (09:21)
[2016-08-17] MEDS: TIMOLOL 0.5% OPHTH SOLUTION 5ML BOTTLE. OU SCH ×2 (09:21→19:38)
[2016-08-17] MEDS: CITALOPRAM 20 MG TABLET. PO SCH (09:22)
[2016-08-17] MEDS: buPROPion SR 150 MG TABLET.SA PO SCH ×2 (09:22→19:37)
[2016-08-17] MEDS: CARBIDOPA/LEVODOPA 25/100MG TABLET PO SCH ×3 (09:22→19:38)
--- NOTE | 2016-08-17 11:40 | NUR ---
Behavior Intervention Response and Plan: BIRP Note: Behavior: Assumed Care of patient, patient located in Patient Room at shift change. Patient exhibited the following behavior Calm, Disorganized, Cooperative. Brief assessment on rounds of vital signs, medication needs, lab studies, and pain. Treatment plan problems 1 & 2. Intervention: Patient assessed and the following interventions initiated safety checks 15 Minute Checks Cognitive Assessment , Head to toe Assessment , Oral Hydration. Response: After interactions and interventions patient responded in the following manner, Calm , Appropriate ,Cooperative. Continue to assess behaviors and condition will continue to monitor throughout the shift as needed. Plan: Continue to monitor Master Treatment Plan for patient's progress toward short term goals of Decreased Agitation, Decreased Anxiety, half-way goals to return to previous living setting vs placement. Continue to assess patient for changes in above assessment. Monitor for medication needs, pain, and safety concerns. Hourly rounding performed to ensure safe environment.
[2016-08-17 16:15] VITALS: BP 135/57
[2016-08-17] MEDS: CYPROHEPTADINE 4 MG TABLET. PO SCH (19:37)
[2016-08-17] MEDS: LATANOPROST 0.005% OPHTH SOLUTION 2.5ML BOTTLE. OU SCH (19:40)
--- NOTE | 2016-08-17 20:04 | PDOC ---
Exam Benson Demential Exam: Benson Note: Please also refer to the separate dictated note~for this date of service dictated separately.~Patient seen individually. Discussed the patient with Nursing staff reviewed the chart.~Reviewed interim history and current functioning. Reviewed vital signs,~Labs/ Radiology~and current medications noted below. Continue current treatment with the changes noted in the dictated addendum note Assessment: Vital Signs: Vital Signs Date Time Temp Pulse Resp B/P (MAP) Pulse Ox O2 Delivery O2 Flow Rate FiO2 08/17/16 16:15 97.1 81 20 135/57 (83) 97 I&O Intake and Output 08/17/16 07:00 Intake Total 220 ml Balance 220 ml Intake Oral 220 ml # Voids 1 Current Medications: Meds: Current Medications Sodium Chloride 1,000 ml @ 100 mls/hr Q10H IV Last administered on 07/31/16 19:09; Start 07/31/16 at 19:09; Stop 08/01/16 at 05:08; Status DC Sodium Chloride (Normal Saline Flush) 10 ml QSHIFT PRN IV AFTER MEDS AND BLOOD DRAWS Last administered on 07/31/16 20:05; Start 07/31/16 at 19:15; Stop at 11:51; Status DC Acetaminophen (Tylenol) 650 mg PRN Q6HRS PRN PO PAIN / TEMP; Start 08/01/16 at 01:15 Multi-Ingredient Ointment (Analgesic [place]) 1 shadia PRN QID PRN TP MUSCLE PAIN; Start 08/01/16 at 01:15 Al Hydroxide/Mg Hydroxide (Mylanta Plus Xs) 15 ml PRN AFTMEALHC PRN PO DYSPEPSIA; Start 08/01/16 at 01:15 Magnesium Hydroxide (Milk Of Magnesia) 2,400 mg PRN QHS PRN PO CONSTIPATION Last administered on 08/17/16 17:08; Start 08/01/16 at 01:15 Aspirin (Aspirin Enteric Coated) 81 mg DAILY PO Last administered on 08/17/16 09:21; Start 08/01/16 at 09:00 Carbidopa/Levodopa (Sinemet 25/100) 1 tab TID PO Last administered on 19:38; Start 08/01/16 at 09:00 Docusate Sodium (Colace) 100 mg PRN DAILY PRN PO CONSTIPATION Last administered on 08/08/16 08:17; Start 08/01/16 at 01:15 Levothyroxine Sodium (Synthroid) 88 mcg DAILYAC PO Last administered on 07:30; Start 08/01/16 at 07:30; Stop 08/03/16 at 07:43; Status DC Metoprolol Succinate (Toprol Xl) 100 mg DAILY PO Last administered on 08/08/16 08:18; Start 08/01/16 at 09:00; Stop 08/09/16 at 08:05; Status DC Polyethylene Glycol (miraLAX) 17 gm PRN DAILY PRN PO CONSTIPATION; Start at 01:15 Timolol Maleate (Timoptic 0.5% [facility]) 1 drop BID OU Last administered on 19:38; Start 08/01/16 at 09:00 Fenofibrate (Tricor) 145 mg DAILY PO Last administered on 08/17/16 09:21; Start 08/01/16 at 09:00 Nifedipine (Procardia Xl) 60 mg DAILY PO Last administered on 08/07/16 09:00; Start 08/01/16 at 09:00; Stop 08/07/16 at 14:03; Status DC Latanoprost (Xalatan) 1 drop QHS OU Last administered on 08/17/16 19:40; Start 08/01/16 at 21:00 Triamterene/HCTZ (Maxzide 37.5/ 25mg) 1 tab DAILY PO Last administered on 09:00; Start 08/01/16 at 09:00; Stop 08/07/16 at 14:03; Status DC Bupropion HCl (Wellbutrin Sr) 150 mg BID PO Last administered on 08/17/16 19: 37; Start 08/01/16 at 09:00 Donepezil HCl (Aricept) 10 mg DAILY PO Last administered on 08/17/16 09:21; Start 08/01/16 at 09:00 Lorazepam (Ativan) 0.5 mg BID PO Last administered on 08/05/16 10:01; Start at 09:00; Stop 08/05/16 at 19:21; Status DC Lorazepam (Ativan) 0.5 mg PRN Q6HRS PRN PO ANXIETY / AGITATION Last administered on 08/17/16 01:25; Start 08/01/16 at 01:15 Melatonin 3 mg PRN QHS PRN PO INSOMNIA Last administered on 08/14/16 23:37; Start 08/01/16 at 01:15 Citalopram Hydrobromide (Celexa) 40 mg DAILY PO Last administered on 08/02/16 09:39; Start 08/01/16 at 09:00; Stop 08/03/16 at 18:27; Status DC Levothyroxine Sodium (Synthroid) 88 mcg DAILY06 PO Last administered on 05:42; Start 08/04/16 at 06:00 Vitamin D (Vitamin D3) 50,000 unit WEEKLY PO Last administered on 08/11/16 08: 19; Start 08/04/16 at 09:00 Citalopram Hydrobromide (Celexa) 20 mg DAILY PO Last administered on 08/17/16 09:22; Start 08/04/16 at 09:00 Buspirone HCl (Buspar) 5 mg BID PO Last administered on 08/13/16 08:59; Start 08/03/16 at 21:00; Stop 08/13/16 at 18:18; Status DC Memantine (Namenda) 5 mg BID PO Last administered on 08/17/16 19:38; Start 08/04/16 at 21:00 Quetiapine Fumarate (SEROquel) 12.5 mg BID PO Last administered on 08/08/16 08: 18; Start 08/04/16 at 21:00; Stop 08/08/16 at 18:15; Status DC Cyproheptadine HCl (Periactin) 2 mg PRN QHS PRN PO SUPPLEMENT; Start 08/05/16 at 21:00; Stop 08/05/16 at 21:00; Status DC Cyproheptadine HCl (Periactin) 2 mg HS PO Last administered on 08/17/16 19:37 ; Start 08/05/16 at 21:00 Lorazepam (Ativan) 0.25 mg BID PO Last administered on 08/07/16 09:00; Start at 21:00; Stop 08/07/16 at 20:59; Status DC Lorazepam (Ativan) 0.25 mg DAILY PO Last administered on 08/08/16 08:16; Start 08/08/16 at 09:00; Stop 08/09/16 at 21:00; Status DC Metoprolol Succinate (Toprol Xl) 50 mg DAILY PO Last administered on 08/14/16 09:08; Start 08/09/16 at 09:00 Dextrose/Sodium Chloride 500 ml @ 0 mls/hr 1X ONCE IV ; Start 08/09/16 at 08:15 ; Stop 08/09/16 at 18:05; Status DC Dextrose/Sodium Chloride 1,000 ml @ 100 mls/hr Q10H IV ; Start 08/09/16 at 08:15 ; Stop 08/09/16 at 18:05; Status DC Buspirone HCl (Buspar) 5 mg TID PO Last administered on 08/17/16 19:37; Start 08/13/16 at 21:00 Active Scripts Active Reported Timolol Maleate 10 Ml Drops 1 Drop EACHEYE BID Docusate Sodium 100 Mg Capsule 100 Mg PO PRN DAILY PRN Melatonin 3 Mg Tablet 3 Mg PO PRN QHS PRN Lorazepam 0.5 Mg Tablet 0.5 Mg PO PRN Q6HRS PRN Travatan Z (Travoprost) 5 Ml Drops 1 Drop OU QHS Lorazepam 0.5 Mg Tablet 0.5 Mg PO BID Donepezil Hcl 10 Mg Tablet 10 Mg PO DAILY Sinemet 25-100 Mg Tablet (Carbidopa/Levodopa) 1 Each Tablet 1 Tab PO TID Aspirin Ec (Aspirin) 81 Mg Tablet.dr 81 Mg PO DAILY Miralax (Polyethylene Glycol 3350) 17 Gm Powd.pack 17 Gm PO PRN DAILY PRN Triamterene-Hctz 37.5-25 Mg Cp (Triamterene/Hydrochlorothiazid) 1 Each Capsule 1 Tab PO DAILY PRN Metoprolol Succinate ( Xl ) (Metoprolol Succinate) 100 Mg Tab.er.24h 100 Mg PO DAILY Bupropion Hcl Sr (Bupropion Hcl) 150 Mg Tablet.er 150 Mg PO BID Citalopram Hbr (Citalopram Hydrobromide) 40 Mg Tablet 40 Mg PO DAILY Fenofibrate 160 Mg Tablet 160 Mg PO DAILY Levothyroxine Sodium 88 Mcg Tablet 88 Mcg PO DAILYAC Nifedipine Er (Nifedipine) 60 Mg Tab.er.24 60 Mg PO DAILY BHAVNA CAMARA MD August 17, 2016 20:04
--- NOTE | 2016-08-17 23:37 | NUR ---
Behavior Intervention Response and Plan: BIRP Note: Behavior: Assumed Care of patient, patient located in dayroom at shift change. Patient exhibited the following behavior Calm, Disorganized, Cooperative. Brief assessment on rounds of vital signs, medication needs, lab studies, and pain. Treatment plan problems . Intervention: Patient assessed and the following interventions initiated safety checks 15 Minute Checks Personal Alarm in place , Call rivera in reach , Medications. Response: After interactions and interventions patient responded in the following manner, Calm , Disorganized ,Cooperative. Continue to assess behaviors and condition will continue to monitor throughout the shift as needed. Plan: Continue to monitor Master Treatment Plan for patient's progress toward short term goals of Decreased Agitation, Medication Compliance, intermediate manager goals to return to previous living setting vs placement. Continue to assess patient for changes in above assessment. Monitor for medication needs, pain, and safety concerns. Hourly rounding performed to ensure safe environment.
[2016-08-18] MEDS ORDERED: BUSP5TAB PO (04:02)
[2016-08-18] MEDS ORDERED: MEMA5TAB PO (04:05)
[2016-08-18] MEDS ORDERED: FENO145T32 PO (04:23)
[2016-08-18] MEDS ORDERED: CHOL500021 PO (04:34)
[2016-08-18] MEDS ORDERED: CYPR4TAB37 PO (04:45)
[2016-08-18] MEDS ORDERED: ACET325T9 PO (04:52)
[2016-08-18] MEDS ORDERED: LATA2.5D3 EACHEYE (04:56)
[2016-08-18] MEDS ORDERED: METO50TA10 PO (05:06)
[2016-08-18] MEDS: LEVOTHYROXINE 88 MCG TABLET PO SCH (05:51)
[2016-08-18 06:31] VITALS: BP 108/51
--- NOTE | 2016-08-18 08:20 | NUR ---
[facility] Social Work Discharge Planning Form Patient Name DESI SLATER Admit Date: 08/01/16 DISCHARGE PLAN Discharge Destination: [facility] Transportation: 1 pm Special Instructions/Notes: Please fax info to [facility]. DISCHARGE TO FACILITY Facility: [facility] Address: [address] [place] [address] Contact Name: CYNTHIA LAUGHLIN, Other: Vicky PCP: at facility Primary Care Follow Up at facility 7-10 days [facility]: Follow up after discharge at [facility]
[2016-08-18] MEDS: busPIRone 5 MG TABLET. PO SCH (08:42)
[2016-08-18] MEDS: MEMANTINE 5 MG TABLET. PO SCH (08:42)
[2016-08-18] MEDS: buPROPion SR 150 MG TABLET.SA PO SCH (08:42)
[2016-08-18] MEDS: DONEPEZIL HCL 10 MG TABLET PO SCH (08:42)
[2016-08-18] MEDS: ASPIRIN ENTERIC COATED 81 MG TABLET.DR. PO SCH (08:42)
[2016-08-18 08:43] VITALS: BP 108/51
[2016-08-18] MEDS: METOPROLOL SUCC 24HR ER 50 MG TAB.ER.24H. PO SCH (08:43)
[2016-08-18] MEDS: CARBIDOPA/LEVODOPA 25/100MG TABLET PO SCH (08:46)
[2016-08-18] MEDS: CITALOPRAM 20 MG TABLET. PO SCH (08:46)
[2016-08-18] MEDS: FENOFIBRATE NANOCRYSTALLIZED 145 MG TABLET PO SCH (08:46)
[2016-08-18] MEDS: TIMOLOL 0.5% OPHTH SOLUTION 5ML BOTTLE. OU SCH (08:47)
[2016-08-18] MEDS: CHOLECALCIFEROL (VITAMIN D3) 50,000 UNIT CAPSULE PO SCH (08:47)
--- NOTE | 2016-08-18 09:00 | NUR ---
Behavior Intervention Response and Plan: BIRP Note: Behavior: Assumed Care of patient, patient located in Dining Room at shift change. Patient exhibited the following behavior Calm, Disorganized, Compliant. Brief assessment on rounds of vital signs, medication needs, lab studies, and pain. Treatment plan problems 1 & 2. Intervention: Patient assessed and the following interventions initiated safety checks 15 Minute Checks Cognitive Assessment , Head to toe Assessment , Medications. Response: After interactions and interventions patient responded in the following manner, Calm , Appropriate ,Cooperative. Continue to assess behaviors and condition will continue to monitor throughout the shift as needed. Plan: Continue to monitor Master Treatment Plan for patient's progress toward short term goals of Decreased Agitation, Decreased Aggression, superintendent terminal goals to return to previous living setting vs placement. Continue to assess patient for changes in above assessment. Monitor for medication needs, pain, and safety concerns. Hourly rounding performed to ensure safe environment.
--- NOTE | 2016-08-18 13:00 | NUR ---
Discharge Note HC Patient is not currently a tobacco user. Follow up Appointment made: Date and Time 12:21 August 18, 2016 instructions and Social Work Discharge planning sheet sent to next level of care. [facility] contact Number for 24 hour support [phone] Discharge Packet Sent, and discusssed with patient and caregiver that includes Copies from the record of current medications with indications and frequencies, history and physical, Psychiatric Eval with reason and justification for admission, Lab values, Radiology results , follow up instructions for continuation of care, and Social Work discharge planning form: Yes Discharge Packet Faxed to Provider/Next Level of Care: YES Discharge Packet Faxed with discharge Order and Discharge diagnosis sent to: Discharge Packet Discussed, and report Given to: CANDIDO Marroquin at [facility] Discharge instruction sheet was included in the packet and sent with the patient upon discharge. Any Pending lab results can be obtained by calling [phone] Discharge Summary will be sent to next care provider when available. This includes the reason for admission, DC diagnosis, and next level of care recommendations.
--- NOTE | 2016-08-19 00:38 | PN ---
DATE: 08/16/2016 PSYCHIATRIC PROGRESS NOTE This is a late entry for 08/16/2016 covers the elements not covered in my initial note. SUBJECTIVE: The patient continues to be confused, but pleasant out for meals, cooperative. No CV, , eye, ENT system symptoms on review. Reliability poor. MENTAL STATUS EXAM: Oriented to herself. Insight, judgment, recent and remote memory, attention, concentration, fund of knowledge poor consistent with her diagnosis mentioned in my initial note. PLAN: Continue current psychotropics. Adjust as indicated. MAN Hannah CAMARA MD DR: RYLIE/zunilda JOB#: [id number] / [id number]
--- NOTE | 2016-08-19 00:45 | PN ---
DATE: 08/17/2016 PSYCHIATRIC PROGRESS NOTE This is late entry of date of service 08/17/2016, covers elements not covered in my initial note. SUBJECTIVE: The patient slept until 11:30 a.m., had no breakfast, up for lunch. REVIEW OF SYSTEMS: No CV, , eye, ENT system symptoms on review. Reliability poor. MENTAL STATUS EXAMINATION: Oriented to herself. Insight, judgment, recent and remote memory, attention, concentration, fund of knowledge poor, consistent with her diagnosis mentioned in my initial note. PLAN: Continue current psychotropics, transition to nursing facility this coming week. MAN Hannah CAMARA MD DR: RYLIE/zunilda JOB#: [id number] / [id number]
--- NOTE | 2016-08-19 18:10 | DS ---
DATE OF DISCHARGE: 08/18/2016 DISCHARGE SUMMARY/PSYCHIATRIC PROGRESS NOTE REASON FOR ADMISSION: Please refer to the admission history for details. Briefly, the patient is a 75-year-old female referred to us from _[facility] on account of refusing medications, poor sleep, agitation, combativeness, refusing to eat, only eating at times when her son was present. This is within the context of her diagnosis of dementia, Lewy body versus Alzheimer's and worsening symptoms of depression, psychosis. SIGNIFICANT FINDINGS AND CLINICAL COURSE: Following admission, the patient was seen daily individually by myself, followed medically per Dr. Joseph/Dr. Espinoza. Initially, she was extremely withdrawn, isolative, refusing to eat for several days at a time. Adjustments were made in her psychotropics gradually in a very focused manner and she seemed to respond positively to a combination of Wellbutrin 150 mg b.i.d., Celexa 20 mg a day, Aricept 10 mg a day, Ativan 0.5 mg q. 6 hours p.r.n., melatonin 3 mg at bedtime p.r.n., Namenda 5 mg b.i.d., BuSpar 5 mg t.i.d., Periactin 2 mg at bedtime. Prior to discharge on 08/18/2016, temperature 97.8, pulse 58, BP 109/51 and respirations 16. REVIEW OF SYSTEMS: No CV, , pulmonary, eye, ENT system symptoms on review. Reliability poor. MENTAL STATUS EXAMINATION: Oriented to herself. Insight, judgment, recent and remote memory, attention, concentration, fund of knowledge poor, consistent with her diagnosis. FINAL DIAGNOSES: Major neurocognitive disorder, multifactorial, Lewy body, Alzheimer, vascular with depression, delusion, behavioral disturbance; anxiety disorder, unspecified; impulse control disorder, unspecified. DISCHARGE MEDICATIONS: Please refer to the [facility]. DISCHARGE INSTRUCTIONS: Outpatient psychiatric and medical followup at the senior living. Time for discharge day management greater than 30 minutes. MAN Hannah CAMARA MD DR: RYLIE/zunilda JOB#: [id number] / [id number]
== END 2016-08-18 13:30 | disposition hospice, inpatient (51) | DRG 884 ==
LOC: ER 18:40 → GEROPSY 08-01 00:33
PROVIDERS: ADMIT Psychiatry & Neurology Psychiatry; ATTEND Psychiatry & Neurology Psychiatry
DX: F01.51 Vascular dementia, unspecified severity, with behavioral disturbance (principal); F02.81 Dementia in other diseases classified elsewhere, unspecified severity, with behavioral disturbance; G31.83 Neurocognitive disorder with Lewy bodies; G30.9 Alzheimer's disease, unspecified; E78.5 Hyperlipidemia, unspecified; E03.9 Hypothyroidism, unspecified; F32.9 Major depressive disorder, single episode, unspecified; F41.9 Anxiety disorder, unspecified; F43.20 Adjustment disorder, unspecified; F63.9 Impulse disorder, unspecified; I12.9 Hypertensive chronic kidney disease with stage 1 through stage 4 chronic kidney disease, or unspecified chronic kidney disease; Z66 Do not resuscitate; N18.9 Chronic kidney disease, unspecified; G20 Parkinson's disease; M19.90 Unspecified osteoarthritis, unspecified site; K59.09 Other constipation; Z85.3 Personal history of malignant neoplasm of breast
CPT/HCPCS: 36415; 80048; 80053; 80061; 81001; 82306; 82607; 83036; 83540; 83550; 83735; 84436; 84443; 84480; 84484; 85007; 85027; 86592; 86593; 87086; 93005; 96361; 96374; G0480; G6038; 80196; 99285-25; J7030